=== PATIENT | female | born 1965 | race Caucasian/White ===

== ENCOUNTER 2019-07-07 14:47 | Emergency (ER) | payer BC, SELFPAY ==
[2019-07-07 15:08] VITALS: BP 160/95; PULSE 68; RESP 20; TEMP 36.7; O2SAT 100
--- NOTE | 2019-07-07 16:03 | ED.SKABFB ---
HPI - Skin/Abscess/Foreign Bdy General Chief complaint: Skin/Abscess/Foreign Body Stated complaint: rash Time Seen by Provider: 07/07/19 16:03 Source: patient Mode of arrival: ambulatory Limitations: no limitations History of Present Illness HPI narrative: A 54 y/o female, who is a nonsmoker/occasional drinker, presents to with c/o a unilateral rash on her right neck and shoulder since last night. Pt states she could feel the bumps coming up . Pt placed Hydrocortisone cream on the area. The newest area is on the shoulder. Pt decided to come in today because she was experiencing somewhat llower, mid-back pain and was on the phone with her mother who thought it could be shingles. Pt has not started any new medications recently. Pt notes that she has a PMHx of a similar episode in the past. Pt has a PSHx of a right nephrectomy and just saw her kidney specialist a couple weeks ago who told her that her creatinine was normal. She reports itchiness. It is recommended to the pt to take a photo/log of the are; discussed because of such short duration will treat broadly for both allergic and viral causes. Onset (ago): day(s) (1) Location: neck (right) and RUE (shoulder) Related Data Home Medications Medication Instructions Recorded Confirmed aspirin 81 mg tablet,delayed 81 mg PO DAILY 04/22/19 07/07/19 release cholecalciferol (vitamin D3) 25 1,000 unit PO DAILY 04/22/19 07/07/19 mcg (1,000 unit) capsule multivitamin 1 tablet PO DAILY 04/22/19 07/07/19 ramipril 5 mg capsule 5 mg PO DAILY 04/22/19 07/07/19 Allergies Allergy/AdvReac Type Severity Reaction Status Date / Time No Known Allergies Allergy Mild Verified 07/07/19 15:07 Review of Systems Review of Systems: Narrative: General/Constitutional: Denies: weight loss,fever Eyes: Denies: Redness,discharge Ears/Nose/Throat: Denies: Epistaxis,ear discharge Respiratory: Denies: Hemoptysis Gastrointestinal: Denies: Vomiting, Bleeding-rectal Skin: Reports: a rash on right neck and shoulder, itchiness Musculoskeletal: Reports: back pain Neurologic: Denies: Focal Weakness,Sz Hematologic: Denies: Petechiae/Purpura Psychiatric: Denies: Suicidal ideation All systems reviewed & are unremarkable except as noted in HPI and below PMFSH Past Medical History Medical History Class 3 severe obesity with serious comorbidity and body mass index (BMI) of 50.0 to 59.9 in adult (2006) Dependence on other enabling machines and devices (~06/07/05) Encounter for hepatitis C screening test for low risk patient Obstructive sleep apnea on CPAP (~06/07/05) Vitamin D deficiency, unspecified (~05/2018) Surgical History Surgical History H/O of hysterectomy with bilateral oophorectomy (~1999) d/t endometriosis H/O right nephrectomy (~05/12/14) Previous section (~1989) daughter: term: prolonged labor S/P aortic valve replacement (~05/12/14) S/P laparoscopic cholecystectomy (~2003) S/P robot-assisted surgical procedure (~05/12/14) Family History Family History Mother Family history of migraine headaches Cerebrovascular accident Hypothyroidism (acquired) H/O parathyroidectomy Father , 2016 Hypertension Diabetes mellitus Throat cancer Other Hypothyroidism (acquired) Social History Social History Social History: . . 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 Smoking status: Never smoker Second hand tobacco smoke exposure: No Alcohol intake: current Substance use: never Gender identity (if verbalized by the patient): Female Spiritual care concerns: No Agree to blood products: Yes Comments PCP: Dr. Dior At time of signature, agree with nursing past medical, surgical, social and family history. There is no relevant family history pertinent to
== END 2019-07-07 16:28 | disposition home or self-care (01) ==
PROVIDERS: Emergency Provider Emergency Medicine; PCP Family Medicine
DX: L30.8 Other specified dermatitis (principal)
CPT/HCPCS: 99213; G0463

== ENCOUNTER 2019-11-12 14:14 | Outpatient (CLI) | payer BC, SELFPAY ==
--- NOTE | ~2019-11-12 | MM_ITS ---
EXAMINATION: MM screening [facility] BI w darian HISTORY: Screening mammogram TECHNIQUE: Craniocaudal and mediolateral oblique 3-D tomosynthesis images were obtained and synthetic 2-D images were generated. CAD analysis was submitted and interpreted. COMPARISON: No prior mammogram is available for comparison at this institution. BREAST PARENCHYMAL COMPOSITION: The breasts are almost entirely fatty. FINDINGS: RIGHT BREAST: An asymmetry is present in the anterior third of the inner breast seen on the nipple in profile craniocaudal view. LEFT BREAST: A mass is present in the anterior third of the inner breast approximately 7 cm from the nipple.. IMPRESSION: 1. Bilateral breast findings as described above which may represent the patient's baseline however no comparison is currently available. 2. Comparison with prior mammograms is necessary. BI-RADS Category 0: Incomplete: Needs comparison with prior mammograms. Reviewed, dictated and finalized at location A. IMPRESSION: 1. Bilateral breast findings as described above which may represent the patient 's baseline however no comparison is currently available. 2. Comparison with prior mammograms is necessary. BI-RADS Category 0: Incomplete: Needs comparison with prior mammograms.
== END 2019-11-12 14:15 | disposition home or self-care (01) ==
PROVIDERS: PCP Family Medicine; Visit Provider Family Medicine
DX: Z12.31 Encounter for screening mammogram for malignant neoplasm of breast (principal); N63.20 Unspecified lump in the left breast, unspecified quadrant
CPT/HCPCS: 77063; 77067

== ENCOUNTER 2019-12-13 12:15 | Outpatient (CLI) | payer BC, SELFPAY ==
--- NOTE | ~2019-12-13 | MMUS_ITS ---
EXAMINATION: MM diagnostic mammo BI, US breast BI limited HISTORY: Right breast asymmetry and left breast mass on screening mammogram TECHNIQUE: Additional 3-D tomosynthesis images of the breasts were performed and synthetic 2-D images were generated. CAD analysis was submitted and interpreted. High resolution limited bilateral breast ultrasound was performed. COMPARISON: 11/12/2019, 08/08/2018, 08/08/2017 FINDINGS: MAMMOGRAPHIC FINDINGS: No definite persistent right breast asymmetry and no left breast mass is identified with spot dio abby views. There is no suspicious mass, calcification, or architectural distortion in either breast. Scattered benign-appearing calcifications are present. ULTRASOUND: A 4 mm cyst is noted at the 3:00 position 1 cm from the nipple in the right breast. There is no suspi cious cystic or solid mass in either breast in the region of the mammographic findings in question. IMPRESSION: 1. No mammographic or sonographic evidence of malignancy. 2. Recommend routine screening mammography in one year. BI-RADS Category 2: Benign finding(s). Reviewed, dictated and finalized at location A. IMPRESSION: 1. No mammographic or sonographic evidence of malignancy. 2. Recommend routine screening mammography in one year. BI-RADS Category 2: Benign finding(s).
== END 2019-12-13 12:16 | disposition home or self-care (01) ==
LOC: ANHIMG 12:15
PROVIDERS: PCP Family Medicine; Visit Provider Family Medicine
DX: R92.8 Other abnormal and inconclusive findings on diagnostic imaging of breast (principal)
CPT/HCPCS: 76642; 77066

== ENCOUNTER → 2020-06-02 08:00 | Outpatient (CLI) | payer BC, SELFPAY ==
--- NOTE | ~2020-06-02 | CT_ITS ---
EXAMINATION: CT abdomen pelvis wo con DATE: 06/02/2020 08:22 INDICATION: Right lower quadrant pain TECHNIQUE: Computed tomography (CT) of the abdomen and pelvis was performed without intravenous contr ast. The dose-length product was 1204.17 mGy-cm. Automated exposure control and iterative reconstruct ion technique were employed. COMPARISON: None. FINDINGS: Lung bases are unremarkable. Heart size normal. No significant pleural or pericardial effus ion. Status post cholecystectomy. The liver, spleen, pancreas, adrenal glands are unremarkable. Right kidney is not identified. Surgica l changes right upper abdomen, likely from previous nephrectomy. Small hiatal hernia. Small fat-conta ining umbilical hernia. Nonobstructive bowel gas pattern. No abnormal pelvic masses or fluid collections. There is a 3.6 cm l eft renal cyst measuring 7 Hounsfield units. No free air or free fluid. Normal appendix. No significa nt vascular abnormality. No lymphadenopathy. IMPRESSION: 1. No acute abdominal abnormality. Findings to account for patient's symptoms. Reviewed, dictated and finalized at location A. 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
== END ==
PROVIDERS: PCP Nurse Practitioner Family; Visit Provider Nurse Practitioner Family
DX: R10.31 Right lower quadrant pain (principal)
CPT/HCPCS: 74176

== ENCOUNTER 2020-12-11 15:40 | Outpatient (CLI) | payer BC, SELFPAY ==
--- NOTE | ~2020-12-11 | MM_ITS ---
EXAMINATION: MM screening [place] BI w darian HISTORY: Screening TECHNIQUE: Craniocaudal and mediolateral oblique 3-D tomosynthesis images were obtained and synthetic 2-D images were generated. CAD analysis was submitted and interpreted. COMPARISON: Comparison to multiple prior studies sequentially, with oldest reviewed study dated 08/08. BREAST PARENCHYMAL COMPOSITION: There are scattered areas of fibroglandular density. FINDINGS: There is no evidence of suspicious mass, calcification, or architectural distortion to sugg est malignancy in either breast. There has been no suspicious interval change. IMPRESSION: 1. No mammographic evidence of malignancy. 2. Recommend routine screening mammography in one year. BI-RADS Category 1: Negative Reviewed, dictated and finalized at location A.
== END 2020-12-11 15:41 | disposition home or self-care (01) ==
LOC: ANHIMG 15:43
PROVIDERS: PCP Nurse Practitioner Family; Visit Provider Family Medicine
DX: Z12.31 Encounter for screening mammogram for malignant neoplasm of breast (principal)
CPT/HCPCS: 77063; 77067

== ENCOUNTER 2022-01-28 10:02 | Outpatient (CLI) | payer BC, SELFPAY ==
--- NOTE | ~2022-01-28 | MM_ITS ---
EXAMINATION: MM screening [facility] BI w darian HISTORY: Screening mammogram TECHNIQUE: Craniocaudal and mediolateral oblique 3-D tomosynthesis images were obtained and synthetic 2-D images were generated. CAD analysis was submitted and interpreted. COMPARISON: 12/11/2020, 12/13/2019, 11/12/2019 BREAST PARENCHYMAL COMPOSITION: The breasts are almost entirely fatty. FINDINGS: Scattered benign-appearing calcifications are present. There is no suspicious mass, calcifi cation, or architectural distortion to suggest malignancy in either breast. There has been no suspici ous interval change. IMPRESSION: 1. No mammographic evidence of malignancy. 2. Recommend routine screening mammography in one year. BI-RADS Category 2: Benign finding(s). Reviewed, dictated and finalized at location A.
== END 2022-01-28 10:03 | disposition home or self-care (01) ==
LOC: ANHIMG 10:04
PROVIDERS: PCP Nurse Practitioner Family; Visit Provider Nurse Practitioner Family
DX: Z12.31 Encounter for screening mammogram for malignant neoplasm of breast (principal)
CPT/HCPCS: 77063; 77067

== ENCOUNTER 2022-04-07 15:29 | Outpatient (CLI) | payer BC, SELFPAY ==
--- NOTE | ~2022-04-07 | XR_ITS ---
XR foot LT 2V DATE: 04/07/2022 15:50 INDICATION: Left foot pain TECHNIQUE: AP and lateral views COMPARISON: 10/24/2013 left foot FINDINGS: There is prominent plantar calcaneal enthesopathy without associated erosive change or ghulam ostitis. Mild hallux valgus and bunion deformity. There is moderate osteoarthritis at the first tarsometatarsa l joint. There is moderate osteoarthritis at the first metatarsophalangeal joint. IMPRESSION: Mild hallux valgus and bunion deformity Osteoarthritis Plantar calcaneal enthesopathy Reviewed, dictated and finalized at location A. 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
== END 2022-04-07 15:30 | disposition home or self-care (01) ==
PROVIDERS: PCP Nurse Practitioner Family; Visit Provider Nurse Practitioner Family
DX: M19.072 Primary osteoarthritis, left ankle and foot (principal); M77.32 Calcaneal spur, left foot; M20.12 Hallux valgus (acquired), left foot
CPT/HCPCS: 73620

== ENCOUNTER 2023-05-25 15:19 | Outpatient (CLI) | payer BC, SELFPAY ==
--- NOTE | ~2023-05-25 | MM_ITS ---
EXAMINATION: MM screening [place] BI w darian HISTORY: Screening mammogram TECHNIQUE: Craniocaudal and mediolateral oblique 3-D tomosynthesis images were obtained and synthetic 2-D images were generated. CAD analysis was submitted and interpreted. COMPARISON: 01/28/2022, 12/11/2020 bilateral screening mammogram examinations BREAST PARENCHYMAL COMPOSITION: The breasts are almost entirely fatty. FINDINGS: There is no evidence of suspicious mass, calcification, or architectural distortion to sugg est malignancy in either breast. There has been no suspicious interval change. IMPRESSION: 1. No mammographic evidence of malignancy. 2. Recommend routine screening mammography in one year. BI-RADS Category 1: Negative Reviewed, dictated and finalized at location A. 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
== END 2023-05-25 15:20 | disposition home or self-care (01) ==
LOC: ANHIMG 15:22
PROVIDERS: PCP Family Medicine; Visit Provider Family Medicine
DX: Z12.31 Encounter for screening mammogram for malignant neoplasm of breast (principal)
CPT/HCPCS: 77063; 77067

== ENCOUNTER 2024-02-19 10:01 | Emergency (ER) | payer BC, SELFPAY ==
[2024-02-19 10:05] VITALS: BP 132/65; PULSE 68; RESP 20; TEMP 35.9; O2SAT 98
--- NOTE | 2024-02-19 10:10 | ED.SKABFB ---
HPI - Skin/Abscess/Foreign Bdy General Chief complaint: Skin/Abscess/Foreign Body Stated complaint: Rash Time Seen by Provider: 02/19/24 10:11 Source: patient, RN notes reviewed and old records reviewed Mode of arrival: ambulatory Limitations: no limitations History of Present Illness HPI narrative: Patient presents with complaints of rash to abdomen and arms. She reports the month she has had a scattered rash for a little more than 1 week, says it is worsening. She attributes this to starting prednisone about 10 days ago, says that she discontinued the prednisone because she believes that is what caused her rash. She is stating that her rash has worsened despite stopping the prednisone. She has been using topical ointments with no success. She denies any change in detergents, lotions, soaps. Has not ingested anything unusual recently with the exception of prednisone. She does report that she has an outside dog that comes in after rolling in the plants outside. She voices no other concerns or complaints Related Data Home Medications Medication Instructions Recorded Confirmed aspirin 81 mg tablet,delayed 81 mg PO DAILY 04/22/19 02/19/24 release (Martine Low Dose Aspirin) multivitamin 1 tablet PO DAILY 04/22/19 02/19/24 cholecalciferol (vitamin D3) 50 50 mcg PO DAILY 04/28/20 02/19/24 mcg (2,000 unit) capsule carvedilol 25 mg tablet (Coreg) 25 mg PO Q12H 07/17/23 02/19/24 allopurinol 300 mg tablet 300 mg PO DAILY 01/17/24 02/19/24 empagliflozin 10 mg tablet 10 mg PO DAILY 01/17/24 02/19/24 (Jardiance) furosemide 20 mg tablet 20 mg PO DAILY 01/17/24 02/19/24 sacubitril 24 mg-valsartan 26 mg 1 tablet PO BID 01/17/24 02/19/24 tablet (Entresto) Allergies Allergy/AdvReac Type Severity Reaction Status Date / Time No Known Allergies Allergy Mild Verified 02/19/24 10:12 Review of Systems Review of Systems: All systems reviewed & are unremarkable except as noted in HPI and below Constitutional: Constitutional: Reports no additional constitutional complaints ENT: Reports system reviewed and no additional complaints, except as documented Cardiovascular: Cardiovascular: Reports no additional cardiovascular complaints Respiratory: Respiratory: Reports no additional respiratory complaints Gastrointestinal: Gastrointestinal: Reports no additional gastrointestinal complaints Integumentary/Breasts: Skin/Breast: Reports system reviewed and no additional complaints, except as docu, Reports as per HPI and Reports rash PMFSH Past Medical History Medical History (Updated 02/20/24 @ 00:01 by Kaiden Valenzuela) Bilateral chronic knee pain Chronic gout, unspecified, 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) Chronic right hip pain Cyst of skin Disorder of kidney and ureter, unspecified (~04/2014) Essential (primary) hypertension (~2013) Hx of renal cell carcinoma Hyperlipidemia LDL goal <100 (~10/2018) Left foot pain Nonischemic cardiomyopathy Obstructive sleep apnea on CPAP (~06/07/05) Overactive bladder (~05/2013) Overweight (05/02/16) Postmenopausal (~05/2013) Right lower quadrant pain Type 2 diabetes mellitus without complications Surgical History Surgical History H/O of hysterectomy with bilateral oophorectomy (~1999) d/t endometriosis H/O right nephrectomy (~05/12/14) Hx of colonoscopy with polypectomy (~03/2020) S/P aortic valve replacement (~02/2014) S/P robot-assisted surgical procedure (~05/12/14) Status post transcatheter aortic valve replacement (~08/2023) Family History Family History Mother Family history of migraine headaches Cerebrovascular accident Hypothyroidism (acquired) H/O parathyroidectomy Father , 2016 Hypertension Diabetes mellitus Throat cancer Other Hypothyroidism (acquired) Social History Social History (Updated 02/01/24 @ 10:50 by LACI Butler) Social His
== END 2024-02-19 11:20 | disposition home or self-care (01) ==
PROVIDERS: Emergency Provider Nurse Practitioner Family; PCP Family Medicine
DX: L30.9 Dermatitis, unspecified (principal); I10 Essential (primary) hypertension; E78.5 Hyperlipidemia, unspecified; G47.33 Obstructive sleep apnea (adult) (pediatric); E11.9 Type 2 diabetes mellitus without complications; M10.9 Gout, unspecified; I42.8 Other cardiomyopathies; Z95.2 Presence of prosthetic heart valve; Z85.528 Personal history of other malignant neoplasm of kidney; Z90.5 Acquired absence of kidney
CPT/HCPCS: 99213; G0463

== ENCOUNTER 2024-05-27 08:56 | Outpatient (CLI) | payer BC, SELFPAY ==
--- NOTE | ~2024-05-27 | MM_ITS ---
EXAMINATION: MM screening [place] BI w darian HISTORY: Screening mammogram TECHNIQUE: Craniocaudal and mediolateral oblique 3-D tomosynthesis images were obtained and synthetic 2-D images were generated. CAD analysis was submitted and interpreted. COMPARISON: 05/25/2023, 01/28/2022, 12/11/2020 BREAST PARENCHYMAL COMPOSITION:Not Dense. The breasts are almost entirely fatty FINDINGS: No suspicious mass, calcification, or architectural distortion are identified in either neli ast to suggest malignancy. There has been no suspicious interval change. IMPRESSION: No mammographic evidence of malignancy. Recommend routine screening mammography in one year. BI-RADS Category 1: Negative Reviewed, dictated and finalized at location . 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
== END 2024-05-27 08:57 | disposition home or self-care (01) ==
LOC: ANHIMG 08:58
PROVIDERS: PCP Family Medicine; Visit Provider Family Medicine
DX: Z12.31 Encounter for screening mammogram for malignant neoplasm of breast (principal)
CPT/HCPCS: 77063; 77067

== ENCOUNTER 2024-07-24 11:42 | Outpatient (CLI) | payer BC, SELFPAY ==
--- OUTSIDE RECORDS SUMMARY | 2024-07-24 13:35 | XMS_ITS | Referral Summary ---
Author Organization [facility] Address [address] [place] [address] Care Team Providers Care Regional Hr Manager Name Role Phone Lynette Henry RN Unavailable [phone] Raul Jacobo MD Unavailable Unavailable Shadi Molina MD Primary Care Provider Cresencio Cisse MD Unavailable [phone] Source Comments [facility],non-owned Affiliates and Associated Physician Practices is amultiple site organization consisting of ambulatory clinics and hospital sitesin [place], [place], [place] and [place]. This disclosure is being madepursuant to the Care Everywhere program and may not contain all information available regarding this patient. Last updated 18.[facility] Encounters Date Type Department Care Team Description 07/12/2024 Telephone [facility] [address] [place] [address], [address] [address] Cyndee Weaver MD Med Change Request 07/12/2024 Refill [facility] [id number] [place] [address], [address] [address] Cyndee Weaver MD MEDICATION REFILL 06/25/2024 Refill [facility] [address] [place] [address], [address] [address] Cyndee Weaver MD MEDICATION REFILL 04/23/2024 Travel 04/23/2024 11:20 AM BOAT TENDER Office Visit [facility] [address], [address] [place] [address] Cyndee Weaver MD Nonischemic cardiomyopathy, EF 30% > 50% > normal (Primary Dx); Aortic insufficiency, severe, bioprosthetic AVR in 2013.Gradient 43/22 mmHg in 12/2021; S/p TAVR (transcatheter aortic valve replacement), bioprosthetic from Last 3 Months Allergies No known active allergies Medications * Be aware that medications may not be up to date on this document. Alwaysverify current medications with the patient. Medication Sig Dispensed Refills Start Date End Date Status aspirin (ASPIRIN) 81 MG chew tablet Take 1 Tab by mouth once daily. 03/11/2014 Active multivitamin daily (THERAGRAN) tablet Take 1 Tab by mouth daily with breakfast. 03/11/2014 Active allopurinol (ZYLOPRIM) 300 MG tablet 1 (one) tablet once daily 07/23/2014 Active oxybutynin CR 24hr (DITROPAN-XL) 5 MG tablet TAKE 1 TABLET DAILY 90 tablet 11 12/18/2017 Active Vitamin D, Cholecalciferol , 1000 units Take 1 (one) tablet by mouth once daily Active simvastatin (Zocor) 20 MG tablet Combined both atorvastatin and simvastatin in the toshia bottle and takes whatever comes out. 07/05/2023 Active dulaglutide (Trulicity) 0.75 MG/0.5ML injection Inject 0.75 (three-quarters) mg subcutaneously every 7 days Active empagliflozin (Jardiance) 10 MG tablet Take 1 (one) tablet by mouth once daily 100 tablet 3 10/21/2023 5 Active empagliflozin (Jardiance) 10 MG tablet Take 1 (one) tablet by mouth once daily 90 tablet 3 10/24/2023 Active carvedilol (Coreg) 25 MG tablet Take 1 (one) tablet by mouth 2 times daily with morning and evening meal 180 tablet 3 06/29/2024 6 Active furosemide (Lasix) 20 MG tablet Take 1 (one) tablet by mouth once daily 90 tablet 3 07/13/2024 6 Active losartan (Cozaar) 50 MG tablet Take 1 (one) tablet by mouth once daily 90 tablet 3 07/12/2024 Active carvedilol (Coreg) 25 MG tablet Take 1 (one) tablet by mouth 2 times daily with morning and evening meal 180 tablet 3 07/06/2023 5 Discontinue d(Reorder) furosemide (Lasix) 20 MG tablet Take 1 (one) tablet by mouth once daily 90 tablet 3 08/23/2023 5 Discontinue d(Reorder) sacubitril-vals derek (Entresto) 24-26 MG tablet Take 1 (one) tablet by mouth 2 times daily 180 tablet 3 10/20/2023 5 Discontinue d(List Clean-Up) losartan (Cozaar) 50 MG tablet Take 1 (one) tablet by mouth once daily 5 Discontinue d(Reorder) Active Problems Problem Noted Date Diagnosed Date S/p TAVR (transcatheter aort ic valve replacement), bioprosthetic 09/25/2023 Overview (09/25/2023): 09/25/23 Dr. Patterson/Dr. Foy implanted an [employer] 26 mm S3 Ultra via RCFA access. Intra-op aortic mean gradient 10 mmHg, no PVL on echocardiogram. Severe aortic stenosis 09/06/2023 Moderate bioprosthetic aortic valve stenosis. Aortic insufficiency, severe , bioprosthetic AVR in 2013.Gradient 43/22 mmHg in 12/202109/18/2015 Right nephrectomy for renal cell carcinoma 09/23 Nonischemic cardiomyopathy, EF 30% > 50% > derrick l 04/21/2014 DOREEN (obstructive sleep apnea) 04/21/2014 Benign hypertension 10/12/2013 Overview (12/30/2021): BENIGN HYPERTENSION Resolved Problems Problem Noted Date Diagnosed Date Resolved Date Renal mass 05/11/2014 09/22/2014 Aortic insufficiency, severe , s/p bioprosthetic AVR in 01/201404/21/2014 09/18/2015 Hemoptysis 02/18/2014 04/21/2014 Elevated troponin 02/18/2014 04/21/2014 Renal mass, bilateral 02/18/20142014 Social History Tobacco Use Types Packs/Day Years Used Date Smoking Tobacco: Never Smokeless Tobacco: Never Tobacco Cessation:Counseling Given: Not Answered Alcohol Use Standard Drinks/Week Comments No 0 (1 standard drink = 0.6 oz pur e alcohol) AUDIT-C Answer Date Recorded Q1: How often do you have a drink containing alc ohol? Monthly or less 09/25/2023 Q2: How many drinks containi ng alcohol do you have on a typical day when you are drinking? 1 or 2 09/25/2023 Q3: How often do you have si x or more drinks on one occasion? Never 09/25/2023 Overall Financial Resource Strain (CARDIA) Answe r Date Recorded How hard is it for you to pa y for the very basics like food, housing, medical care, and heating? Not hard at all 09/26/2023 [facility] [place] [facility] - Occupational Stress Questionnaire Answer Date Recorded Do you feel stress - tense, restless, nervous, or anxious, or unable to sleep at night because your mind is troubled all the time - these days? Not at all 09/26/2023 Hunger Vital Sign Answer Date Recorded Within the past 12 months, y ou worried that your food would run out before you got the money to buy more. Never true 09/26/19 24 Within the past 12 months, t he food you bought just didn't last and you didn't have money to get more. Never true 09/26/2023 PRAPARE - Transportation Answer Date Re corded In the past 12 months, has l ack of transportation kept you from medical appointments or from getting medications? No 08/29 In the past 12 months, has l ack of transportation kept you from meetings, work, or from getting things needed for daily living? No 09/26/2023 Housing Stability Vital Sign Answer Adam e Recorded In the last 12 months, was t here a time when you were not able to pay the mortgage or rent on time? No 09/26/2023 In the last 12 months, how many places have you lived? 1 09/26/2023 In the last 12 months, was t here a time when you did not have a steady place to sleep or slept in a intermediate (including now)? No 09/26/2023 Sex and Gender Information Value Date Recorded Sex Assigned at Not on file Gender Identity Not on file Sexual Orientation Not on file Last Filed Vital Signs Vital Sign Reading Time Taken Comments Blood Pressure 116/69 04/23/2024 11:09 AM BOAT TENDER Pulse 76 04/23/2024 11:09 AM BOAT TENDER Temperature 36.5 C (97.7 F) 09/26/2023 7:39 AM CDT Respiratory Rate 20 09/26/2023 7:39 AM CDT Oxygen Saturation 100% 09/26/2023 9:25 AM CDT Inhaled Oxygen Concentration 21% 11:35 PM CDT Weight 167.9 kg (370 lb 3.2 oz) 024 11:09 AM BOAT TENDER Height 175.3 cm (5' 9.02 ) 04/23/2024 1 1:09 AM BOAT TENDER Body Mass Index 54.64 04/23/2024 11:09 AM BOAT TENDER Functional Status Functional Status Response Date of Assess ment Is person deaf or have serious hearing difficult y? No 09/26/2023 Is person blind or have serious difficulty seein g? No 09/26/2023 Does person have serious dif ficulty walking/climbing stairs? No 09/26/2023 Does person have difficulty dressing/bathing? No 09/26/2023 Does person have difficulty doing errands alone? No 09/26/2023 Cognitive Status Response Date of Assessm ent Does person have difficulty concentrating/remembering/making decisions? No 09/26/2023 Plan of Treatment Upcoming Encounters Date Type Department Care Team (Late st Contact Info) Description 10/23/2024 11:10 AM CDT Office Visit [facility] [address] [place] [address], [address] [address] Cyndee Weaver MD [address] [place] [phone] Medical Devices Implanted Type Area American History Teacher Device Identifier Shelf Expiration Date Model / Serial / Lot Vascular Graft Implanted:Qty: 1 on 03/07/2014 by Hammad Reno MD at [facility] Graft Aorta Maquet 07/29/2017 [id number] / / Vlv Magna Ease All Sz - [id number] Implanted:Qty: 1 on 03/07/2014 by Hammad Reno MD at [facility] N/A: Heart [employer] 10/05/2017 [id number] / [id number] / Cath Pace Eltrd Biplr Dist Tip Balln Flw - [id number] Implanted:Qty: 1 on 09/25/2023 by Toshia Patterson MD at [facility] [employer] [id number] 02/25/2025 [id number] / [id number] / [id number] Valve Aor Evolut Fx 29mm - [id number] Implanted:Qty: 1 on 09/25/2023 by Toshia Patterson MD at [facility] [employer] [id number] 05/31/2025 [id number] X- 29 / [id number] / [id number] Vlv Aor 26mm Amparo 3 Cmndr Edwrd - [id number] Implanted:Qty: 1 on 09/25/2023 by Toshia Patterson MD at [facility] [employer] [id number] 06/25/2026 [id number] / [id number] / [id number] Procedures Procedure Name Priority Date/Time Associated Diagnosis Comments RENAL FUNCTION PANEL AM Draw 09/26/2023 6:11 AM CDT from Last 3 Months or Most Recently Relevant to Health Maintenance Results * (ABNORMAL) RENAL FUNCTION PANEL (09/26/2023 6:11 AM CDT) BUN 13 7 - 26 mg/dL 09/26/2023 6:58 AM [facility] Creatinine 0.89 0.56 - 0.96 mg/dL 09/26/2023 6:58 AM [facility] Sodium 140 136 - 145 mmol/L 09/26/2023 6:58 AM [facility] Potassium 3.9 3.5 - 4.5 mmol/L 09/26/2023 6:58 AM [facility] Chloride 110(H) 98 - 107 mmol/L 09/26/2023 6:58 AM [facility] CO2 23 22 - 29 mmol/L 09/26/2023 6:58 AM [facility] Glucose 94 70 - 115 mg/dL 09/26/2023 6:58 AM [facility] Albumin 3.3(L) 3.4 - 5.0 g/dL 09/26/2023 6:58 AM [facility] Calcium 9.7 8.4 - 10.2 mg/dL 09/26/2023 6:58 AM [facility] Phosphorus 2.9 2.9 - 5.1 mg/dL 09/26/2023 6:58 AM [facility] Anion Gap 7 6 - 16 09/26/2023 6:58 AM [facility] BUN/Creatinine Ratio 15 7 - 23 09/26/2023 6:58 AM [facility] Osmolality Calculated 290 275 - 295 mOsm/kg 09/26/2023 6:58 AM [facility] eGFR by CKD-EPI 75(L) >=90 mL/min/1.7 3 m2 09/26/2023 6:58 AM [facility] Blood BLOOD SPECIMEN / Unknown Lab Venipuncture / Unknown 09/26/2023 6:11 AM CDT 09/26/2023 6:25 AM T Toshia Patterson MD LAB - CHEMISTRY FAHAD FUENTES [facility] Organization Address [facility]/State/ZIP Co de Phone Number [facility] [address] [place] [address], [facility] [phone] from Last 3 Months or Most Recently Relevant to Health Maintenance Advance Directives * Full Code (Latest Code Status on File) Date Activated Date Inactivated Comments 09/26/2023 7:55 AM 09/26/2023 1:24 PM * Full Code Date Activated Date Inactivated Comments 09/25/2023 1:55 PM 09/26/2023 7:55 AM * Full Code Date Activated Date Inactivated Comments 06/26/2023 11:06 AM 06/26/2023 2:52 PM * Full Code Date Activated Date Inactivated Comments 05/12/2014 1:03 PM 05/14/2014 10:44 AM * Full Code Date Activated Date Inactivated Comments 03/07/2014 1:05 PM 03/12/2014 2:13 PM Care Teams Regional Hr Manager Relationship Specialty Start Date End Date Shadi Molina MD [address] [place] [address] PCP - General Family Medicine 12/30/21 Lynette Henry, RN Clinical Psychiatrist 02/18/14 Raul Jacobo MD Cardiovascular Disease 12/10/19 [place] [address] [facility] [address] [place] [address] Cardiovascular Disease 10/05/23
--- OUTSIDE RECORDS SUMMARY | 2024-07-24 13:36 | XMS_ITS ---
Author Organization [facility] Address [address] [place] [address] Care Team Providers Care Crane Service Technician Name Role Phone Lynette Henry RN Unavailable [phone] Raul Jacobo MD Unavailable Unavailable Shadi Molina MD Primary Care Provider Cresencio Cisse MD Unavailable [phone] Active Problems Problem Noted Date Diagnosed Date S/p TAVR (transcatheter aort ic valve replacement), bioprosthetic 09/25/2023 Overview (09/25/2023): 09/25/23 Dr. Patterson/Dr. Foy implanted an [employer] 26 mm S3 Ultra via RCFA access. [...] Benign hypertension 10/12/2013 Overview (12/30/2021): BENIGN HYPERTENSION Current Oncology Plans No current plan information found. Past Plans No past plan information found. Radiation Treatments * No radiation treatments are documented for this patient in Epic. Treatments may have been administered in another system. Lifetime Dose Tracking * Chemical Lifetime Dose Automatic Entry Manual Entr y Air Kerma 4,436.45 mGy 0 mGy 4,436.45 mGy Resolved Problems Problem Noted Date Diagnosed Date Resolved Date Renal mass 05/11/2014 09/22/2014 Aortic insufficiency, severe , s/p bioprosthetic AVR in 01/201404/21/2014 09/18/2015 Hemoptysis 02/18/2014 04/21/2014 Elevated troponin 02/18/2014 04/21/2014 Renal mass, bilateral 02/18/20142014
--- OUTSIDE RECORDS SUMMARY | 2024-07-24 13:36 | XMS_ITS | Clinical Summary ---
Author Organization [facility] Address [address] [place] [address] Phone Care Team Providers Care Art Model Name Role Phone Shadi Molina MD Primary Care Provider Allergies No known active allergies Medications Medication Sig Dispensed Refills Start Date End Date Status aspirin (ASPIR) 81 MG EC tablet 1 daily 0 06/01/2018 Active Multiple Vitamins-Minerals (MULTIVITAMIN ADULT) tablet 1 alex;u 0 06/01/2018 Active allopurinol (ZYLOPRIM) 300 MG tablet 1 bid 0 06/01/2018 Active Cholecalciferol (VITAMIN D3) 1000 units capsule 1 daily 0 06/04/2018 Active oxybutynin XL (DITROPAN-XL) 10 MG 24 hr tablet 04/22/2019 Active atorvastatin (LIPITOR) 20 MG tablet 04/09/2019 Active metFORMIN (GLUCOPHAGE) 1000 MG tablet TK 1 T PO D 10/22/2019 Active ramipril (ALTACE) 10 MG capsule 05/17/2021 Active carvedilol (COREG) 12.5 MG tablet Take 1 tablet (12.5 mg total) by mouth 2 (two) times a day 180 tablet 3 05/20/2021 Active Active Problems Problem Noted Date Diagnosed Date Aortic valve disorder 05/31/2019 Diabetes mellitus without complication 0 Essential (primary) hypertension 06/04/2018 Obstructive sleep apnea 06/04/2018 Nonrheumatic aortic valve stenosis 06/04/2018 Vitamin D deficiency 06/04/2018 Malignant neoplasm of right kidney, except renal pelvis 06/04/2018 Cardiomyopathy 04/21/2014 Aortic valve regurgitation 10/12/2013 Overview (06/05/2019): aortic insufficiency Gout 10/12/2013 Overview (06/05/2019): GOUT NOS Pure hypercholesterolemia 10/12/2013 Overview (06/05/2019): PURE HYPERCHOLESTEROLEM Resolved Problems Problem Noted Date Diagnosed Date Resolved Date Chronic kidney disease, stage 3 (moderate) 06/04/2018 05/14/2021 Immunizations Name Administration Dates Next Due Influenza TIV (IM) 02/26/2022,,06/05/2019(Deferred: Patient Refused) Tdap 04/01/2009 Family History Medical History Relation Comments Kidney disease Neg Hx Social History Tobacco Use Types Packs/Day Years Used Date Smoking Tobacco: Never Smokeless Tobacco: Never Alcohol Use Standard Drinks/Week Comments Yes 0 (1 standard drink = 0.6 oz pur e alcohol) Alcoholic Drinks/day: rare Sex and Gender Information Value Date Recorded Sex Assigned at Not on file Gender Identity Not on file Sexual Orientation Not on file Last Filed Vital Signs Vital Sign Reading Time Taken Comments Blood Pressure 118/80 05/18/2022 1:11 PM SALES SPECIAL AGENT Pulse 72 05/18/2022 1:11 PM SALES SPECIAL AGENT Temperature 35.4 C (95.7 F) 05/18/2022 1:11 PM SALES SPECIAL AGENT Respiratory Rate - - Oxygen Saturation - - Inhaled Oxygen Concentration - - Weight 180 kg (397 lb) 05/18/2022 1:11 PM SALES SPECIAL AGENT Height 172.7 cm (5' 8 ) 05/18/2022 1:11 PM SALES SPECIAL AGENT Body Mass Index 60.36 05/18/2022 1:11 PM SALES SPECIAL AGENT Plan of Treatment Health Maintenance Due Date Last Done Comments Influenza Vaccine (#1) 2024 02/26/2022, 2020 Care Teams Art Model Relationship Specialty Start Date End Date Shadi Molina MD [address] [place] [address] PCP - General Internal Medicine 04/26/21
--- OUTSIDE RECORDS SUMMARY | 2024-07-24 13:36 | XMS_ITS | Clinical Summary ---
Author Organization [facility] Address [address] [facility] [place] [address] Care Team Providers Care Bronc Buster Name Role Phone Lynette Henry RN Unavailable [phone] Raul Jacobo MD Unavailable Unavailable Shadi Molina MD Primary Care Provider Cresencio Cisse MD Unavailable [phone] Source Comments [facility],non-owned Affiliates and Associated Physician Practices is amultiple site organization consisting of ambulatory clinics and hospital sitesin [place], [place], [place] and [place]. This disclosure is being madepursuant to the Care Everywhere program and may not contain all information available regarding this patient. Last updated 18.[facility]beat Allergies No known active allergies Medications * [...] Combined both atorvastatin and simvastatin in the [facility] bottle and takes whatever comes out. 07/05/2023 [...] (09/25/2023): 09/25/23 Dr. Patterson/Dr. Foy implanted an 3LM 26 mm S3 Ultra via RCFA access. Intra-op aortic mean gradient 10 mmHg, no PVL on echocardiogram. Severe aortic stenosis 09/06/2023 Moderate bioprosthetic aortic valve stenosis. 08 /09/2020 Aortic insufficiency, severe , bioprosthetic AVR in [...] troponin 02/18/2014 04/21/2014 Renal mass, bilateral 02/18/20142014 Encounters Date Type Department Care Team Description 07/12/2024 Telephone [facility] Heart & Vascular [address], [address] [address] Cyndee Weaver MD Med Change Request 07/12/2024 Refill [facility] Heart Vascular [address], [address] [address] Cyndee Weaver MD MEDICATION REFILL 06/25/2024 Refill [facility] Vascular [address], [address] [address] Cyndee Weaver MD MEDICATION REFILL 04/23/2024 11:20 AM GRINDER OPERATOR AUTOMATIC Office Visit [facility] Care [address] [place] [address], [address] [place] [address] Cnydee Weaver MD Nonischemic cardiomyopathy, EF 30% > 50% > normal (Primary Dx); Aortic insufficiency, severe, bioprosthetic AVR in 2013.Gradient 43/22 mmHg in 12/2021; S/p TAVR (transcatheter aortic valve replacement), bioprosthetic 04/23/2024 Travel from Last 3 Months Social History Tobacco Use Types Packs/Day Years [...] and heating? Not hard at all 09/26/2023 [facility] - Occupational Stress [...] place to sleep or slept in a nursing home (including now)? No 09/26/2023 Sex and Gender Information Value Date Recorded Sex Assigned at Not on file Gender Identity Not on file Sexual Orientation Not on file Last Filed Vital Signs Vital Sign Reading Time Taken Comments Blood Pressure 116/69 04/23/2024 11:09 AM GRINDER OPERATOR AUTOMATIC Pulse 76 04/23/2024 11:09 AM GRINDER OPERATOR AUTOMATIC Temperature 36.5 C (97.7 F) 09/26/2023 7:39 AM CDT Respiratory Rate 20 09/26/2023 7:39 AM CDT Oxygen Saturation 100% 09/26/2023 9:25 AM CDT Inhaled Oxygen Concentration 21% 11:35 PM CDT Weight 167.9 kg (370 lb 3.2 oz) 024 11:09 AM GRINDER OPERATOR AUTOMATIC Height 175.3 cm (5' 9.02 ) 04/23/2024 1 1:09 AM GRINDER OPERATOR AUTOMATIC Body Mass Index 54.64 04/23/2024 11:09 AM GRINDER OPERATOR AUTOMATIC Plan of Treatment Upcoming Encounters Date Type Department Care Team (Late st Contact Info) Description 10/23/2024 11:10 AM CDT Office Visit [facility] Heart [facility] Vascular Care [address] [facility], [address] [place] [address] [place] [address] [facility] [address] [place] [phone] Health Maintenance Due Date Last Done Comments COLOGUARD (AGES 45-75) - COLON CA SCREENING 1964 COLON MONITORING 1964 COLONOSCOPY - COLON CA SCREENING 1964 CT COLONOGRAPHY - COLON CA SCREENING 1964 Colorectal Cancer Screening 1964 FIT - COLON CA SCREENING 1964 FLEX SIG - COLON CA SCREENING 1964 MAMMOGRAM 1964 PAP SMEAR 1964 HIV SCREENING 1979 HEPATITIS C SCREENING 03/19/1982 DTAP/TDAP/TD VACCINES (1 - Tdap) 1983 PNEUMOCOCCAL VACCINE 50+ (1 of 2 - PCV) 1983 ZOSTER VACCINE (1 of 2) 2014 COVID-19 VACCINE (1 - season) 2024 INFLUENZA VACCINE (#1) 2024 02/26/2022, 2020 Respiratory Syncytial Virus (RSV) Vaccine Pt: or over 60 yrs (1 - Risk 60-74 years 1-dose series) 2024 DEPRESSION SCREENING 05/29/2024 SCREENING FOR DIABETES 09/25/2026 , 09/25/2023, 09/25/2023, Additional history exists HEPATITIS B VACCINE Aged Out No longe r eligible based on patient's age to complete this topic HIB VACCINE Aged Out No longer eligi ble based on patient's age to complete this topic HPV VACCINE Aged Out No longer eligi ble based on patient's age to complete this topic MENINGOCOCCAL (Group B) VACCINE Aged Out No longer eligible based on patient's age to complete this topic MENINGOCOCCAL VACCINE Aged Out No colton tyrone eligible based on patient's age to complete this topic Medical Devices Implanted Type Area Media Librarian Device Identifier Shelf Expiration Date Model / Serial / Lot Vascular Graft Implanted:Qty: 1 on 03/07/2014 by Hammad Reno MD at [facility] Graft Aorta Maquet 07/29/2017 [id number] / / Vlv Magna Ease All Sz - [id number] Implanted:Qty: 1 on 03/07/2014 by Hammad Reno MD at [facility] N/A: Heart [employer] 10/05/2017 [id number] / [id number] / Cath Pace Eltrd Biplr Dist Tip Balln Flw - [id number] Implanted:Qty: 1 on 09/25/2023 by Imer Patterson MD at [facility] [employer] [id number] 02/25/2025 [id number] / [id number] / [id number] Valve Aor Evolut Fx 29mm - [id number] Implanted:Qty: 1 on 09/25/2023 by Imer Patterson MD at [facility] [employer] [id number] 05/31/2025 [id number] X- 29 / [id number] / [id number] Vlv Aor 26mm Amparo 3 Cmndr Edwrd - [id number] Implanted:Qty: 1 on 09/25/2023 by Imer Patterson MD at [facility] [employer] [id number] 06/25/2026 [id number] / [id number] / [id number] Procedures Procedure Name Priority Date/Time Associated Diagnosis Comments RENAL FUNCTION PANEL AM Draw 09/26/2023 6:11 AM CDT from Last 3 Months or Most Recently Relevant to Health Maintenance Results * (ABNORMAL) RENAL FUNCTION PANEL (09/26/2023 6:11 AM CDT) BUN 13 7 - 26 mg/dL 09/26/2023 6:58 AM [facility] Creatinine 0.89 0.56 - 0.96 mg/dL 09/26/2023 6:58 AM [facility] Sodium 140 136 - 145 mmol/L 09/26/2023 6:58 AM [facility] Potassium 3.9 3.5 - 4.5 mmol/L 09/26/2023 6:58 AM [facility] Chloride 110(H) 98 - 107 mmol/L 09/26/2023 6:58 AM [facility] CO2 23 22 - 29 mmol/L 09/26/2023 6:58 AM [facility] Glucose 94 70 - 115 mg/dL 09/26/2023 6:58 AM [facility] Albumin 3.3(L) 3.4 - 5.0 g/dL 09/26/2023 6:58 AM [facility] Calcium 9.7 8.4 - 10.2 mg/dL 09/26/2023 6:58 AM [facility] Phosphorus 2.9 2.9 - 5.1 mg/dL 09/26/2023 6:58 AM [facility] Anion Gap 7 6 - 16 09/26/2023 6:58 AM [facility] BUN/Creatinine Ratio 15 7 - 23 09/26/2023 6:58 AM [facility] Osmolality Calculated 290 275 - 295 mOsm/kg 09/26/2023 6:58 AM [facility] eGFR by CKD-EPI 75(L) >=90 mL/min/1.7 3 m2 09/26/2023 6:58 AM [facility] Blood BLOOD SPECIMEN / Unknown Lab Venipuncture / Unknown 09/26/2023 6:11 AM CDT 09/26/2023 6:25 AM CDT Imer Patterson MD LAB - CHEMISTRY [facility] [address] [place] [address], [facility] [phone] from Last 3 Months or Most Recently [...] 1:05 PM 03/12/2014 2:13 PM Care Teams Bronc Buster Relationship Specialty Start Date End Date Shadi Molina MD [address] [place] [address] PCP - General Family Medicine 12/30/21 Lynette Henry, RN Sterilizer Machine Operator 02/18/14 Raul Jacobo MD Cardiovascular Disease 12/10/19 [place] [address] [place] [address] Cardiovascular Disease 10/05/23
--- OUTSIDE RECORDS SUMMARY | 2024-07-24 13:36 | XMS_ITS | Encounter Summary ---
Author Organization [facility] Address [address] [facility] [place] [address] Care Team Providers Care [employer] Name Role Phone Joanne Louis MD Primary Care Provider [phone] Lynette Henry RN Unavailable [phone] David Dior MD Primary Care Provider [phone] Raul Jacobo MD Unavailable Unavailable Shadi Molina MD Primary Care Provider Cresencio Cisse MD Unavailable [phone] Encounter Details Date Type Department Care Team (Late st Contact Info) Description 06/20/[address] [facility] Medical [address], [address] [place], [place] [id number] Raul Jacobo MD Social History Tobacco Use Types Packs/Day Years Used Date Smoking Tobacco: Never Smokeless Tobacco: Never Alcohol Use Standard Drinks/Week Comments No 0 (1 standard drink = 0.6 oz pur e alcohol) Sex and Gender Information Value Date Recorded Sex Assigned at Not on file Gender Identity Not on file Sexual Orientation Not on file documented as of this encounter Functional Status Functional Status Response Date of Assess ment Is person deaf or have serious hearing difficult y? No 05/12/2014 Is person blind or have serious difficulty seein g? No 05/12/2014 Does person have serious dif ficulty walking/climbing stairs? No 05/12/2014 Does person have difficulty dressing/bathing? No 05/12/2014 Does person have difficulty doing errands alone? No 05/12/2014 Cognitive Status Response Date of Assessm ent Does person have difficulty concentrating/remembering/making decisions? No 05/12/2014 documented as of this encounter Plan of Treatment Upcoming Encounters Date Type Department Care Team (Late st Contact Info) Description 10/23/2024 11:10 AM CDT Office Visit [facility] Health Heart & Vascular Care [address] [facility] [address] [place], [place] [id number] [place] [address] [phone] documented as of this encounter Visit Diagnoses Not on filedocumented in this encounter Care Teams [employer] Relationship Specialty Start Date End Date Joanne Louis MD [address] [place] [phone] PCP - General Family Medicine 02/18/14 10/01/18 David Dior MD [address] [place] [address] PCP - General Family Medicine 10/02/18 12/29/21 Shadi Molina MD [address] [place] [phone] PCP - General Family Medicine 12/30/21 Lynette Henry, RN Wind Development Director 02/18/14 Raul Jacobo MD [address] [place] [address] Cardiovascular Disease 12/10/19 [place] [address] [id number] Cardiovascular Disease 10/05/23 documented as of this encounter
--- OUTSIDE RECORDS SUMMARY | 2024-07-24 13:36 | XMS_ITS | Patient Health Summary ---
Author Organization [facility] Address [address] [place] [address] Care Team Providers Care Tube Builder Name Role Phone Lynette Henry RN Unavailable Phani Townsend MD Unavailable Unavailable Shadi Molina MD Primary Care Provider Cresencio Cisse MD Unavailable [phone] Note from [facility],non-owned Affiliates and Associated Physician Practices is amultiple site organization consisting of ambulatory clinics and hospital sitesin [place], [place], [place] and [place]. This disclosure is being madepursuant to the Care Everywhere program and may not contain all information available regarding this patient. Last updated 18.[facility] Allergies No known active allergies Medications * Be aware that medications may not be up to date on this document. Alwaysverify current medications with the patient. * aspirin (ASPIRIN) 81 MG chew tablet(Started 03/11/2014) Take 1 Tab by mouth once daily. * multivitamin daily (THERAGRAN) tablet(Started 03/11/2014) Take 1 Tab by mouth daily with breakfast. * allopurinol (ZYLOPRIM) 300 MG tablet(Started 07/23/2014) 1 (one) tablet once daily * oxybutynin CR 24hr (DITROPAN-XL) 5 MG tablet(Started 12/18/2017) TAKE 1 TABLET DAILY 11 refills remaining * Vitamin D, Cholecalciferol, 1000 units Take 1 (one) tablet by mouth once daily * simvastatin (Zocor) 20 MG tablet(Started 07/05/2023) Combined both atorvastatin and simvastatin in the toshia bottle and takes whatever comes out. * dulaglutide (Trulicity) 0.75 MG/0.5ML injection Inject 0.75 (three-quarters) mg subcutaneously every 7 days * empagliflozin (Jardiance) 10 MG tablet(Started 10/21/2023) Take 1 (one) tablet by mouth once daily 3 refills by 10/20/2024 * empagliflozin (Jardiance) 10 MG tablet(Started 10/24/2023) Take 1 (one) tablet by mouth once daily 3 refills by 10/23/2024 * carvedilol (Coreg) 25 MG tablet(Started 06/29/2024) Take 1 (one) tablet by mouth 2 times daily with morning and evening meal 3 refills by 06/29/2025 * furosemide (Lasix) 20 MG tablet(Started 07/13/2024) Take 1 (one) tablet by mouth once daily 3 refills by 07/13/2025 * losartan (Cozaar) 50 MG tablet(Started 07/12/2024) Take 1 (one) tablet by mouth once daily 3 refills by 07/12/2025 Ended Medications* carvedilol (Coreg) 25 MG tablet(Started 07/06/2023) (Discontinued) Take 1 (one) tablet by mouth 2 times daily with morning and evening meal 3 refills by 07/05/2024 * furosemide (Lasix) 20 MG tablet(Started 08/23/2023)(Discontinued) Take 1 (one) tablet by mouth once daily 3 refills by 08/22/2024 * sacubitril-valsartan (Entresto) 24-26 MG tablet(Started 10/20/2023) (Discontinued) Take 1 (one) tablet by mouth 2 times daily 3 refills by 10/19/2024 * losartan (Cozaar) 50 MG tablet(Discontinued) Take 1 (one) tablet by mouth once daily Active Problems Problem Noted Date Diagnosed Date S/p TAVR (transcatheter aort ic valve replacement), bioprosthetic 09/25/2023 Severe aortic stenosis 09/06/2023 Moderate bioprosthetic aortic valve stenosis. Aortic insufficiency, severe , bioprosthetic AVR in 2013.Gradient 43/22 mmHg in 12/202109/18/2015 Right nephrectomy for renal cell carcinoma 09/23 Nonischemic cardiomyopathy, EF 30% > 50% > derrick l 04/21/2014 DOREEN (obstructive sleep apnea) 04/21/2014 Benign hypertension 10/12/2013 Resolved Problems Problem Noted Date Diagnosed Date [...] and heating? Not hard at all 09/26/2023 [facility] - Occupational Stress [...] place to sleep or slept in a prison (including now)? No 09/26/2023 Sex and Gender Information Value Date Recorded Sex Assigned at Not on file Gender Identity Not on file Sexual Orientation Not on file Last Filed Vital Signs Vital Sign Reading Time Taken Comments Blood Pressure 116/69 04/23/2024 11:09 AM [employer] Pulse 76 04/23/2024 11:09 AM [employer] Temperature 36.5 C (97.7 F) 09/26/2023 7:39 AM CDT Respiratory Rate 20 09/26/2023 7:39 AM CDT Oxygen Saturation 100% 09/26/2023 9:25 AM CDT Inhaled Oxygen Concentration 21% 11:35 PM CDT Weight 167.9 kg (370 lb 3.2 oz) 024 11:09 AM [employer] Height 175.3 cm (5' 9.02 ) 04/23/2024 1 1:09 AM [employer] Body Mass Index 54.64 04/23/2024 11:09 AM [employer] Medical Devices Implanted Type Area Sales Correspondent Device Identifier Shelf Expiration Date Model / Serial / Lot Vascular Graft Implanted:Qty: 1 on 03/07/2014 by Hammad Reno MD at [facility] Graft Aorta Maquet 07/29/2017 [id number] / / Vlv Magna Ease All - [id number] Implanted:Qty: 1 on 03/07/2014 by Hammad Reno MD at [facility] N/A: Heart [employer] 10/05/2017 [id number] / [id number] / Cath Pace Eltrd Biplr Dist Tip Balln [facility] - [id number] Implanted:Qty: 1 on 09/25/2023 by Toshia Patterson MD at [facility] [employer] [id number] 02/25/2025 [id number] / [id number] / [id number] Valve Aor Evolut Fx 29mm - [id number] Implanted:Qty: 1 on 09/25/2023 by Toshia Patterson MD at [facility] [employer] [id number] 05/31/2025 [id number] X- 29 / [id number] / [id number] Vlv Aor 26mm Peter 3 Cmndr Edwrd - [id number] Implanted:Qty: 1 on 09/25/2023 by Toshia Patterson MD at [facility] [employer] [id number] 06/25/2026 [id number] / [id number] / [id number] Procedures * CARDIAC EKG ORDER(Performed 09/27/2023) * PREPARE RBC LEUKOREDUCED UNIT(Performed 09/27/2023) Performed for Severe aortic stenosis * ECHO COMPLETE W CONTRAST(Performed 09/26/2023) Performed for S/p TAVR (transcatheter aortic valve replacement), bioprosthetic * CBC W AUTO DIFFERENTIAL(Performed 09/26/2023) * RENAL FUNCTION PANEL(Performed 09/26/2023) * MAGNESIUM BLOOD(Performed 09/26/2023) * EKG 12-LEAD(Performed 09/26/2023) Performed for S/p TAVR (transcatheter aortic valve replacement), bioprosthetic * EKG 12-LEAD(Performed 09/26/2023) Performed for S/p TAVR (transcatheter aortic valve replacement), bioprosthetic * GLUCOSE - POINT OF CARE(Performed 09/25/2023) * EKG 12-LEAD(Performed 09/25/2023) Performed for S/p TAVR (transcatheter aortic valve replacement), bioprosthetic * CCL TRANSCATH AORTIC VALVE REPLACEMENT(Performed 09/25/2023) Performed for Severe aortic stenosis * ECHO LIMITED TAVR(Performed 09/25/2023) Performed for Severe aortic stenosis * BLOOD TYPE VERIFICATION(Performed 09/25/2023) * TYPE + SCREEN PANEL(Performed 09/25/2023) Performed for Pre-op evaluation * GLUCOSE - POINT OF CARE(Performed 09/25/2023) * APHERESIS/TRANSFUSION ORDER(Performed 09/19/2023) * XR CHEST 2VW(Performed 09/15/2023) Performed for Pre-op evaluation, Severe aortic stenosis, Shortness of breath * TYPE + SCREEN PANEL(Performed 09/15/2023) Performed for Pre-op evaluation, Severe aortic stenosis, Shortness of breath * CBC W AUTO DIFFERENTIAL(Performed 09/15/2023) Performed for Pre-op evaluation, Severe aortic stenosis, Shortness of breath * PT PTT PANEL(Performed 09/15/2023) Performed for Pre-op evaluation, Severe aortic stenosis, Shortness of breath * COMPREHENSIVE METABOLIC PANEL(Performed 09/15/2023) Performed for Pre-op evaluation, Severe aortic stenosis, Shortness of breath * MRI ABDOMEN WWO CONTRAST(Performed 08/02/2023) Performed for Other specified disorders of kidney and ureter * EKG 12-LEAD(Performed 07/19/2023) Performed for Pre-op evaluation, Aortic valve stenosis, etiology of cardiac valve disease unspecified * CARDIAC PROCEDURE ORDER(Performed 07/17/2023) * CARDIAC PROCEDURE ORDER(Performed 07/12/2023) * CT ANGIO TAVR NECK CHEST ABD PEL(Performed 07/11/2023) Performed for Severe aortic stenosis, Pre-op evaluation, Mitral valve insufficiency, unspecified etiology * CARDIAC PROCEDURE ORDER(Performed 06/27/2023) * CCL INTRA PROCEDURE DARÍO(Performed 06/26/2023) * CCL LEFT AND RIGHT HEART CATH(Performed 06/26/2023) * ECHO DARÍO COMPLETE(Performed 06/26/2023) Performed for Nonischemic cardiomyopathy, EF 30% > 50% > normal * GLUCOSE - POINT OF CARE(Performed 06/26/2023) * CBC W AUTO DIFFERENTIAL(Performed 06/14/2023) Performed for Pre-op testing * BASIC METABOLIC PANEL (CALCIUM TOTAL)(Performed 06/14/2023) Performed for Pre-op testing * ECHO COMPLETE(Performed 06/09/2023) Performed for Nonrheumatic aortic (valve) insufficiency, Nonischemic cardiomyopathy (HCC), DOREEN (obstructive sleep apnea), Renal cell carcinoma of right kidney (HCC), Nonrheumatic aortic (valve) stenosis, Renal cell carcinoma, unspecified laterality (HCC) * ECHO COMPLETE(Performed 02/10/2023) Performed for Aortic insufficiency, severe, bioprosthetic AVR in 2013.Gradient 43/22 mmHg in 12/2021 * ECHOCARDIOGRAM 2D WITH DOPPLER(Performed 01/21/2022) Performed for Moderate bioprosthetic aortic valve stenosis. * ECHOCARDIOGRAM 2D WITH DOPPLER(Performed 12/29/2020) Performed for Nonischemic cardiomyopathy, EF 30% > 50%, Aortic insufficiency, severe, bioprosthetic AVR in 2013 * ECHOCARDIOGRAM 2D WITH DOPPLER(Performed 08/12/2015) Performed for Nonischemic cardiomyopathy, EF 30% > 45% * ECHOCARDIOGRAM 2D WITH DOPPLER(Performed 09/10/2014) Performed for Nonischemic cardiomyopathy, EF 30% * APHERESIS/TRANSFUSION ORDER(Performed 05/18/2014) * GLUCOSE - POINT OF CARE(Performed 05/14/2014) * GLUCOSE - POINT OF CARE(Performed 05/13/2014) * BASIC METABOLIC PANEL (CALCIUM TOTAL)(Performed 05/13/2014) * CBC W AUTO DIFFERENTIAL(Performed 05/13/2014) * ROBOTIC ASSISTED NEPHRECTOMY(Performed 05/12/2014) Performed for Renal mass * GLUCOSE - POINT OF CARE(Performed 05/12/2014) * PATHOLOGY TISSUE EXAM (STL)(Performed 05/12/2014) * GLUCOSE - POINT OF CARE(Performed 05/12/2014) * CROSSMATCH RBC LEUKOREDUCED(Performed 05/12/2014) * CROSSMATCH RBC LEUKOREDUCED(Performed 05/12/2014) * TYPE + SCREEN PANEL(Performed 05/12/2014) * XR CHEST 2VW(Performed 04/28/2014) Performed for Preoperative examination * PT PTT PANEL(Performed 04/28/2014) Performed for Preoperative examination * URINALYSIS REFLEX TO MICROSCOPIC NO CULTURE(Performed 04/28/2014) Performed for Preoperative examination * COMPREHENSIVE METABOLIC PANEL(Performed 04/28/2014) Performed for Preoperative examination * CBC W AUTO DIFFERENTIAL(Performed 04/28/2014) Performed for Preoperative examination * CULTURE URINE(Performed 04/28/2014) Performed for Preoperative examination * APHERESIS/TRANSFUSION ORDER(Performed 03/14/2014) * CARDIAC RHYTHM STRIP ORDER(Performed 03/14/2014) * GLUCOSE - POINT OF CARE(Performed 03/11/2014) * GLUCOSE - POINT OF CARE(Performed 03/11/2014) * GLUCOSE - POINT OF CARE(Performed 03/11/2014) * BASIC METABOLIC PANEL (CALCIUM TOTAL)(Performed 03/11/2014) * CBC W AUTO DIFFERENTIAL(Performed 03/11/2014) * GLUCOSE - POINT OF CARE(Performed 03/10/2014) * GLUCOSE - POINT OF CARE(Performed 03/10/2014) * XR CHEST 1VW(Performed 03/10/2014) Performed for S/P AVR (aortic valve replacement) and aortoplasty * GLUCOSE - POINT OF CARE(Performed 03/10/2014) * XR CHEST 1VW PORTABLE(Performed 03/10/2014) Performed for S/P AVR (aortic valve replacement) and aortoplasty * MAGNESIUM BLOOD(Performed 03/10/2014) * HEPATIC FUNCTION PANEL(Performed 03/10/2014) * BASIC METABOLIC PANEL (CALCIUM TOTAL)(Performed 03/10/2014) * CBC W AUTO DIFFERENTIAL(Performed 03/10/2014) * GLUCOSE - POINT OF CARE(Performed 03/09/2014) * GLUCOSE - POINT OF CARE(Performed 03/09/2014) * GLUCOSE - POINT OF CARE(Performed 03/09/2014) * GLUCOSE - POINT OF CARE(Performed 03/09/2014) * GLUCOSE - POINT OF CARE(Performed 03/09/2014) * COOXIMETRY MIXED VENOUS(Performed 03/09/2014) * GLUCOSE - POINT OF CARE(Performed 03/09/2014) * PT-INR(Performed 03/09/2014) * COMPREHENSIVE METABOLIC PANEL(Performed 03/09/2014) * CBC W AUTO DIFFERENTIAL(Performed 03/09/2014) * GLUCOSE - POINT OF CARE(Performed 03/09/2014) * GLUCOSE - POINT OF CARE(Performed 03/08/2014) * GLUCOSE - POINT OF CARE(Performed 03/08/2014) * GLUCOSE - POINT OF CARE(Performed 03/08/2014) * GLUCOSE - POINT OF CARE(Performed 03/08/2014) * GLUCOSE - POINT OF CARE(Performed 03/08/2014) * GLUCOSE - POINT OF CARE(Performed 03/08/2014) * GLUCOSE - POINT OF CARE(Performed 03/08/2014) * GLUCOSE - POINT OF CARE(Performed 03/08/2014) * GLUCOSE - POINT OF CARE(Performed 03/08/2014) * COOXIMETRY MIXED VENOUS(Performed 03/08/2014) * GLUCOSE - POINT OF CARE(Performed 03/08/2014) * XR CHEST 1VW PORTABLE(Performed 03/08/2014) Performed for S/P AVR (aortic valve replacement) and aortoplasty * GLUCOSE - POINT OF CARE(Performed 03/08/2014) * GLUCOSE - POINT OF CARE(Performed 03/08/2014) * GLUCOSE - POINT OF CARE(Performed 03/08/2014) * PT-INR(Performed 03/08/2014) * CBC W/O DIFFERENTIAL(Performed 03/08/2014) * BASIC METABOLIC PANEL (CALCIUM TOTAL)(Performed 03/08/2014) * MAGNESIUM BLOOD(Performed 03/08/2014) * GLUCOSE - POINT OF CARE(Performed 03/08/2014) * GLUCOSE - POINT OF CARE(Performed 03/08/2014) * GLUCOSE - POINT OF CARE(Performed 03/07/2014) * GLUCOSE - POINT OF CARE(Performed 03/07/2014) * GLUCOSE - POINT OF CARE(Performed 03/07/2014) * GLUCOSE - POINT OF CARE(Performed 03/07/2014) * BLOOD GASES ART (ISTAT)(Performed 03/07/2014) * GLUCOSE - POINT OF CARE(Performed 03/07/2014) * CULTURE VRE(Performed 03/07/2014) * GLUCOSE - POINT OF CARE(Performed 03/07/2014) * CULTURE MRSA(Performed 03/07/2014) * GLUCOSE - POINT OF CARE(Performed 03/07/2014) * COOXIMETRY MIXED VENOUS(Performed 03/07/2014) * XR CHEST 1VW PORTABLE(Performed 03/07/2014) Performed for S/P AVR (aortic valve replacement) and aortoplasty * BASIC METABOLIC PANEL (CALCIUM TOTAL)(Performed 03/07/2014) * PLATELET COUNT AUTO(Performed 03/07/2014) * HGB HCT PANEL(Performed 03/07/2014) * PT-INR(Performed 03/07/2014) * BLOOD GASES ART + LYTES GLU CA+ HH (ISTAT)(Performed 03/07/2014) * COAGULATION PANEL W D-DIMER(Performed 03/07/2014) * BLOOD GASES ART + LYTES GLU CA+ HH (ISTAT)(Performed 03/07/2014) * ACT - POINT OF CARE(Performed 03/07/2014) * BLOOD GASES ART + LYTES GLU CA+ HH (ISTAT)(Performed 03/07/2014) * ACT - POINT OF CARE(Performed 03/07/2014) * BLOOD GASES ART + LYTES GLU CA+ HH (ISTAT)(Performed 03/07/2014) * COOXIMETRY ARTERIAL - POCT (IP)(Performed 03/07/2014) * ACT - POINT OF CARE(Performed 03/07/2014) * PATHOLOGY TISSUE EXAM (STL)(Performed 03/07/2014) Performed for S/P AVR (aortic valve replacement) and aortoplasty * ACT - POINT OF CARE(Performed 03/07/2014) * BLOOD GASES ART + LYTES GLU CA+ HH (ISTAT)(Performed 03/07/2014) * COOXIMETRY ARTERIAL - POCT (IP)(Performed 03/07/2014) * ACT - POINT OF CARE(Performed 03/07/2014) * TRANSESOPHAGEAL ECHOCARDIOGRAM (DARÍO)(Performed 03/07/2014) Performed for AI (aortic insufficiency) * REPLACEMENT AORTIC VALVE(Performed 03/07/2014) Performed for AI (aortic insufficiency) * GLUCOSE - POINT OF CARE(Performed 03/07/2014) * CULTURE MRSA(Performed 03/07/2014) * CROSSMATCH RBC LEUKOREDUCED(Performed 03/07/2014) Performed for Pre-op examination * CROSSMATCH RBC LEUKOREDUCED(Performed 03/07/2014) Performed for Pre-op examination * PREPARE PLATELET PHERESIS UNIT(S)(Performed 03/07/2014) Performed for Pre-op examination * TYPE + SCREEN PANEL(Performed 03/07/2014) Performed for Pre-op examination * URINE MICROSCOPIC ONLY(Performed 03/07/2014) Performed for Pre-op examination * PT PTT PANEL(Performed 03/07/2014) * URINALYSIS REFLEX TO MICROSCOPIC NO CULTURE(Performed 03/07/2014) Performed for Pre-op examination * OBTAIN CONSENT FOR TRANSFUSION(Performed 03/07/2014) Performed for Pre-op examination * BASIC METABOLIC PANEL (CALCIUM TOTAL)(Performed 03/03/2014) Performed for Other abnormal blood chemistry * BASIC METABOLIC PANEL (CALCIUM TOTAL)(Performed 02/26/2014) Performed for Other abnormal blood chemistry * CBC W AUTO DIFFERENTIAL(Performed 02/26/2014) Performed for Other abnormal blood chemistry * CARDIAC RHYTHM STRIP ORDER(Performed 02/25/2014) * CARDIAC PROCEDURE ORDER(Performed 02/25/2014) * APHERESIS/TRANSFUSION ORDER(Performed 02/25/2014) * BASIC METABOLIC PANEL (CALCIUM TOTAL)(Performed 02/22/2014) * CBC W AUTO DIFFERENTIAL(Performed 02/22/2014) * GLUCOSE - POINT OF CARE(Performed 02/21/2014) * TYPE + SCREEN PANEL(Performed 02/21/2014) * GLUCOSE - POINT OF CARE(Performed 02/21/2014) * GLUCOSE - POINT OF CARE(Performed 02/21/2014) * GLUCOSE - POINT OF CARE(Performed 02/20/2014) * GLUCOSE - POINT OF CARE(Performed 02/20/2014) * MRI ABDOMEN WWO CONTRAST(Performed 02/20/2014) Performed for Hemoptysis, Renal mass, right * GLUCOSE - POINT OF CARE(Performed 02/20/2014) * GLUCOSE - POINT OF CARE(Performed 02/20/2014) * CBC W AUTO DIFFERENTIAL(Performed 02/20/2014) * DNA ANTIBODY DOUBLE STRANDED(Performed 02/20/2014) * RHEUMATOID FACTOR BLOOD QUANTITATIVE(Performed 02/20/2014) * STANTON BLOOD SCREEN W/REFLEX TITER(Performed 02/20/2014) * BASIC METABOLIC PANEL (CALCIUM TOTAL)(Performed 02/20/2014) * BLOOD TYPE VERIFICATION(Performed 02/20/2014) * GLUCOSE - POINT OF CARE(Performed 02/19/2014) * ECHOCARDIOGRAM TRANSESOPHAGEAL(Performed 02/19/2014) Performed for Shortness of breath * GLUCOSE - POINT OF CARE(Performed 02/19/2014) * XR CHEST 1VW PORTABLE(Performed 02/19/2014) Performed for Shortness of breath, Diffuse pulmonary alveolar hemorrhage, Elevated troponin * GLUCOSE - POINT OF CARE(Performed 02/19/2014) * HEMOGLOBIN A1C(Performed 02/19/2014) * CBC W AUTO DIFFERENTIAL(Performed 02/19/2014) * BASIC METABOLIC PANEL (CALCIUM TOTAL)(Performed 02/19/2014) * ECHOCARDIOGRAM 2D WITH DOPPLER(Performed 02/18/2014) Performed for Shortness of breath, Diffuse pulmonary alveolar hemorrhage, Elevated troponin * ED CRITICAL CARE(Performed 02/18/2014) Performed for Diffuse pulmonary alveolar hemorrhage * TROPONIN I(Performed 02/18/2014) * CARDIAC CATH CONSULT(Performed 02/18/2014) * TROPONIN I(Performed 02/18/2014) * CT ANGIO CHEST PULM EMBOLISM(Performed 02/18/2014) Performed for Shortness of breath * XR CHEST 1VW PORTABLE(Performed 02/18/2014) Performed for Shortness of breath * B-TYPE NATRIURETIC PEPTIDE(Performed 02/18/2014) * COMPREHENSIVE METABOLIC PANEL(Performed 02/18/2014) * CBC W AUTO DIFFERENTIAL(Performed 02/18/2014) * TROPONIN I(Performed 02/18/2014) * ISTAT CG4+ ART(Performed 02/18/2014) * EKG 12-LEAD(Performed 02/18/2014) Performed for Shortness of breath * CULTURE URINE(Performed 12/03/2013) * CULTURE URINE(Performed 11/30/2013) * TRANSFUSE RED BLOOD CELL LEUKOREDUCED UNIT(S) Performed for Severe aortic stenosis * TRANSFUSE RED BLOOD CELL LEUKOREDUCED UNIT(S) Performed for Severe aortic stenosis * TRANSFUSE RED BLOOD CELL LEUKOREDUCED UNIT(S) Performed for Severe aortic stenosis * TRANSFUSE RED BLOOD CELL LEUKOREDUCED UNIT(S) Performed for Severe aortic stenosis Results * CARDIAC EKG ORDER (09/27/2023 12:22 PM CDT) Narrative 09/27/2023 12:22 PM CDT Ordered by an unspecified provider. Scanned Document CARDIAC SERVICES ORD ERABLES * PREPARE (CROSSMATCH) RBC UNIT(S), 4 Units (09/27/2023 1:17 AM CDT) Unit Description AS1 LR PRBC [facility] Unit ABO A [facility] Unit POS [facility] Product Number [id number] [facility] Unit Donor # [id number] [facility] Unit Status released [facility] Product Code [id number] [facility] Blood Type Barcode 6200 [facility] Expiration Date [id number] S BLOOD [facility]ANK [facility] Unit Description AS1 LR PR[address] [facility] Unit ABO A [facility] Unit POS [facility] Product Number [id number] [facility] Unit Donor # [id number] [facility] Unit Status released [facility] Product Code [id number] [facility] Blood Type Barcode 6200 [facility] Expiration Date S BLOOD BANK LAB Unit Description AS1 LR PRBC [facility] Unit ABO A [facility] Unit POS [facility] Product Number R02 [facility] Unit Donor # [id number] [facility] Unit Status released [facility] Product Code [id number] [facility] Blood Type Barcode 6200 [facility] Expiration Date S BLOOD BANK LAB Unit Description AS1 LR PRBC [facility] Unit ABO A [facility] Unit Rh POS [facility] Product Number R02 [facility] Unit Donor # [id number] [facility] Unit Status released [facility] Product Code [id number] [facility] Blood Type Barcode 6200 [facility] Expiration Date S BLOOD BANK LAB Blood Bank BLOOD SPECIMEN / Unknown 09/25/2023 8:52 AM CDT Jasmine Winslow [employer] [facility] - BLOOD B ANK ORDERABLES [facility] [address] [place] [address], [facility] [phone] * ECHO COMPLETE W CONTRAST (09/26/2023 10:19 AM CDT) Only the most recent of4 resultswithin the time period is included. BSA 2.1666572 m2 [facility] CV FUJ I PACS LV biplane EF 61 54 - 74 % [facility] CV FUJI PACS LV A2C EF 59 52 - 76 % SSM CV FUJ I PACS LV A4C EF 62 46 - 78 % SSM CV FUJ I PACS LV stroke vol BP 101.9 mL SSM CV FUJI PACS LV stroke vol BP index 34.1 mL/m2 SSM CV FUJI PACS LVOT stroke vol 123.47 mL SSM CV FUJI PACS LVOT stroke vol index 41.27 mL/m2 SSM CV FUJI PACS LV stroke vol 2D teich 85.087 ml SSM CV FUJI PACS LV Stroke Index 2D Teich 28.44 mL/m2 SSM CV FUJI PACS LV stroke vol index A4C MOD 114.056 ml/m2 SSM CV FUJI PACS LVIDd 5.40 3.8 - 5.2 cm SSM CV FUJI PACS LVIDs 3.64 2.2 - 3.5 cm SSM CV FUJI PACS IVSd 2D 1.326 0.6 - 0.9 cm SSM CV FUJI PACS LVPWd 1.33 0.6 - 0.9 cm SSM CV FUJI PACS Fractional Shortening 2D 32 28 - 44 % SSM CV FUJI PACS LV ESV BP 65.289 14 - 42 mL SSM CV FUJI PACS LV ESV index BP 21.8 8 - 24 mL/m2 SSM CV FUJI PACS LV ESV A2C 69.91 10 - 54 mL SSM CV FUJI PACS LV ESV index A2C 23.37 6 - 30 mL/m2 SSM CV FUJI PACS LV EDV BP 167.178 46 - 106 mL SSM CV FUJI PACS LV ESV A4C 57.153 12 - 60 mL SSM CV FUJI PACS LV ESV index A4C 19.10 7 - 35 mL/m2 SSM CV FUJI PACS LV EDV index BP 55.9 29 - 61 mL/m2 SSM CV FUJI PACS LV EDV A2C 140.138 41 - 133 mL SSM CV FUJI PACS LV EDV index A2C 46.84 26 - 74 mL/m2 SSM CV FUJI PACS LV EDV A4C 183.965 mL SSM CV FU JI PACS LV ESV 2D 55.98 14 - 42 mL SSM CV FUJI PACS LV EDV index A4C 61.49 30 - 82 mL/m2 SSM CV FUJI PACS LV ESV index 2D 18.71 8 - 24 mL/m2 SSM CV FUJI PACS LV EDV 2D 141.066 46 - 106 mL SSM CV FUJI PACS LV EDV index 2D 47.15 29 - 61 mL/m2 SSM CV FUJI PACS LVOT diam 2.2 cm SSM CV FUJ I PACS LVOT area 3.85 cm2 SSM CV FUJ I PACS LV RWT 0.492 SSM CV FUJ I PACS LV Goodman A2C 7.886 cm SSM CV F UJI PACS LV Goodman A4C 8.572 cm SSM CV F UJI PACS IVS/LVPW 1 SSM CV FUJ I PACS LV mass 2D 303.706 66 - 150 g SSM CV FUJI PACS LV mass index 2D 101.52 44 - 88 g/m2 SSM CV FUJI PACS MV E pk kira 82.827 cm/s SSM CV F UJI PACS MV avg E/e' ratio 13.78 SS M CV FUJI PACS MV A pk kira 73.635 cm/s SSM CV F UJI PACS MV E A ratio 1.13 SSM CV FUJI PACS MV E' lateral kira 7.712 cm/s SS M CV FUJI PACS MV DT 266 ms SSM CV FUJ I PACS MV E' septal kira 4.926 cm/s SSM CV FUJI PACS MV E/e' septal 16.816 SSM C V FUJI PACS MV E/e' lateral 10.74 SSM CV FUJI PACS TR pk kira 254.1 cm/s SSM CV FUJ I PACS LVOT pk kira 1.51 m/s SSM CV F UJI PACS LVOT mn kira 1.13 m/s SSM CV F UJI PACS LVOT mn grad 5.7 mmHg SSM CV FUJI PACS LVOT Cardiac Output 26.214 l/min SSM CV FUJI PACS LVOT Cardiac Index 8.76 l/min/m2 SSM CV FUJI PACS LA size 5.033 2.7 - 3.8 cm SSM CV FUJI PACS RVIDd 3.8 cm SSM CV [facility] I PACS RVOT VTI 17.799 cm SSM CV [facility] I PACS TV S' kira 8.364 cm/s SSM CV [facility] I PACS RVOT pk kira 0.78 m/s SSM CV F UJI PACS AV mn grad 19 mmHg SSM CV FU JI PACS AV pk grad 31 mmHg SSM CV FU JI PACS AV mn kira 2.06 m/s SSM CV [facility] I PACS AV pk kira 2.80 m/s SSM CV [facility] I PACS AV VTI 55.325 cm SSM CV [facility] I PACS LVOT pk grad 9.173 mmHg SSM CV FUJI PACS LVOT VTI 32.045 cm SSM CV [facility] [facility] PACS AV area cont VTI 2.2 cm2 SSM CV FUJI PACS AV area pk kira 2.1 cm2 SSM C V FUJI PACS AV Doppler kira index pk kira 0.541 SSM CV FUJI PACS Dimensionless Index 0.579 SSM CV FUJI PACS MV mn grad 1 mmHg SSM CV FU JI PACS MV pk grad 3 mmHg SSM CV FU JI PACS MV mn kira 0.51 m/s SSM CV FUJ I PACS MV pk kira 84.069 cm/s SSM CV FUJ I PACS MV area cont eq 5.11 cm2 SSM CV FUJI PACS MV VTI 24.177 cm SSM CV FUJ I PACS MV decel slope 311.669 cm/s2 SSM C V FUJI PACS TR VTI 73.8 cm SSM CV FUJ I PACS TR pk grad 26 mmHg SSM CV FU JI PACS RVOT mn grad 1 mmHg SSM CV FUJI PACS RVOT pk grad 2 mmHg SSM CV FUJI PACS PV mn grad 2 mmHg SSM CV FU JI PACS PV pk kira 103.289 cm/s SSM CV FUJ I PACS PV pk grad 4 mmHg SSM CV FU JI PACS PV VTI 21.804 cm SSM CV FUJ I PACS PV mn kira 68.818 cm/s SSM CV FUJ I PACS Ascending aorta 3.63 cm SSM CV FUJI PACS [id number] 6.723 cm SSM CV FUJ I PACS [id number] 6.268 cm SSM CV FUJ I PACS Prox Asc Ao Diameter Index 1.214 cm SSM CV FUJI PACS LVIDs index 1.22 1.3 - 2.1 cm/m2 SSM CV FUJI PACS LV LVIDd index 1.80 2.3 - 3.1 cm/m2 SSM CV FUJI PACS Sinus of Valsalva 3.60 cm SS M CV FUJI PACS Sinus of valsalva index 1.20 cm/m2 SSM CV FUJI PACS Anatomical Region Laterality Modality Ultrasound Narrative 09/26/2023 3:28 PM CDT Left Ventricle: Left ventricle size is upper limits of normal. Mildly increased wall thickness. Normal systolic function with a visually estimated EF of 60 - 65%. Normal wall motion. Grade II diastolic dysfunction with elevated left atrial pressure. Aortic Valve: Not well visualized. 26 mm S3 appropriately positioned transcatheter bioprosthetic valve that is well-seated. No regurgitation. No paravalvular regurgitation. AV mean gradient is 19 mmHg. AV peak velocity is 2.80 m/s. AV area by continuity VTI is 2.2 cm2. Tricuspid Valve: Mild regurgitation. Unable to estimate the pulmonary artery systolic pressure due to incomplete tricuspid regurgitation envelope. Pericardium: No pericardial effusion. Consider DARÍO to better image the aortic valve. Left Ventricle Left ventricle size is upper limits of normal. Mildly increased wall thickness. Normal systolic function with a visually estimated EF of 60 - 65%. Normal wall motion. Grade II diastolic dysfunction with elevated left atrial pressure. Right Ventricle Right ventricle size is normal. Normal systolic function. Left Atrium Left atrium is moderately dilated. Right Atrium Right atrium is moderately dilated. IVC/SVC IVC was not assessed due to poor image quality. Mitral Valve Valve structure is normal. No restricted motion. Mild regurgitation with a centrally directed jet. No stenosis. Tricuspid Valve Valve structure is normal. No restricted motion. Mild regurgitation. Unable to estimate the pulmonary artery systolic pressure due to incomplete tricuspid regurgitation envelope. No stenosis. Aortic Valve Not well visualized. 26 mm S3 appropriately positioned transcatheter bioprosthetic valve that is well-seated. No regurgitation. No paravalvular regurgitation. AV mean gradient is 19 mmHg. AV peak velocity is 2.80 m/s. AV area by continuity VTI is 2.2 cm2. Pulmonic Valve Valve structure is normal. No restricted motion. No regurgitation. No stenosis. Ascending Aorta Normal sized sinus of Valsalva (aortic root) and ascending aorta. Pericardium No pericardial effusion. Study Details Study quality was adequate. A complete color Doppler and spectral Doppler echocardiogram was performed. The apical, parasternal, subcostal and suprasternal views were obtained. Definity ultrasound enhancing agent used. Patient exhibited sinus rhythm. Technical difficulties due to patient's body habitus and patient positioning. Procedure Note Willie Freeman MD - 09/26/2023 Left Ventricle: Left ventricle size is upper limits of normal. Mildlyincreased wall thickness. Normal systolic function with a visuallyestimated EF of 60 - 65%. Normal wall motion. Grade II diastolicdysfunction with elevated left atrial pressure. Aortic Valve: Not well visualized. 26 mm S3 appropriately positionedtranscatheter bioprosthetic valve that is well-seated. No regurgitation.No paravalvular regurgitation. AV mean gradient is 19 mmHg. AV peakvelocity is 2.80 m/s. AV area by continuity VTI is 2.2 cm2. Tricuspid Valve: Mild regurgitation. Unable to estimate the pulmonaryartery systolic pressure due to incomplete tricuspid regurgitationenvelope. Pericardium: No pericardial effusion. Consider DARÍO to better image the aortic valve. Annie Fritz MD ECHO CUPID * (ABNORMAL) CBC W AUTO DIFFERENTIAL (09/26/2023 6:11 AM [facility]) Only the most recent of13 resultswithin the time period is included. [facility] WBC 7.6 4.0 - 10.7 x10E9/L 09/26/2023 6:41 AM [facility] RBC Count 3.88(L) 3.90 - 5.20 x10E12/L 09/26/2023 6:41 AM [facility] Hemoglobin 10.7(L) 11.9 - 15.8 g/dL 09/26/2023 6:41 AM [facility] Hematocrit 33.6(L) 34.8 - 46.1 % 09/26/2023 6:41 AM [facility] MCV 86.6 80.0 - 98.0 fL 09/26/2023 6:41 AM [facility] MCH 27.6 26.7 - 33.6 pg 09/26/2023 6:41 AM [facility] MCHC 31.8 31.7 - 36.3 g/dL 09/26/2023 6:41 AM [facility] RDW-CV 15.5(H) 11.3 - 14.8 % 09/26/2023 6:41 AM [facility] Platelet Count 158 150 - 420 x10E9/L 09/26/2023 6:41 AM [facility] MPV 10.4 7.8 - 11.4 fL 09/26/2023 6:41 AM [facility] Neutrophil % 70.1 41.0 - 74.0 % 09/26/2023 6:41 AM [facility] Lymphocyte % 21.7 17.0 - 47.0 % 09/26/2023 6:41 AM [facility] Monocyte % 6.3 3.0 - 11.0 % 09/26/2023 6:41 AM [facility] Eosinophil % 1.1 0.0 - 7.0 % 09/26/2023 6:41 AM [facility] Basophil % 0.5 0.0 - 1.6 % 09/26/2023 6:41 AM [facility] Immature Granulocytes % 0.3 0.0 - 1.0 % 09/26/2023 6:41 AM [facility] Neutrophil Absolute 5.30 1.60 - 7.50 x10E9/L 09/26/2023 6:41 AM [facility] Lymphocyte Absolute 1.64 1.00 - 4.40 x10E9/L 09/26/2023 6:41 AM [facility] Monocyte Absolute 0.48 0.15 - 1.00 x10E9/L 09/26/2023 6:41 AM [facility] Eosinophil Absolute 0.08 0.00 - 0.60 x10E9/L 09/26/2023 6:41 AM [facility] Basophil Absolute 0.04 0.00 - 0.13 x10E9/L 09/26/2023 6:41 AM [facility] Blood BLOOD SPECIMEN / Unknown Lab Venipuncture / Unknown 09/26/2023 6:11 AM CDT 09/26/2023 6:24 AM T Toshia Patterson MD LAB - HEMATOLOGY ORD ERABLES Performing Organization Address City/State/[facility] Co de Phone Number [facility] [address] [place] [address], [facility] [phone] * (ABNORMAL) RENAL FUNCTION PANEL (09/26/2023 6:11 AM CDT) BUN 13 7 - 26 mg/dL 09/26/2023 6:58 AM [facility] Creatinine 0.89 0.56 - 0.96 mg/dL 09/26/2023 6:58 AM [facility] Sodium 140 136 - 145 mmol/L 09/26/2023 6:58 AM [facility] Potassium 3.9 3.5 - 4.5 mmol/L 09/26/2023 6:58 AM [facility] Chloride 110(H) 98 - 107 mmol/L 09/26/2023 6:58 AM [facility] CO2 23 22 - 29 mmol/L 09/26/2023 6:58 AM [facility] Glucose 94 70 - 115 mg/dL 09/26/2023 6:58 AM [facility] Albumin 3.3(L) 3.4 - 5.0 g/dL 09/26/2023 6:58 AM [facility] Calcium 9.7 8.4 - 10.2 mg/dL 09/26/2023 6:58 AM [facility] Phosphorus 2.9 2.9 - 5.1 mg/dL 09/26/2023 6:58 AM [facility] Anion Gap 7 6 - 16 09/26/2023 6:58 AM [facility] BUN/Creatinine Ratio 15 7 - 23 09/26/2023 6:58 AM [facility] Osmolality Calculated 290 275 - 295 mOsm/kg 09/26/2023 6:58 AM [facility] eGFR by CKD-EPI 75(L) >=90 mL/min/1.7 3 m2 09/26/2023 6:58 AM [facility] Blood BLOOD SPECIMEN / Unknown Lab Venipuncture / Unknown 09/26/2023 6:11 AM CDT 09/26/2023 6:25 AM T Toshia Patterson MD LAB - CHEMISTRY ORDE ALFR[facility]O [facility] Organization Address City/State/ZIP Co de Phone Number [facility] [address] [place] [address], [facility] [phone] * MAGNESIUM BLOOD (09/26/2023 6:11 AM [facility]) Only the most recent of3 resultswithin the time period is included. Magnesium 2.1 1.6 - 2.6 mg/dL 09/26/2023 6:58 AM [facility] Blood BLOOD SPECIMEN / Unknown Lab Venipuncture / Unknown 09/26/2023 6:11 AM CDT 09/26/2023 6:25 AM CDT Toshia Patterson MD LAB - CHEMISTRY ORDE ALFREDO [facility] [address] [place] [address], [facility] [phone] * EKG 12-LEAD (09/26/2023 5:14 AM CDT) Only the most recent of5 resultswithin the time period is included. Ventricular Rate 61 BPM [facility] M[facility] Atrial Rate [address] [facility] M[facility] P-R Interval [address] [facility] QRS Duration ms [address] [facility] M[facility] Q-T Interval ms [address] [facility] QTC Calculation (Bezet) 463 ms SL MUSE Calculated P [place] 45 degrees SL MUSE Calculated R [place] 25 degrees SL MUSE Calculated T [place] [address] [facility] M[facility] Interpretation EKG NORMAL SINUS RHYTHM MINIMAL VOLTAGE CRITERIA FOR LVH, MAY BE NORMAL VARIANT NON-SPECIFIC INTRA-VENTRICU LAR CONDUCTION DELAY POSSIBLE ANTERIOR INFARCT ABNORMAL ECG WHEN COMPARED WITH ECG OF 26-SEP-2023 05:13, NO SIGNIFICANT CHANGE WAS FOUND Confirmed by STACEY MORRISON, LAZAROJUANA ([id number]) on 09/27/2023 10:49:[address] [facility] M[facility] 09/26/2023 5:14 AM CDT 09/27/2023 10:49 PM CDT Toshia Patterson MD ECG ORDERABLES [facility] * GLUCOSE - POINT OF CARE (09/25/2023 2:05 PM CDT) Only the most recent of68 resultswithin the time period is included. Pathologist [facility] Glucose WB/POC 106 70 - 115 mg/dL 09/26/2023 12:[address] [facility] Specimen Type Cap Fingerstick 2023 12:32 AM CDT [facility] Blood BLOOD SPECIMEN / Unknown 09/25/2023 2:05 PM CDT 09/26/2023 12:32 AM CDT Toshia Patterson MD LAB - POINT OF CARE ORDERABLES [place] [id number] [place] [address], [facility] [phone] * CCL TRANSCATH AORTIC VALVE REPLACEMENT (09/25/2023 12:17 PM CDT) Only the most recent of2 resultswithin the time period is included. Anatomical Region Laterality Modality X-Ray Angiograph y Narrative 09/25/2023 12:39 PM CDT Successful TAVR 26 mm S3 bioprosthetic valve. Successful fracturing of the old valve ring with 26 mm true balloon . Procedure Details Estimated Blood Loss: 25 mL Procedure Indications Primary procedure indication: severe symptomatic aortic stenosis. NYHA class III (symptoms of heart failure with minimal exertion). STS risk assessment: intermediate risk (4-8% risk of 30-day mortality). Patient Prep Informed consent was obtained after a detailed discussion with the patient about the procedure's risks, benefits, and alternatives. The patient consented to open heart surgery should the device placement fail. The patient was brought to the experimental machining lab manager in a fasting state. A timeout was performed. The patient was prepped and draped in the usual sterile fashion. MAC was administered by the anesthesia department. Access 1 Access was obtained via the right femoral artery with a micropuncture kit. A 6 Fr sheath sheath was inserted. Fluoroscopic guidance was used for access. Access 2 Access was obtained via the left femoral artery with a micropuncture kit. A 6 Fr sheath sheath was inserted. Fluoroscopic guidance and US guidance was used for access. Access 3 Access was obtained via the left femoral vein with a micropuncture kit. A 7 Fr sheath sheath was inserted. Fluoroscopic guidance was used for access. Delivery Sheath The right femoral arteryA delivery sheath Set Intro Esheath + 14-F (14-Fr) was inserted into the right femoral artery. Delivery Device A 26 mm PETER III valve was carefully prepped and inspected by the OR staff. Predilatation was performed under rapid ventricular pacing. The device was introduced into the delivery sheath and inserted into the right common femoral artery. An implant time out was called. The device was advanced across the aortic arch under fluoroscopic guidance and positioned across the aortic annulus. The valve Vlv Aor 26mm Peter 3 Cmndr Edwrd was deployed slowly at a pacing rate of 180 bpm and valve positioning was adjusted as needed under the guidance of fluoroscopy and aortography. Postdilatation was performed under rapid ventricular pacing using a Cath Balln Dil True 26Mm 110Cm 4.5Cm. The delivery system was then walked back into the descending thoracic aorta. Diagnostic imaging was performed using transthoracic echocardiography and supravalvular aortography to evaluate aortic regurgitation and paravalvular regurgitation (see echo report for details). Echo findings: no aortic regurgitation and no paravalvular regurgitation. The 26 mm True balloon was used to crack the old valve cage The delivery device was removed and valve deployment was successful. The balloon volume was nominal. Wire/Catheter A pigtail catheter was advanced over a J-wire to the non-coronary cusp. Aortic root aortography was obtained to confirm the pigtail placement. A 5-Fr catheter was advanced into the aortic root. The aortic valve was crossed . The catheter was advanced into the left ventricular chamber. An exchange length J- wire was placed through the catheter at the left ventricular apex, and the catheter was exchanged for a Gw Vasc Lndrqs .035In 260Cm 11Cm Str Tpr pigtail catheter. Simultaneous LV and aortic pressures were measured. A wire was placed in the LV apex. Transvenuos Pacemaker A temporary pacemaker was placed. Placement was necessary because of a valve replacement. Left femoral vein access was obtained using a 7-Fr introducer sheath. A 7-Fr balloon tip transvenous pacemaker was placed at the right ventricular apex under fluoroscopic guidance. Recommendations - Resume previous medications. Toshia Patterson MD CV CARDIAC CATH CUPI D PROCS * BLOOD TYPE VERIFICATION (09/25/2023 9:09 AM CDT) Only the most recent of2 resultswithin the time period is included. ABO Rh A POS 09/25/2023 9:[address] [facility] Blood Bank BLOOD SPECIMEN / Unknown 09/25/2023 9:09 AM CDT 09/25/2023 9:14 AM CDT Jasmine Winslow FIRE CONTROLMAN-FILENET DEVELOPER LAB - BLOOD B ANK ORDERABLES Performing Organization Address City/[facility]/ZIP Co de Phone Number [facility] [address] [place] [address], [facility] [phone] * TYPE + SCREEN PANEL (09/25/2023 8:49 AM CDT) Only the most recent of5 resultswithin the time period is included. Antibody Screen NEG 9:[address] [facility] ABO Rh A POS 09/25/2023 9:[address] [facility] Blood Bank BLOOD SPECIMEN / Unknown Venipuncture / Unknown 09/25/2023 8:49 AM CDT 09/25/2023 8:52 AM CDT Liz Powellvincentclaudia FIRE CONTROLMAN-PLAYER DEVELOPMENT MANAGER LAB - BLO OD BANK ORDERABLES Performing Organization Address City/[facility]/ZIP Co de Phone Number [facility] [address] [place] [address], [facility] [phone] * APHERESIS/TRANSFUSION ORDER (09/19/2023 8:22 PM CDT) Only the most recent of4 resultswithin the time period is included. Narrative 09/19/2023 8:22 PM CDT Ordered by an unspecified provider. Scanned Document NURSING - VITAL SIGN S AND ASSESSMENT * XR CHEST 2VW (09/15/2023 12:41 PM CDT) Only the most recent of2 resultswithin the time period is included. Anatomical Region Laterality Modality Chest Radiographic Sofia ging 09/15/2023 12:4 4 PM CDT Impressions 09/15/2023 12:44 PM CDT IMPRESSION: No acute disease. > Interpreting Provider: Edgardo Linn MD on 09/15/2023 12:44 PM Narrative 09/15/2023 12:44 PM CDT Chest Two Views History: Aortic valve stenosis. Shortness of breath.. FINDINGS: The lungs are clear. No pleural effusion or pneumothorax seen. Cardiac silhouette within normal limits. Median sternotomy noted. Prior aortic valve replacement Procedure Note Edgardo Linn MD - 09/15/2023 Chest Two Views History: Aortic valve stenosis. Shortness of breath.. FINDINGS: The lungs are clear. No pleural effusion or pneumothorax seen. Cardiac silhouette within normal limits. Median sternotomy noted. Prior aortic valve replacement IMPRESSION: No acute disease. > Interpreting Provider: Edgardo Linn MD on 09/15/2023 12:44 PM Jasmine Winslow [facility] ORDERABLES * PT PTT PANEL (09/15/2023 11:56 AM CDT) Only the most recent of3 resultswithin the time period is included. PT 12.4 12.1 - 14.8 sec 09/15/2023 12:18 PM CDT [facility] INR 0.9 0.9 - 1.1 09/15/2023 12:18 PM CDT [facility] PTT 31.5 23.0 - 38.4 sec 09/15/2023 12:18 PM CDT [facility] Blood BLOOD SPECIMEN / Unknown Venipuncture / Unknown 09/15/2023 11:56 AM CDT 09/15/2023 12:05 PM CDT Narrative [facility] - 09/15/2023 12:18 PM CDT Conventional Warfarin Anticoagulant Therapy: INR Reference Range: 2.0-3.0 Intensive Warfarin Anticoagulant Therapy: INR Reference Range: 2.5-3.5 Heparin Therapeutic Range for PTT: 69.0 - 110.0 seconds. Jasmine Winslow [facility] - COAGULA TION ORDERABLES [facility] [address] [place] [address] * (ABNORMAL) COMPREHENSIVE METABOLIC PANEL (09/15/2023 11:56 AM CDT) Only the most recent of4 resultswithin the time period is included. Glucose 91 70 - 105 mg/dL 09/15/2023 12:28 PM CDT [facility] Sodium 140 136 - 145 mmol/L 09/15/2023 12:28 PM CDT [facility] Potassium 5.0 3.5 - 5.1 mmol/L 09/15/2023 12:28 PM CDT [facility] Chloride 107 98 - 107 mmol/L 09/15/2023 12:28 PM CDT [facility] CO2 23 22 - 29 mmol/L 09/15/2023 12:28 PM CDT [facility] Calcium 10.0 8.4 - 10.4 mg/dL 09/15/2023 12:28 PM CDT [facility] Anion Gap 10 6 - 16 mmol/L 09/15/2023 12:28 PM CDT [facility] BUN 26 7 - 26 mg/dL 09/15/2023 12:28 PM CDT [facility] Creatinine 1.19(H) 0.57 - 1.11 mg/dL 09/15/2023 12:28 PM CDT [facility] Alkaline Phosphatase 109 40 - 150 U/L 09/15/2023 12:28 PM CDT [facility] ALT 21 0 - 55 U/L 09/15/2023 12:28 PM CDT [facility] AST 26 5 - 34 U/L 09/15/2023 12:28 PM CDT [facility] Protein Total 7.7 6.4 - 8.3 gm/dL 09/15/2023 12:28 PM CDT [facility] Albumin 3.9 3.4 - 5.0 gm/dL 09/15/2023 12:28 PM CDT [facility] Bilirubin Total 0.8 0.2 - 1.2 mg/dL 09/15/2023 12:28 PM T [facility] eGFR by CKD-EPI 53(L) >=90 mL/min/1.7 3 m2 09/15/2023 12:28 PM T [facility] Blood BLOOD SPECIMEN / Unknown Venipuncture / Unknown 09/15/2023 11:56 AM CDT 09/15/2023 12:05 PM CDT Jasmine Winslow FIRE CONTROLMAN-FILENET DEVELOPER LAB - EXECUTIVE VICE PRESIDENT AND CHIEF FINANCIAL OFFICER RY ORDERABLES [facility] [address] [place] [address] * MRI ABDOMEN WWO CONTRAST (08/02/2023 5:42 PM [employer] [facility]) Only the most recent of2 resultswithin the time period is included. Anatomical Region Laterality Modality Abdomen Magnetic Resonan ce 08/02/2023 8:00 PM [facility] Impressions 08/03/2023 10:16 AM [facility] IMPRESSION: INTERVAL RIGHT NEPHRECTOMY. PROTEINACEOUS AND SIMPLE CYSTS WITHIN THE LEFT KIDNEY. NO FURTHER FOLLOW-UP RECOMMENDED. NO ACUTE FINDINGS. Edited by Phoebe Morin on 08/03/2023 8:22 AM > Interpreting Provider: Manas Arteaga MD on 08/03/2023 10:16 AM Narrative 08/03/2023 10:16 AM [facility] PROCEDURE: MRI ABDOMEN WWO CONTRAST DATE/TIME OF EXAM: 08/02/2023 5:59 PM CLINICAL INFORMATION: None relevant/not provided if blank. Indication: N28.89: Other specified disorders of kidney and ureter Restaging right renal cell carcinoma. COMPARISON: MRI abdomen 02/20/2014 TECHNIQUE: Multiplanar, multisequence MR imaging of the abdomen before and following uneventful administration of intravenous contrast according to standard contrast-enhanced protocol. CONTRAST: GADOTERATE MEGLUMINE 0.5 MMOL/ML IV SSM SO:20 mL FINDINGS: Interval right nephrectomy. No abnormal soft tissue within the right renal fossa. 2.6 x 2.1 cm exophytic round circumscribed mass arising from the lateral cortex of the midpole of the left kidney. Lesion exhibits hypointense T2 signal and T1 signal that is isointense to renal cortex. No enhancement following the administration of intravenous gadolinium. This is consistent with a proteinaceous cyst. 3.8 cm fluid signal nonenhancing simple cyst anterior cortex upper pole left kidney. No solid left renal masses. Left kidney normal in size. No hydronephrosis of the left kidney. Gallbladder absent. Liver normal in size. Mild heterogeneous foci of diminished signal within the hepatic parenchyma on opposed-phase sequences consistent with mild hepatic steatosis. No liver masses. Focal fatty atrophy within the uncinate process of the pancreas. The remainder of the pancreas is within normal limits. Signal and morphology of the adrenal glands and spleen are within normal limits. Bowel loops normal in caliber. No pathologically enlarged lymph nodes. No abnormal sites of marrow signal replacement. Procedure Note Manas Arteaga MD - 08/03/2023 PROCEDURE: MRI ABDOMEN WWO CONTRAST DATE/TIME OF EXAM: 08/02/2023 5:59 PM CLINICAL INFORMATION: None relevant/not provided if blank. Indication: N28.89: Other specified disorders of kidney and ureter Restaging right renal cell carcinoma. COMPARISON: MRI abdomen 02/20/2014 TECHNIQUE: Multiplanar, multisequence MR imaging of the abdomen before andfollowing uneventful administration of intravenous contrast according to standard contrast-enhanced protocol. CONTRAST: GADOTERATE MEGLUMINE 0.5 MMOL/ML IV SSM SO:20 mL FINDINGS: Interval right nephrectomy. No abnormal soft tissue within the rightrenal fossa. 2.6 x 2.1 cm exophytic round circumscribed mass arising from the lateral cortex of the midpole of the left kidney. Lesion exhibits hypointense T2 signal and T1 signal that is isointense to renal cortex. No enhancement following the administration of intravenous gadolinium. This isconsistent with a proteinaceous cyst. 3.8 cm fluid signal nonenhancing simple cyst anterior cortex upper pole left kidney. No solid left renal masses. Left kidney normal in size. Nohydronephrosis of the left kidney. Gallbladder absent. Liver normal in size. Mild heterogeneous foci of diminished signalwithin the hepatic parenchyma on opposed-phase sequences consistent with mild hepatic steatosis. No liver masses. Focal fatty atrophy within the uncinate process of the pancreas. The remainder of the pancreas is within normal limits. Signal and morphology of the adrenal glands and spleen are within normal limits. Bowel loops normal in caliber. No pathologically enlarged lymph nodes. No abnormal sites of marrow signal replacement. IMPRESSION: INTERVAL RIGHT NEPHRECTOMY. PROTEINACEOUS AND SIMPLE CYSTS WITHIN THE LEFT KIDNEY. NO FURTHERFOLLOW-UP RECOMMENDED. NO ACUTE FINDINGS. Edited by Phoebe Morin on 08/03/2023 8:22 AM > Interpreting Provider: Manas Arteaga MD on 08/03/2023 10:16 AM Shadi Molina MD MR ORDERABLES * CARDIAC PROCEDURE ORDER (07/17/2023) Only the most recent of4 resultswithin the time period is included. Narrative 07/17/2023 Ordered by an unspecified provider. Scanned Document CARDIAC SERVICES ORD ERABLES * CT ANGIO TAVR NECK CHEST ABD PEL (07/11/2023 12:47 PM [employer] [facility]) Anatomical Region Laterality Modality Chest, Abdomen, Pelvis Computed Tomography 07/11/2023 3:48 PM [facility] Impressions 07/11/2023 3:58 PM [employer] IMPRESSION: 1.Ectatic ascending aorta with vascular measurements as above. 2.Ectatic main pulmonary artery suggesting underlying pulmonary hypertension. 3.Enhancing exophytic mass along the inferior aspect of the left kidney is incompletely evaluated. Further evaluation with renal MRI with contrast is recommended. 4.Surgically absent right kidney. > Interpreting Provider: Brad Hahn MD on 07/11/2023 3:58 PM Narrative 07/11/2023 3:58 PM [facility] PROCEDURE: CT ANGIO TAVR NECK CHEST ABD PEL, DATE/TIME OF EXAM: 07/11/2023 12:49 PM, LOCATION [facility] INDICATION: I35.0: Nonrheumatic aortic (valve) stenosis Z01.818: Encounter for other preprocedural examination I34.0: Nonrheumatic mitral (valve) insufficiency ADDITIONAL CLINICAL INFORMATION: Ordering Provider Reason For Exam: Technologist Note: Additional: COMPARISON: None. TECHNIQUE: CT angiography of the chest, abdomen, and pelvis was performed following the uneventful administration of 200 mL of Isovue-370 intravenous contrast according to a transcatheter aortic valve replacement (TAVR) protocol. Multiplanar, 3-dimensional, and MIP reformats were submitted. Dose reduction techniques were utilized. FINDINGS: None. Vascular: The ascending aorta measures 2.8 cm at the annulus, 4.0 cm at the sinus of Valsalva, 4.1 cm at the sinotubular junction, and 4.1 cm at the level of the main pulmonary artery. The abdominal aorta measures 1.7 cm just superior to the bifurcation. The right common iliac artery measures 9 mm. The right external iliac artery measures 6 mm. The right femoral artery measures 9 mm at the level of the femoral head. The left common iliac artery measures 10 mm The left external iliac artery measures 8 mm. The left femoral artery measures 10 mm at the level of the femoral head. The right subclavian artery measures 5 mm. The left subclavian artery measures 6 mm. The descending thoracic aorta and abdominal aorta are normal in course and caliber. An aortic valve prosthesis is noted. The main pulmonary artery is ectatic measuring 3.4 cm. The coronary arteries are atherosclerotic. The branches of the abdominal aorta are patent and well opacified. Chest: Mild bilateral dependent atelectasis is present. Otherwise no focal consolidation is seen. No pleural effusion or focal pleural thickening is identified. There is no evidence of pneumothorax. No suspicious pulmonary nodule is identified. The trachea is patent and midline. The heart is enlarged. No pericardial effusion is present. No mediastinal, hilar, supraclavicular, or axillary lymphadenopathy is seen. The thyroid gland enhances homogenously. Abdomen/pelvis: The liver enhances homogenously. The gallbladder is absent. The intrahepatic and extrahepatic bile ducts are nondilated. The spleen enhances homogenously without focal lesion. The pancreas and adrenal glands are normal. The right kidney is surgically absent. A left renal cyst measure up to 3.7 cm. There is an enhancing exophytic mass along the inferior aspect of the left kidney which is incompletely evaluated on this exam measuring 2.7 cm. The esophagus and stomach appear normal. The small bowel and large bowel are normal in caliber without evidence of wall thickening or obstruction. The appendix appears normal without appendicolith or surrounding inflammatory changes. No free air or free fluid is identified within the abdomen. There is no abdominal lymphadenopathy. The urinary bladder is distended with fluid and appears normal. The uterus is absent. No free fluid is seen within the pelvis. There is no pelvic lymphadenopathy. Postoperative changes of the sternum are noted. The visible osseous structures are intact. Multilevel degenerative changes are noted in the spine. Procedure Note Brad Hahn MD - 07/11/2023 PROCEDURE: CT ANGIO TAVR NECK CHEST ABD PEL, DATE/TIME OF EXAM:07/11/2023 12:49 PM, LOCATION [facility] INDICATION: I35.0: Nonrheumatic aortic (valve) stenosis Z01.818: Encounter for other preprocedural examination I34.0: Nonrheumatic mitral (valve) insufficiency ADDITIONAL CLINICAL INFORMATION: Ordering Provider Reason For Exam: Technologist Note: Additional: COMPARISON: None. TECHNIQUE: CT angiography of the chest, abdomen, and pelvis wasperformed following the uneventful administration of 200 mL of Isovue-370intravenous contrast according to a transcatheter aortic valve replacement (TAVR) protocol. Multiplanar, 3-dimensional, and MIP reformats were submitted. Dose reduction techniques were utilized. FINDINGS: None. Vascular: The ascending aorta measures 2.8 cm at the annulus, 4.0 cm at the sinusof Valsalva, 4.1 cm at the sinotubular junction, and 4.1 cm at the level of the main pulmonary artery. The abdominal aorta measures 1.7 cm just superior to the bifurcation. The right common iliac artery measures 9 mm. The right external iliac artery measures 6 mm. The right femoral artery measures 9 mm at the level of the femoral head. The left common iliac artery measures 10 mm The left external iliac artery measures 8 mm. The left femoral artery measures 10 mm at the level of the femoral head. The right subclavian artery measures 5 mm. The left subclavian artery measures 6 mm. The descending thoracic aorta and abdominal aorta are normal in courseand caliber. An aortic valve prosthesis is noted. The main pulmonary arteryis ectatic measuring 3.4 cm. The coronary arteries are atherosclerotic. The branches of the abdominal aorta are patent and well opacified. Chest: Mild bilateral dependent atelectasis is present. Otherwise no focal consolidation is seen. No pleural effusion or focal pleural thickeningis identified. There is no evidence of pneumothorax. No suspiciouspulmonary nodule is identified. The trachea is patent and midline. The heart is enlarged. No pericardial effusion is present. Nomediastinal, hilar, supraclavicular, or axillary lymphadenopathy is seen. The thyroid gland enhances homogenously. Abdomen/pelvis: The liver enhances homogenously. The gallbladder is absent. The intrahepatic and extrahepatic bile ducts are nondilated. The spleen enhances homogenously without focal lesion. The pancreas and adrenalglands are normal. The right kidney is surgically absent. A left renal cyst measure up to 3.7 cm. There is an enhancing exophytic mass along the inferior aspect of the left kidney which is incompletely evaluated onthis exam measuring 2.7 cm. The esophagus and stomach appear normal. The small bowel and large bowel are normal in caliber without evidence of wall thickening orobstruction. The appendix appears normal without appendicolith or surrounding inflammatory changes. No free air or free fluid is identified within the abdomen. There is no abdominal lymphadenopathy. The urinary bladder is distended with fluid and appears normal. Theuterus is absent. No free fluid is seen within the pelvis. There is no pelvic lymphadenopathy. Postoperative changes of the sternum are noted. The visible osseous structures are intact. Multilevel degenerative changes are noted in the spine. IMPRESSION: 1.Ectatic ascending aorta with vascular measurements as above. 2.Ectatic main pulmonary artery suggesting underlying pulmonary hypertension. 3.Enhancing exophytic mass along the inferior aspect of the left kidneyis incompletely evaluated. Further evaluation with renal MRI with contrastis recommended. 4.Surgically absent right kidney. > Interpreting Provider: Brad Hahn MD on 07/11/2023 3:58 PM Jasmine Winslow FIRE CONTROLMAN-FILENET DEVELOPER CT ORDERABLES * ECHO DARÍO COMPLETE (06/26/2023 10:45 AM [facility]) BSA 2.92 m2 SS CV [place] PACS Anatomical Region Laterality Modality Ultrasound Narrative 06/27/2023 8:19 AM [facility] Left Ventricle: Left ventricle size is normal. Normal wall thickness. Normal systolic function with a visually estimated EF of 55 - 60%. Normal wall motion. Diastolic function is indeterminate. Mitral Valve: Moderate to severe regurgitation. Aortic Valve: Severe stenosis. Left Ventricle Left ventricle size is normal. Normal wall thickness. Normal systolic function with a visually estimated EF of 55 - 60%. Normal wall motion. Diastolic function is indeterminate. Right Ventricle Right ventricle size is normal. Normal systolic function. Left Atrium Left atrium size is normal. No right to left intracardiac or extracardiac shunt present. No thrombus present in the left atrial appendage (PATT). Right Atrium Right atrium size is normal. Mitral Valve Mild annular dilation. Moderate to severe regurgitation. No stenosis. Tricuspid Valve Valve structure is normal. No regurgitation. No stenosis. Aortic Valve Bioprosthetic valve. No regurgitation. Severe stenosis. Pulmonic Valve No regurgitation. No stenosis. Ascending Aorta Normal sized annulus. Pericardium No pericardial effusion. Study Details A complete echo was performed using complete 2D, color flow Doppler, spectral Doppler and M-mode. During the study the esophageal, transgastric and descending thoracic views were captured. Saline (bubble) contrast was used during the study. The probe was inserted by the orthopedic shoe fitter. There was no probe insertion difficulty. General anesthesia was administered. Sedation was managed by the anesthesiologist. There were no complications during the procedure. Cresencio Cisse MD ECHO CUPID * BASIC METABOLIC PANEL (CALCIUM TOTAL) (06/14/2023 1:33 PM [facility]) Only the most recent of11 resultswithin the time period is included. Glucose 89 70 - 99 mg/dL [facility] INSURANCE BILL BUN 16 6 - 24 mg/dL [facility] INSURANCE BILL Creatinine 0.94 0.57 - 1.00 mg/dL [facility] INSURANCE BILL eGFR by CKD-EPI 70 >59 mL/min/1.7 3 [facility] INSURANCE BILL BUN/Creatinine Ratio 17 9 - 23 [facility] INSURANCE BILL Sodium 143 134 - 144 mmol/L [facility] INSURANCE BILL Potassium 4.6 3.5 - 5.2 mmol/L [facility] INSURANCE BILL Chloride 104 96 - 106 mmol/L [facility] INSURANCE BILL CO2 25 20 - 29 mmol/L [facility] INSURANCE BILL Calcium 9.9 8.7 - 10.2 mg/dL [facility] INSURANCE BILL Blood BLOOD SPECIMEN / Unknown 06/14/2023 1:33 PM [facility] 06/14/2023 Narrative Resulting Agency Comment [facility]: [facility] [address] [facility] [id number] Cresencio Cisse MD LAB - CHEMISTRY [facility] INSURANCE BILL [address] [place] [address] * ECHOCARDIOGRAM 2D WITH DOPPLER (01/21/2022 9:39 AM CDT) Only the most recent of5 resultswithin the time period is included. 01/21/2022 9:39 AM CDT Narrative Procedure Note Phani Townsend MD - 01/25/2022 . [facility] [address] [place] [address] Echocardiography Examination Transthoracic Name: MARLENE SAL [facility]#: MR#: [id number] Admission Number: [id number] Study Date: 01/21/2022 Study Time: 10:15 AM Date Of : 1965 Age: 56 years Height: 70 in. (177.8 cm) Weight: 392 lbs. (177.81 kg) BSA: 2.78 m2 Gender: Female Blood Pressure: 122 mmHg / 75 mmHg Heart Rate: 70 bpm Exam Details Procedure Ordered: ECHOCARDIOGRAM 2D W/DOPPLER Procedure Components: Complete 2D, M-mode, complete spectral Doppler, color Doppler, Definity Procedure Status: Routine study Image Quality: Technically Difficult Contrast: Intravenous contrast (Definity) was administered to opacify the left ventricle. Facility Location: [facility] Indication: Evaluate prosthetic aortic valve Procedure Clinical Biochemist: Yasmeen Reynolds RDCS Ordering Provider: Phani Townsend MD Reading Physician: Phani Townsend MD Conclusions Left Ventricle: Left ventricle is normal in size. Normal global systolic left ventricular function. Left ventricle wall thickness is normal. There are no regional wall motion abnormalities. Doppler parameters are consistent with abnormal left ventricular relaxation (Grade 1 diastolic dysfunction). Left Atrium: The left atrium is mildly dilated. Right Atrium: The right atrium is mildly dilated. Aortic Valve: There is mild aortic stenosis. The aortic valve is a bioprosthesis. Peak/mean aortic systolic gradient is 43/22 mmHg.. Patient: MARLENE SAL Study Date: 01/21/2022 10:15 AM Page 1 of 3 Tricuspid Valve: Mild tricuspid regurgitation. Follow up: Findings Left Ventricle: Left ventricle is normal in size. Normal global systolic left ventricular function. EF evaluated by biplane method of disks. Left ventricle wall thickness is normal. There are no regional wall motion abnormalities. Doppler parameters are consistent with abnormal left ventricular relaxation (Grade 1 diastolic dysfunction). Right Ventricle: Normal size right ventricle. Right ventricular wall thickness is normal. Right ventricular systolic function is normal. Pulmonary artery pressure normal. Left Atrium: The left atrium is mildly dilated. Right Atrium: The right atrium is mildly dilated. Mitral Valve: Mitral leaflets exhibit normal cuspal separation. No mitral regurgitation. No mitral valve stenosis. Aortic Valve: Aortic leaflets exhibit normal cuspal separation. No aortic valve regurgitation. There is mild aortic stenosis. The aortic valve is a bioprosthesis. Peak/mean aortic systolic gradient is 43/22 mmHg.. The prosthetic aortic valve exhibits slightly sclerosed cusps. Tricuspid Valve: Tricuspid valve leaflets are normal. Mild tricuspid regurgitation. No tricuspid valve stenosis. Pulmonic Valve: Pulmonic leaflets exhibit normal cuspal separation. No pulmonic valve regurgitation is evident. There is no pulmonic valve stenosis. Aorta: The aorta is normal. No dilation of the ascending aorta. The aortic root exhibits normal size. Great Vessels: IVC: The inferior vena cava is normal in size and course. Pericardium: The pericardium is normal in appearance. No pericardial effusion. Clinical Data Comment: NICM,HTN,DOREEN,Nonrheumatic AV stenosis Measurements Anatomy Label Value Normal Value Aortic Valve AV Vmean 2.24 m/s Aortic Valve AV VTI 81.83 cm Aortic Valve AV PGmax 34 mmHg Aortic Valve AV PGmean 22 mmHg Aortic Valve AV Vmax, Curve 2.91 m/s (1m/s - 1.7m/s) Aortic Valve LVOT VTI / AV VTI 0.28 Aortic Valve LVOT Vmax / AV Vmax 0.3 Interventricular septum IVSd, MM 1.1 cm (0.6cm - 0.9cm) Patient: MARLENE SAL Study Date: 01/21/2022 10:15 AM Page 2 of 3 Left Ventricle LVOT Vmax 0.86 m/s (0.7m/s - 1.1m/s) Left Ventricle LVOT VTI 22.71 cm (18cm - 22cm) Left Ventricle LVOT PGmax 3 mmHg Left Ventricle LVDd, MM 5.3 cm (3.9cm - 5.3cm) Left Ventricle LVDs, MM 3.9 cm (2cm - 3.8cm) Left Ventricle LVPWd, MM 1.2 cm (0.6cm - 0.9cm) Left Ventricle FS, MM 26.42 % (27% - 45%) Left Ventricle LVOT PGmean 2 mmHg Left Ventricle LVOT Vmean 0.63 m/s Left Ventricle Diastolic MV E Vmax 0.82 m/s Function Left Ventricle Diastolic MV A Vmax 0.72 m/s Function Left Ventricle Diastolic MV E/A 1.14 Function Left Ventricle Diastolic MV DT 309 ms Function Mitral Valve MV Dec Upton 2.66 m/s Right Ventricle Diastolic TR Pmax 25 mmHg Function Tricuspid Valve TR Vmax 2.51 m/s (No Signature Object) Patient: MARLENE SAL Study Date: 01/21/2022 10:15 AM Page 3 of 3 Phani Townsend MD ECHO ORDERABLES [facility] * GROSS + MICRO EXAM (STL) (05/12/2014 9:45 AM [employer]) Only the most recent of2 resultswithin the time period is included. Case Report Surgical Pathology Report Case: [id number] Authorizing Provider: Fran Sotelo MD Collected: 05/12/2014 09:45 AM Ordering Location: [facility] Received: 05/12/2014 10:45 AM Pathologist: Zechariah Rodney MD Specimen: Kidney 05/15/2014 1:23 PM [facility] Final Diagnosis 1. Kidney, right, robotic-assisted laparoscopic nephrectomy: -- Renal cell carcinoma, clear cell type, grade 2 -- Tumor size, 7.0 x 5.0 x 4.5 cm -- Surgical margin of resection free of tumor involvement SURGICAL PATHOLOGY CANCER CASE SUMMARY PROCEDURE: Radical nephrectomy SPECIMEN LATERALITY: Right TUMOR SITE: Upper pole TUMOR SIZE: 7.0 x 5.0 x 4.5 cm TUMOR FOCALITY: Unifocal MACROSCOPIC EXTENT OF THE TUMOR: Tumor limited to kidney HISTOLOGIC TYPE: Clear cell renal cell carcinoma SARCOMATOID FEATURES: Not identified HISTOLOGIC GRADE: G2 MICROSCOPIC TUMOR EXTENSION: Tumor limited to kidney MARGINS: Margins uninvolved by invasive carcinoma PATHOLOGIC STAGING: Primary tumor: pT1b Regional lymph nodes: pNX Distant metastasis: Not applicable PATHOLOGIC FINDING IN NON-NEOPLASTIC KIDNEY: Chronic pyelonephritis JW/mariel 05/15/2014 1:23 PM [facility] Gross Description Received in formalin in a container labeled Marlene Sal, kidney. The container holds a 241 gram right nephrectomy specimen including an 11 x 7.5 x 5.5 cm kidney and surrounding perirenal fat measuring in thickness from 2.5 cm up to 9 cm. Extending from the renal pelvis is a 12.5 cm in length x 0.5 cm in diameter ureter, renal vein measuring 1 cm in length x 1.5 cm in diameter and a renal artery measuring 1 cm in length x 0.4 cm in diameter. The kidney is sectioned. While sectioning the capsule stripped easily. Section shows a 7 x 5 x 4.5 cm circumscribed yanez-yellow mass with central areas of hemorrhage. The mass is located in the upper pole and pushes against the renal capsule but does not appear to penetrate the capsule or invade into the perirenal fat. The mass does not appear to involve the renal pelvis. The remainder of the renal cortex is pacheco-brown with defined cortical medullary junction. The pelvis and calices are covered by smooth glistening mucosa. The adrenal gland is absent. The tissue is sectioned and contains no lymph nodes or lymph node candidates. Credit Card Analyst sections are submitted as follows: A1 - Ureter, renal vein, renal artery margins of resection A2 - Mass in relation to renal capsule A3-A7 - Random sections of mass including mass in relation to unremarkable kidney parenchyma A8 - Unremarkable kidney parenchyma away from mass DYT/dak 05/15/2014 1:23 PM [facility] Microscopic Description Sections of the right kidney show tumor composed of neoplastic cells. Those cells show enlargement of nuclei, prominent nucleoli and clear cytoplasm. Proliferation of blood vessels and extravasation of red blood cells is seen, as well. The surgical margins of resection are free of tumor involvement. Uninvolved kidney shows chronic pyelonephritis. The following immunostains were ordered: CD10, CAM5.2, vimentin and RCC. All the immunostains show positive staining. The immunostaining pattern, together with morphology, is consistent with renal cell carcinoma, clear cell type. JORDYN/mariel 05/15/2014 1:23 PM [facility] Pathology/Cytolo gy ENTIRE KIDNEY / Unknown 05/12/2014 9:45 AM [employer] 05/12/2014 10:45 AM [facility] Comment:[id number]] Fran Sotelo MD LAB - PATHOLOGY/CY TOLOGY ORDERABLES [facility] [address] [place] [address] * CROSSMATCH RBC (05/12/2014 6:23 AM [employer] [facility]) Only the most recent of4 resultswithin the time period is included. Unit Donor # [id number] [id number] 05/16/2014 7:15 AM [facility] Product Code E0336 05/16/2014 7:15 AM [facility] Unit Description E0336 RBC, LR, CPD>AS1 05/16/2014 7:15 AM [facility] ABO Donor Type A 05/16/2014 7:15 AM [facility] Rh Type Unit POS 05/16/2014 7:15 AM [facility] Unit Status Returned 05/16/2014 7:15 AM [facility] Miscellaneous samples (specimen) BLOOD SPECIMEN / Unknown 05/12/2014 6:23 AM [facility] 05/12/2014 7:24 AM [facility] Fran Sotelo MD LAB - BLOOD BANK O RDERABLES [facility] [address] * (ABNORMAL) URINALYSIS ROUTINE AUTO (04/28/2014 10:33 AM [employer]) Only the most recent of2 resultswithin the time period is included. Color UA Yellow Straw, Yellow, Dark Yellow 04/28/2014 11:53 AM [facility] Clarity UA Cloudy 04/28/2014 11:53 AM [facility] Specific [place] UA 1.018 1.005 - 1.030 04/28/2014 11:53 AM [facility] pH UA 5.0 5.0 - 8.0 pH 04/28/2014 11:53 AM [facility] Protein UA Negative Negative 04/28/2014 11:53 AM [facility] Blood UA Negative Negative 04/28/2014 11:53 AM [facility] Leukocyte UA 2+(A) Negative 04/28/2014 11:53 AM [facility] Nitrite UA Negative Negative 04/28/2014 11:53 AM [facility] Glucose UA Negative Negative 04/28/2014 11:53 AM [facility] Ketone UA Negative Negative 04/28/2014 11:53 AM [facility] Bilirubin UA Negative Negative 04/28/2014 11:53 AM [facility] Urobilinogen UA 0.2 0.1 - 1.0 EU/dL 04/28/2014 11:53 AM [facility] WBC UA Auto 20-50(A) 0-2, 2-5 #/hpf 04/28/2014 11:53 AM [facility] RBC UA Auto 5-10(A) 0-2, 2-5 #/hpf 04/28/2014 11:53 AM [facility] Epithelial Cell UA Auto 2-5 0-2, 2-5 #/hpf 04/28/2014 11:53 AM [facility] Bacteria UA Auto None seen None seen 04/28/2014 11:53 AM [facility] Hyaline Casts UA Auto 2-5(A) 0 - 2 #/lpf 04/28/2014 11:53 AM [facility] Urine URINE SPECIMEN OBTAINED BY CLEAN CATCH PROCEDURE / Unknown 04/28/2014 10:33 AM [employer] [facility] 04/28/2014 11:36 AM [employer] [facility] Fran Sotelo MD LAB - URINALYSIS O RDERABLES Performing Organization Address City/[facility]/ZIP Co de Phone Number [facility] [address] [place] [address] * CULTURE URINE (04/28/2014 10:33 AM FARMWORK[employer] CRANBERR[employer]) Only the most recent of3 resultswithin the time period is included. Culture <10,000 CFU/mL normal enteric brooklynn KIRTI 04/30/2014 10:36 AM [facility] Culture 10,000-50,000 CFU/mL normal urogenital brooklynn KIRTI 04/30/2014 10:36 AM [facility] Urine URINE SPECIMEN OBTAINED BY CLEAN CATCH PROCEDURE / Unknown 04/28/2014 10:33 AM [employer] [facility] 04/28/2014 11:36 AM [employer] [facility] Fran Sotelo MD LAB - MICROBIOLOGY ORDERABLES Performing Organization Address City/[facility]/ZIP Co de Phone Number [facility] [address] [place] [address], [facility] * CARDIAC RHYTHM STRIP ORDER (03/14/2014 4:47 AM CDT) Only the most recent of2 resultswithin the time period is included. Narrative 03/14/2014 4:47 AM CDT Ordered by an unspecified provider. Scanned Document CARDIAC SERVICES ORD ERABLES * XR CHEST PA OR AP (03/10/2014 10:34 AM CDT) Anatomical Region Laterality Modality Chest Radiographic Sofia ging 03/10/2014 10:4 0 AM CDT Narrative 03/10/2014 10:41 AM CDT Portable AP chest Indication: Shortness of breath Comparison: Chest x-ray 02/28/2014 Findings: The Tucker-Olena catheter has been removed. The right internal jugular sheath is stable in position. Cardiomegaly, median sternotomy, and a prosthetic cardiac valve are again noted. Mediastinal drain and left-sided chest tube have been removed. There is no pneumothorax. There are low lung volumes with elevation of the right hemidiaphragm. There is mild linear atelectasis in the medial left lung base. Procedure Note Manas Arteaga MD - 03/10/2014 Portable AP chest Indication: Shortness of breath Comparison: Chest x-ray 02/28/2014 Findings: The Tucker-Olena catheter has been removed. The right internal jugular sheath is stable in position. Cardiomegaly, median sternotomy, and a prosthetic cardiac valve are again noted. Mediastinal drain and left-sided chest tube have been removed. There is no pneumothorax. There are low lung volumes with elevation of the right hemidiaphragm. There is mild linear atelectasis in the medial left lung base. Hammad Reno MD DIAGNOSTIC IMAGING O RDERABLES * XR CHEST 1VW PORTABLE (03/10/2014 6:35 AM CDT) Only the most recent of5 resultswithin the time period is included. Anatomical Region Laterality Modality Chest Radiographic Sofia ging 03/10/2014 8:03 AM CDT Impressions 03/10/2014 8:05 AM CDT Stable appearance of the chest. Narrative 03/10/2014 8:05 AM CDT Portable Chest AP History: Status post valve replacement surgery. Comparison: March 08, 2014. Findings: PA catheter are similar. Mediastinal/chest drains in place. Cardiomegaly, status post median sternotomy, and valve replacement. Right perihilar atelectatic changes and elevated right hemidiaphragm. The left lung is clear. The appearance of the chest is stable. No pleural effusion or pneumothorax seen. Procedure Note Edgardo Linn MD - 03/10/2014 Portable Chest AP History: Status post valve replacement surgery. Comparison: March 08, 2014. Findings: PA catheter are similar. Mediastinal/chest drains in place. Cardiomegaly, status post median sternotomy, and valve replacement. Right perihilar atelectatic changes and elevated right hemidiaphragm. The left lung is clear. The appearance of the chest is stable. No pleural effusion or pneumothorax seen. IMPRESSION Stable appearance of the chest. Vanita Davila APRN-FILENET DEVELOPER DIAGNOSTIC IM AGING ORDERABLES * (ABNORMAL) HEPATIC FUNCTION PANEL (03/10/2014 4:07 AM CDT) Alkaline Phosphatase 96 38 - 126 U/L 03/10/2014 4:49 AM CDT [facility] ALT 128(H) 12 - 78 U/L 03/10/2014 4:49 AM CDT [facility] AST 64(H) 5 - 40 U/L 03/10/2014 4:49 AM CDT [facility] Protein Total 5.6(L) 6.4 - 8.2 gm/dL 03/10/2014 4:49 AM CDT [facility] Albumin 2.9(L) 3.4 - 5.0 gm/dL 03/10/2014 4:49 AM CDT [facility] Bilirubin Total 0.6 0.2 - 1.0 mg/dL 03/10/2014 4:49 AM CDT [facility] Bilirubin Direct 0.2 0 - 0.3 mg/dL 03/10/2014 4:49 AM CDT [facility] Blood BLOOD SPECIMEN / Unknown 03/10/2014 4:07 AM CDT 03/10/2014 4:18 AM CDT Yvonne Chavez FIRE CONTROLMAN-FILENET DEVELOPER LAB - CHEMISTRY ORDERABLES [facility] [id number] [place] [address] * (ABNORMAL) COOXIMETRY MIXED VENOUS (03/09/2014 5:51 AM CDT) Only the most recent of3 resultswithin the time period is included. Hemoglobin Mixed Venous 8.6(L) 14.0 - 16.0 gm/dL 03/09/2014 6:28 AM CDT [facility] Oxyhemoglobin Mixed Venous 55 % 03/09/2014 6:28 AM CDT [facility] Carboxyhemoglobin Mixed Venous 2.5 0.0 - 2.5 % 03/09/2014 6:28 AM CDT [facility] Methemoglobin Mixed Venous 0.0 0.0 - 2.0 % 03/09/2014 6:28 AM CDT [facility] Blood BLOOD SPECIMEN / Unknown 03/09/2014 5:51 AM CDT 03/09/2014 5:51 AM CDT Hammad Reno MD LAB - BLOOD GASES OR DERABLES Performing Organization Address [facility]/[place] de Phone Number [facility] [address] [place] [address] * PT-INR (03/09/2014 2:13 AM CDT) Only the most recent of3 resultswithin the time period is included. PT 10.8 9.4 - 11.2 sec 03/09/2014 2:35 AM CDT [facility] INR 1.02 0.9 - 1.1 03/09/2014 2:35 AM CDT [facility] Blood BLOOD SPECIMEN / Unknown 03/09/2014 2:13 AM CDT 03/09/2014 2:22 AM CDT Narrative [facility] - 03/09/2014 2:35 AM CDT Conventional Anticoagulant Therapy INR Reference Ranges: 2.0-3.0 Intensive Anticoagulant Therapy INR Reference Ranges: 2.5-3.5 Hammad Reno MD LAB - COAGULATION OR DERABLES Performing Organization Address City/[facility]/[place] de Phone Number [facility] [address] [place] [address] * (ABNORMAL) CBC W/O DIFFERENTIAL (03/08/2014 2:09 AM CDT) WBC 17.8(H) 4.4 - 10.7 x10^9/L 03/08/2014 2:25 AM CDT [facility] RBC 3.79(L) 3.80 - 5.20 x10^12/L 03/08/2014 2:25 AM CDT [facility] Hemoglobin 10.9(L) 12.0 - 15.6 gm/dL 03/08/2014 2:25 AM CDT [facility] Hematocrit 32.4(L) 35.9 - 45.5 % 03/08/2014 2:25 AM CDT [facility] MCV 85.5 80.7 - 98.3 fl 03/08/2014 2:25 AM CDT [facility] MCH 28.8 26.7 - 34.0 pg 03/08/2014 2:25 AM CDT [facility] MCHC 33.6 30.8 - 35.9 gm/dL 03/08/2014 2:25 AM CDT [facility] Platelet Count 190 153 - 416 x10^9/L 03/08/2014 2:25 AM CDT [facility] RDW-CV 13.5 12.1 - 14.9 % 03/08/2014 2:25 AM CDT [facility] MPV 9.7 9.4 - 12.9 fl 03/08/2014 2:25 AM CDT [facility] Blood BLOOD SPECIMEN / Unknown 03/08/2014 2:09 AM CDT 03/08/2014 2:14 AM CDT Lorraine Woods APRN-FILENET DEVELOPER LAB - HEMATOLOGY ORDERABLES [facility] [address] [place] [address] * (ABNORMAL) BLOOD GASES ART (ISTAT) (03/07/2014 5:37 PM CDT) pH Arterial POCT 7.32(L) 7.35 - 7.45 pH 03/07/2014 5:41 PM CDT [facility] pCO2 Arterial 38.8 32 - 43 mmHg 03/07/2014 5:41 PM CDT [facility] pO2 Arterial 125(H) 72 - 104 mmHg 03/07/2014 5:41 PM CDT [facility] HCO3 Arterial POCT 20.2(L) 22 - 26 mmol/L 03/07/2014 5:41 PM CDT [facility] BE Arterial -5(L) -2 - 2 mmol/L 03/07/2014 5:41 PM CDT [facility] TCO2 Arterial Calc POCT 21(L) 22 - 29 mmol/L 03/07/2014 5:41 PM CDT [facility] O2 Saturation Arterial 99 90 - 100 % 03/07/2014 5:41 PM CDT [facility] Mode PS 03/07/2014 5:41 PM CDT [facility] PEEP 5 03/07/2014 5:41 PM CDT [facility] Pressure Support 5 03/07/2014 5:41 PM CDT [facility] Site Art Line 03/07/2014 5:41 PM CDT [facility] Maxime's Test NA 03/07/2014 5:41 PM CDT [facility] Treatment Delivery Method VENT 03/07/2014 5:41 PM CDT [facility] FI O2 40 % 03/07/2014 5:41 PM CDT [facility] Sample iSTAT ARTERI 03/07/2014 5:41 PM CDT [facility] PT iSTAT [id number] 03/07/2014 5:41 PM CDT [facility] Device 03/07/2014 5:41 PM CDT [facility] Candy Spreader ID [id number] 03/07/2014 5:41 PM CDT [facility] Blood ARTERIAL BLOOD SPECIMEN / Unknown 03/07/2014 5:37 PM CDT 03/07/2014 5:40 PM CDT Hammad Reno MD LAB - POINT OF CARE ORDERABLES [facility] [address] * CULTURE VRE (03/07/2014 4:58 PM CDT) Culture Negative for VRE KIRTI 03/09/2014 6:45 AM CDT [facility] MICROBIOLOG[facility] Stool RECTAL SWAB / Unknown 03/07/2014 4:58 PM CDT 03/07/2014 5:14 PM CDT Lorrainejosh Gandarajackie HOLLY-FILENET DEVELOPER LAB - MICROBIOLO GY ORDERABLES Performing Organization Address [facility]/ZIP Co de Phone Number [facility]OLOG[facility] [address] * CULTURE MRSA (03/07/2014 3:18 PM CDT) Only the most recent of2 resultswithin the time period is included. Culture Negative for MRSA KIRTI 03/08/2014 6:37 PM CDT [facility] MICROBIOLOGY Microbiology SPECIMEN FROM NASAL FOSSAE / Unknown 03/07/2014 3:18 PM CDT 03/07/2014 4:26 PM CDT Lorraine Woods APRN-FILENET DEVELOPER LAB - MICROBIOLO GY ORDERABLES Performing Organization Address [facility] Co de Phone Number [facility] MICROBIOLOGY [address] [place] [place] * PLATELET COUNT AUTO (03/07/2014 1:31 PM CDT) Platelet Count 224 153 - 416 x10^9/L 03/07/2014 1:59 PM CDT [facility] Blood BLOOD SPECIMEN / Unknown 03/07/2014 1:31 PM CDT 03/07/2014 1:47 PM CDT Lorraine Woods APRN-[facility] LAB - HEMATOLOGY ORDERABLES Performing Organization Address City/[facility] Co de Phone Number [facility] [address] [place] [address] * (ABNORMAL) HGB HCT PANEL (03/07/2014 1:31 PM CDT) Hemoglobin 10.8(L) 12.0 - 15.6 gm/dL 03/07/2014 1:55 PM CDT [facility] Hematocrit 31.6(L) 35.9 - 45.5 % 03/07/2014 1:55 PM CDT [facility] Blood BLOOD SPECIMEN / Unknown 03/07/2014 1:31 PM CDT 03/07/2014 1:47 PM CDT Lorraine Looney Chuck LAURA LAB - HEMATOLOGY ORDERABLES [facility] [address] [place] [address] * (ABNORMAL) BLOOD GASES ART + LYTES GLU CA+ HH (ISTAT) (03/07/2014 1:27 PM CDT) Only the most recent of5 resultswithin the time period is included. pH Arterial POCT 7.36 7.35 - 7.45 pH 03/07/2014 1:31 PM CDT [facility] pCO2 Arterial 37.6 32 - 43 mmHg 03/07/2014 1:31 PM CDT [facility] pO2 Arterial 264(H) 72 - 104 mmHg 03/07/2014 1:31 PM CDT [facility] HCO3 Arterial POCT 21.0(L) 22 - 26 mmol/L 03/07/2014 1:31 PM CDT [facility] BE Arterial -4(L) -2 - 2 mmol/L 03/07/2014 1:31 PM CDT [facility] TCO2 Arterial Calc POCT 22 22 - 29 mmol/L 03/07/2014 1:31 PM CDT [facility] O2 Saturation Arterial 100 90 - 100 % 03/07/2014 1:31 PM CDT [facility] Sodium Arterial 138 136 - 145 mmol/L 03/07/2014 1:31 PM CDT [facility] Potassium Arterial 4.2 3.5 - 5.1 mmol/L 03/07/2014 1:31 PM CDT [facility] Calcium Ionized Arterial POCT 1.28 1.12 - 1.32 mmol/L 03/07/2014 1:31 PM CDT [facility] Glucose Arterial POCT 169(H) 74 - 106 mg/dL 03/07/2014 1:31 PM CDT [facility] Hemoglobin Arterial POCT 9.9(L) 12.0 - 15.6 g/dL 03/07/2014 1:31 PM CDT [facility] Hematocrit Arterial POCT 29.0(L) 35.9 - 45.5 %PCV 03/07/2014 1:31 PM CDT [facility] Mode CMV 03/07/2014 1:31 PM CDT [facility] Respiratory Rate 16 03/07/2014 1:31 PM CDT [facility] PEEP 5 03/07/2014 1:31 PM CDT [facility] Site Art Line 03/07/2014 1:31 PM CDT [facility] Maxime's Test NA 03/07/2014 1:31 PM CDT [facility] Treatment Delivery Method VENT 03/07/2014 1:31 PM CDT [facility] FI O2 100 % 03/07/2014 1:31 PM CDT [facility] Sample iSTAT ARTERI 03/07/2014 1:31 PM CDT [facility] PT iSTAT [id number] 03/07/2014 1:31 PM CDT [facility] VT ISTAT 600 03/07/2014 1:31 PM CDT [facility] CPB iSTAT No 03/07/2014 1:31 PM CDT [facility] Blood ARTERIAL BLOOD SPECIMEN / Unknown 03/07/2014 1:27 PM CDT 03/07/2014 1:30 PM CDT Hammad Reno MD LAB - POINT OF CARE ORDERABLES [facility] [address] * (ABNORMAL) COAGULATION PANEL W D-DIMER (03/07/2014 11:54 AM CDT) PT 13.8(H) 9.4 - 11.2 sec 03/07/2014 12:12 PM CDT [facility] INR 1.29(H) 0.9 - 1.1 03/07/2014 12:12 PM CDT [facility] PTT 26.1 24.0 - 32.0 sec 03/07/2014 12:12 PM CDT [facility] Fibrinogen 211 200 - 400 mg/dL 03/07/2014 12:12 PM CDT [facility] D-Dimer 1.30(H) 0 - 0.5 mg/L FEU 03/07/2014 12:12 PM CDT [facility] Platelet Count 186 153 - 416 x10^9/L 03/07/2014 12:12 PM CDT [facility] Blood BLOOD SPECIMEN / Unknown 03/07/2014 11:54 AM CDT 03/07/2014 11:54 AM CDT Narrative [facility] - 03/07/2014 12:12 PM CDT The innovance D-dimer assay now in use at [facility], [facility] and PENDING SALE TO [facility] is intended for use as an aid in diagnosis of venous thromboembolism [(VTE): deep vein thrombosis (DVT), pulmonary embolism (PE), and disseminated intravascular coagulation (DIC)], and has received FDA approval to exclude VTE in patients with low or moderate pretest probability of PE or DVT (per Wells' rules). At a clinical cut-off value 0.50 mg/L FEU, the Negative Predictive Value of this assay is 99.8% for excluding PE and 100% for excluding DVT. A very low percentage of patients with VTE may yield D-dimer results below cut- off value. An elevated D-dimer result has low specificity (40.4% for PE, 35.5% for DVT) and is a poor predictor of VTE. An elevated D-dimer result may indicate DIC in the appropriate clinical setting. Results of this test should always be interpreted in conjunction with the patient's medical history, clinical presentation, and other findings. Hammad Reno MD LAB - COAGULATION OR DERABLES Performing Organization Address City/[facility] Co de Phone Number [facility] [address] [place] [address] * (ABNORMAL) ACT - POINT OF CARE (03/07/2014 11:40 AM CDT) Only the most recent of5 resultswithin the time period is included. [facility] ACT POCT 100(A) 125 - 187 Seconds [facility] POCT TESTING QC Verified Yes Yes [facility] POC T TESTING Blood specimen (specimen) BLOOD SPECIMEN / Unknown 03/07/2014 11:40 AM CDT Hammad Reno MD LAB - POINT OF CARE ORDERABLES Performing Organization Address [facility] Co de Phone Number [facility] [address] * (ABNORMAL) COOXIMETRY ARTERIAL - POCT (IP) (03/07/2014 10:00 AM CDT) Only the most recent of2 resultswithin the time period is included. Hemoglobin POCT 9.1(A) 12 - 17 gm/dl [facility] TEST[facility] O2 Saturation POCT 92 - 98.5 % [facility] QC Verified Yes Yes DP POC T TESTING Blood specimen (specimen) BLOOD SPECIMEN / Unknown 03/07/2014 10:00 AM CDT Hammad Reno MD LAB - POINT OF CARE ORDERABLES Performing Organization Address [facility] Co de Phone Number [facility] [address] * (ABNORMAL) URINALYSIS MICROSCOPIC ONLY (03/07/2014 6:12 AM CDT) RBC UA 0-2 0-2, 2-5 # /hpf 03/07/2014 8:13 AM CDT [facility] WBC UA 5-10(A) 0-2, 2-5 # /hpf 03/07/2014 8:13 AM CDT [facility] Bacteria UA None Seen None Seen 03/07/2014 8:13 AM CDT [facility] Epithelial Cell UA 5-10(A) 0-2, 2-5 03/07/2014 8:13 AM CDT [facility] Hyaline Casts 5-10(A) 0 - 2 # /lpf 03/07/2014 8:13 AM CDT [facility] Urine URINE SPECIMEN OBTAINED BY CLEAN CATCH PROCEDURE / Unknown 03/07/2014 6:12 AM CDT 03/07/2014 6:45 AM CDT Hammad Reno MD LAB - URINALYSIS ORD ERABLES Performing Organization Address City/[facility]/ZIP Co de Phone Number [facility] [address] [place] [address] * PREPARE PLATELET PHERESIS UNIT(S) (03/07/2014 6:12 AM CDT) Unit Donor # [id number] 03/08/2014 12:06 AM CDT [facility] Product Code E3089 03/08/2014 12:06 AM CDT [facility] ABO Donor Type O 03/08/2014 12:06 AM CDT [facility] Rh Type Unit POS 03/08/2014 12:06 AM CDT [facility] Unit Status Transfused Unit 03/08/2014 12:06 AM CDT [facility] Unit Description E3089 PLT, LR, APH ACD 03/08/2014 12:06 AM CDT [facility] Miscellaneous samples (specimen) BLOOD SPECIMEN / Unknown 03/07/2014 6:12 AM CDT 03/07/2014 6:20 AM CDT Hammad Reno MD LAB - BLOOD BANK ORD ERABLES [facility] [address] * RHEUMATOID FACTOR BLOOD QUANTITATIVE (02/20/2014 3:41 AM CDT) Rheumatoid Factor Quantitative <10 <15 IU/mL 02/20/2014 11:16 AM CDT [facility] Comment: Blood BLOOD SPECIMEN / Unknown 02/20/2014 3:41 AM CDT 02/20/2014 4:05 AM CDT Dodie Abdi MD LAB - CHEMISTRY ORD ERABLES [facility] [address] [place] [address] * STANTON BLOOD SCREEN W/REFLEX TITER (02/20/2014 3:41 AM CDT) STANTON Negative Negative 02/24/2014 12:07 PM CDT [facility] Blood BLOOD SPECIMEN / Unknown 02/20/2014 3:41 AM CDT 02/20/2014 4:05 AM CDT Dodie Abdi MD LAB - CHEMISTRY ORD ERABLES [facility] [address] [place] [address] * DNA ANTIBODY DOUBLE STRAND (02/20/2014 3:41 AM CDT) dsDNA Antibody None Detected None Detected 02/22/2014 12:15 AM CDT [facility] ([facility]) Comment: INTERPRETIVE INFORMATION: Double-Stranded DNA (dsDNA) Antibody, IgG by CHAD Positivity for anti-double stranded DNA (anti-dsDNA) IgG antibody is a diagnostic criterion of systemic lupus erythematosus (SLE). Specimens are initially screened by enzyme-linked immunosorbent assay (CHAD). All CHAD results reported as detected (positive) are confirmed by a highly specific IFA titer (Crithidia luciliae indirect fluorescent test [MUNIRA]). Some patients with early or inactive SLE may be positive for anti-dsDNA IgG by CHAD but negative by MUNIRA. If the patient is negative by MUNIRA but positive by CHAD and clinical suspicion remains, consider antinuclear antibody (STANTON) testing by IFA. Additional information and recommendations for testing may be found at [email or web address]. Blood specimen (specimen) BLOOD SPECIMEN / Unknown 02/20/2014 3:41 AM CDT 02/20/2014 4:05 AM CDT Dodie Abdi MD LAB - HEMATOLOGY OR DERABLES [facility] ([facility]) [address] * ECHOCARDIOGRAM TRANSESOPHAGEAL (02/19/2014 3:13 PM CDT) Narrative [facility] - 02/19/2014 3:13 PM CDT Ruel Huizar MD 02/19/2014 3:13 PM After Informed Consent was obtained and risks and alternatives explained to the patient/family, the patient was placed on a monitored bed. The throat was anesthetized with viscous lidocaine. The patient was sedated with 2 mg Versed and 50 mcg Fentanyl IV. The DARÍO probe was passed smoothly down the esophagus and stomach. After images were obtained, the probe was withdrawn. Other than minor discomfort, the patient tolerated the procedure well. Complications: No desaturation, bleeding, injury to esophagus. Findings: There is LV enlargement and hypertrophy with moderately depressed systolic function. The estimated ejection fraction is 30-40%. There is normal left atrial diameter. There is no thrombus in the left atrial appendage. There is normal aortic root diameter but ascending aortic aneurysm (measuring 3.8 cm). There is mild aortic atherosclerosis. There is normal RA and RV size and function. There is no pericardial effusion. The mitral valve leaflets are structurally normal and moving well. The mean transmitral gradient is within normal limits. There is normal LV diastolic filling. There is trace mitral regurgitation. The aortic valve leaflets are quadricuspid and redundant and moving well. The mean transaortic gradient is not accurately estimated from transgastric views. There is severe aortic regurgitation. The tricuspid valve leaflets are structurally normal and moving well. The interatrial septum is structurally continuous, with no color flow across. Saline Contrast study is negative for a right to left shunt. Impression: 1. No cardiac source of embolus identified. 2. Left ventricular enlargement and hypertrophy with moderately depressed systolic function with mild diastolic dysfunction. 3. Quadricuspid aortic valve with redundant, sclerotic leaflets with severe aortic insufficiency with narrow aortic root (2.5 cm) with a relative ascending aortic aneurysm (3.8 cm) 4. Saline contrast study was minimally positive for a sdjte-vi-yqgy shunt. Ruel Huizar M.D., F.A.C.C. Interpreting Chief Airline Radio Operator Phani Townsend MD ECHO ORDERABLES [facility] * HEMOGLOBIN A1C (02/19/2014 5:32 AM CDT) Hemoglobin A1c 5.3 4.2 - 6.3 % 02/19/2014 6:32 AM CDT [facility] Estimated Average Glucose 105 mg/dL 02/19/2014 6:32 AM CDT [facility] Whole Blood BLOOD SPECIMEN WITH EDTA / Unknown 02/19/2014 5:32 AM CDT 02/19/2014 6:01 AM CDT Mary Cole FIRE CONTROLMAN-FILENET DEVELOPER LAB - CHEMI STRY ORDERABLES Performing Organization Address City/[facility]/ZIP Co de Phone Number [facility] [address] [place] [address] * ED CRITICAL CARE (02/18/2014 2:35 PM CDT) Narrative John Hannah MD - 02/18/2014 2:35 PM CDT John Hannah MD 02/18/2014 2:35 PM Provider contact with the patient: 02/18/2014 06:47 Marlene Sal [id number] [facility] History Chief Complaint Patient presents with Shortness of Breath pt come to us via EMS with c/o short of breath and coughing up blood Chief complaint narrative was entered by triage nurse, not by physician. HPI 6:47 AM Marlene Sal, a 48 y.o. female with no relevant past medical history presents to the ER with c/o SOB and hemoptysis that began with acute onset around 0600. CPAP en route. Sudden onset respiratory distress 30min ago. Cough productive of blood. No fever. No ankle swelling. Denies pain. No recent illness. Risk factors for CAD/CVA: No history of A-fib. No previous CVA. No Family history. No DM. No HTN. No hyperlipidemia. No known CAD. Non smoker. No SLE. No RA. Risk factors for DVT/PE: No family history. No previous DVT/PE. No recent surgery. No cancer history. No recent long trips or leg injuries. No history of SLE/IBD. Non smoker. No estrogens/BCP's. Risk factors for Dissection: No hx of Marfan's syndrome, Dasha Danlos syndrome, bicuspid aortic valve, HTN. No . No history of a first degree relative with aortic aneurism. Non smoker. Vitals: BP 152/81 Pulse 89 Temp(Src) 98.3 F Resp 25 Ht 1.753 m (5' 9 ) Wt 136.079 kg (300 lb) BMI 44.28 kg/m2 SpO2 99% on 5 lpm On Examination: Uncomfortable appearing patient. Trachea central. Equal air entry bilaterally. Transmitted sounds. No pericardial friction rub. No epigastric tenderness to palpation. Radial and dorsal pedal pulses intact and equal bilaterally. No point tenderness on palpation of the chest. Differential Dx: SOB -COPD exacerbation/asthma/bronchospasm -Pneumonia -CHF -PE -Parenchymal disease -Manifestation of CAD -Spontaneous pneumothorax -Pericardial effusion -Pleural effusion -anemia -acidosis causing tachypnea -Tight A.S. -Pulmonary HTN Differential Dx for Hemoptysis: -PE -TB -Sarcoidosis -Mitral stenosis -Demian's granulomatosis -Lung cancer -Lung abscess -Aspergillus -Histoplasma -CHF -Tight A.S. Physician: Joanne Louis Allergies: No Known Allergies Social history: reports that she has never smoked. She has never used smokeless tobacco. She reports that she drinks alcohol. She reports that she does not use illicit drugs. Past Medical History Diagnosis Date HTN (hypertension) Past Surgical History Procedure Laterality Date Hysterectomy No family history on file. History Social History Marital Status: Spouse Name: N/A Number of Children: N/A Years of Education: N/A Occupational History Not on file. Social History Main Topics Smoking status: Never Smoker Smokeless tobacco: Never Used Alcohol Use: Yes Drug Use: No Sexual Activity: Not on file Other Topics Concern Not on file Social History Narrative Review of Systems Review of Systems Constitutional: Negative for fever, chills, diaphoresis and fatigue. HENT: Negative for ear discharge, ear pain, hearing loss and sinus pressure. Eyes: Negative for photophobia, pain and redness. Respiratory: Positive for cough (hemoptysis) and shortness of breath. Negative for apnea, choking, chest tightness, wheezing and stridor. Cardiovascular: Negative for chest pain, palpitations and leg swelling. Gastrointestinal: Negative for nausea, vomiting, abdominal pain, diarrhea, constipation, blood in stool, abdominal distention, anal bleeding and rectal pain. Genitourinary: Negative for dysuria, frequency, flank pain, enuresis and difficulty urinating. Musculoskeletal: Negative for myalgias, back pain, joint swelling, arthralgias, gait problem, neck pain and neck stiffness. Skin: Negative for color change. Neurological: Negative for seizures, syncope, facial asymmetry, speech difficulty, weakness, light-headedness, numbness and headaches. Physical Exam BP 152/81 Pulse 89 Temp(Src) 98.3 F Resp 25 Ht 1.753 m (5' 9 ) Wt 136.079 kg (300 lb) BMI 44.28 kg/m2 SpO2 99% Physical Exam Constitutional: She appears well-developed. HENT: Head: Normocephalic and atraumatic. Eyes: EOM are normal. Pupils are equal, round, and reactive to light. Right eye exhibits no discharge. Left eye exhibits no discharge. Right conjunctiva is not injected. Left conjunctiva is not injected. No scleral icterus. Neck: No JVD present. No tracheal tenderness, no spinous process tenderness and no muscular tenderness present. No rigidity. No tracheal deviation, no edema, no erythema and normal range of motion present. No thyroid mass and no thyromegaly present. Cardiovascular: Regular rhythm. Exam reveals no gallop, no S3, no S4 and no distant heart sounds. Pulmonary/Chest: No stridor. See exam above. Abdominal: She exhibits no distension, no pulsatile liver, no abdominal bruit, no ascites, no pulsatile midline mass and no mass. There is no hepatosplenomegaly. There is no rigidity, no rebound, no guarding and no CVA tenderness. No hernia. Musculoskeletal: Right shoulder: She exhibits no bony tenderness, no swelling, no effusion and no crepitus. Lymphadenopathy: Right cervical: No deep cervical and no posterior cervical adenopathy present. Left cervical: No deep cervical and no posterior cervical adenopathy present. Neurological: She is alert. She displays no atrophy and no tremor. No cranial nerve deficit or sensory deficit. She exhibits normal muscle tone. She displays no seizure activity. Coordination normal. She displays no Babinski's sign on the right side. She displays no Babinski's sign on the left side. Skin: No bruising, no ecchymosis and no laceration noted. Psychiatric: Her mood appears not anxious. Her affect is not angry, not blunt, not labile and not inappropriate. Her speech is not rapid and/or pressured, not delayed, not tangential and not slurred. She is not agitated, not aggressive, not hyperactive, not slowed, not withdrawn and not combative. She does not exhibit a depressed mood. She is communicative. Nursing note and vitals reviewed. Medications Current Outpatient Prescriptions Medication Sig Dispense Refill medroxyPROGESTERone (PROVERA) 10 MG tablet Take 1 Tab by mouth once daily. 10 Tab 0 Procedures Critical Care Performed by: JOHN HANNAH Authorized by: JOHN HANNAH Total critical care time: 75 minutes Critical care was necessary to treat or prevent imminent or life-threatening deterioration of the following conditions: respiratory failure (and hemoptysis, elevated troponin, acute diagnosis of cancer). Critical care was time spent personally by me on the following activities: development of treatment plan with patient or surrogate, discussions with consultants, interpretation of cardiac output measurements, evaluation of patient's response to treatment, examination of patient, obtaining history from patient or surrogate, ordering and performing treatments and interventions, ordering and review of laboratory studies, ordering and review of radiographic studies, pulse oximetry and re-evaluation of patient's condition. ECG Interpretation Date/Time: 02/18/2014 6:59 AM Interpreted by ED provider Rhythm: sinus rhythm Rhythm comments: with frequent ventricular complexes Rate: normal BPM: 97 Conduction: incomplete LBBB Other findings: LVH and prolonged QTc interval Other findings comments: woth repolarization abnormality ECG Rhythm Interpretation Lab Interpretation Oxygen Saturation Interpretation The oxygen saturation level is: 99%. The patient was on 5 lpm for the saturation measurement. Measurement frequency: Continuous. Oxygen saturation interpretation is Normal. Intervention(s) used: Oxygen Administration. Results for orders placed during the hospital encounter of 02/18/14 TROPONIN I Result Value Range Troponin I 0.099 (*) 0.000-0.049 ng/mL TROPONIN I Result Value Range Troponin I 1.310 (*) 0.000-0.049 ng/mL CBC W AUTO DIFFERENTIAL Result Value Range WBC 6.4 4.4-10.7 x10^9/L RBC 4.29 3.80-5.20 x10^12/L Hgb 12.4 12.0-15.6 gm/dL HCT 36.7 35.9-45.5 % MCV 85.5 80.7-98.3 fl MCH 28.9 26.7-34.0 pg MCHC 33.8 30.8-35.9 gm/dL Plt Ct 179 153-416 x10^9/L RDW-CV 13.7 12.1-14.9 % MPV 9.8 9.4-12.9 fl Neutro 62.5 44.0-73.0 % Lymph 29.2 20.0-43.0 % [place] 5.6 5.0-13.0 % Eos 1.7 0.0-6.0 % Baso 0.8 0.0-2.0 % Immature Grans 0.2 0-1 % Neutro Abs 4.02 2.01-7.14 x10^9/L Lymph Abs 1.88 1.07-3.94 x10^9/L [place] Abs 0.36 0.26-1.07 x10^9/L Eosin Abs 0.11 0-0.47 x10^9/L Baso Abs 0.05 0-0.08 x10^9/L Immature Grans Abs 0.01 0.00-0.06 x10^9/L COMPREHENSIVE METABOLIC PANEL Result Value Range Glucose 122 (*) 74-106 mg/dL Sodium 139 136-145 mmol/L Potassium 3.3 (*) 3.5-5.1 mmol/L Chloride 106 98-107 mmol/L CO2 27 22-31 mmol/L Calcium 8.8 8.5-10.1 mg/dL Anion Gap 6 5-15 mmol/L BUN 16 7-21 mg/dL Creatinine 0.73 0.50-1.30 mg/dL eGFR MDRD >60 >60 mL/min/1.73m2 eGFR MDRD AFR AMR >60 >60 mL/min/1.73m2 Alk Phos 88 38-126 U/L ALT/SGPT 38 12-78 U/L AST/SGOT 21 5-40 U/L Protein Total 6.5 6.4-8.2 gm/dL Albumin 3.4 3.4-5.0 gm/dL Bili Total 0.6 0.2-1.0 mg/dL B-TYPE NATRIURETIC PEPTIDE Result Value Range BNP 29 0-100 pg/mL ISTAT CG4+ ART Result Value Range Lactate/Lac mmol/l istat poc art 1.63 (*) 0.36-1.25 mmol/L pH Arterial 7.39 7.35-7.45 pH PCO2 Arterial 39.4 32-43 mmHg PO2 Arterial 84 72-104 mmHg HCO3 Arterial 23.7 22-26 mmol/L BE Arterial -1 -2-2 mmol/L TCO2 Arterial 25 22-29 mmol/L O2 Sat Arterial 96 90-100 % Sample ISTAT ARTERI XR CHEST 1VW PORTABLE Final Result: No acute disease. CT CHEST PE Final Result: 1. Negative for pulmonary embolism. 2. Groundglass opacity all lobes of both lungs possibly representing diffuse alveolar hemorrhage in this patient who presents with hemoptysis. Differential includes pulmonary edema and/or infection. 3. Partially imaged solid renal mass right kidney worrisome for renal cell carcinoma. Findings discussed with John Ball by Dr. Linn at 10:45 AM on February 18, 2014. Progress Notes 10:37 Radiology(Dr. Linn) update: Renal cell carcinoma with diffuse alveolar hemorrhage on CT chest. 10:[address] Martinez([facility]) all pertinent aspects of the case including HPI details, physical exam findings, testing completed, medications given, the pt's current condition, my clinical impression, and the need for admission for further evaluation and treatment. Dr. Martinez agrees to accept the patient at this time. We have agreed on an initial plan. 11:01 RN update: Troponin increased from 0.099 to 1.310. 11:06 Rechecked pt - pt is lying comfortably on back, reports improved sx. Updated pt on CT findings, clinical impression, tx plan, and plan to admit. Pt understands and agrees. 11:[address] Ryan(Pulmonary) all pertinent aspects of the case. Agrees to consult. 11:27 I discussed with AMANDA Ferrara for Dr. Townsend(Cardio) all pertinent aspects of the case. Agrees to consult. 11:49 Rediscussed pt case with Dr. Townsend. ED Course Medical Decision Making I have reviewed the: Nursing Notes and Vitals. I have interpreted the following results: Labs, 12 Lead EKG, X-Ray, CT Scans and Oxygen Saturation. I have discussed the case with Admitting Physician (Dr. Martinez([facility])), Cardiology (AMANDA Ferrara for Dr. Townsend), Pulmonary (Dr. Ryan) and Hospitalist (Dr. Martinez([facility])). Orders Placed This Encounter ED CRITICAL CARE XR CHEST 1VW PORTABLE CT CHEST PE XR CHEST 1VW PORTABLE TROPONIN I TROPONIN I CBC W AUTO DIFFERENTIAL COMPREHENSIVE METABOLIC PANEL B-TYPE NATRIURETIC PEPTIDE BASIC METABOLIC PANEL (CALCIUM TOTAL) CBC W AUTO DIFFERENTIAL IP CONSULT TO LABOR/EXCAVATOR IP CONSULT TO CARDIOLOGY IP CONSULT TO UROLOGY OXYGEN OXYGEN EKG 12-LEAD ECHOCARDIOGRAM 2D WITH DOPPLER (AKA ECHO CONSULT) 0.9% NaCl injection 2-10 mL 0.9% NaCl IV Bolus aspirin (ASPIRIN) chew tablet 324 mg nitroglycerin (NITROSTAT) tablet 0.4 mg acetaminophen (TYLENOL) tablet 650 mg iohexol (OMNIPAQUE 350) contrast enoxaparin (LOVENOX) injection 135 mg iodixanol (VISIPAQUE 320) injection medroxyPROGESTERone (PROVERA) 10 MG tablet 0.9% NaCl injection 10 mL And 0.9% NaCl injection 10 mL famotidine (PEPCID) injection 20 mg aspirin (ASPIRIN) chew tablet 81 mg Diagnosis: Final diagnoses: Shortness of breath Diffuse pulmonary alveolar hemorrhage (Primary) Elevated troponin Disposition: Admit to Step Down I have reviewed the information recorded by the scribe and agree with its accuracy and contents--Dr. Hannah 02/18/2014 2:34 PM Transcribed by Dot Babcock acting scribe on behalf of Dr. Hannah 02/18/2014 6:47 AM John Hannah MD PROCEDURE/MINOR SURG ICAL ORDERABLES * (ABNORMAL) TROPONIN I (02/18/2014 1:44 PM CDT) Only the most recent of3 resultswithin the time period is included. Troponin I 1.360(HH) 0.000 - 0.049 ng/mL 02/18/2014 3:22 PM CDT [facility] Blood BLOOD SPECIMEN / Unknown 02/18/2014 1:44 PM CDT 02/18/2014 2:59 PM CDT Narrative [facility] - 02/18/2014 3:22 PM CDT Note: Diagnosis of myocardial infarction requires symptoms of ischemia or EKG changes of ischemia and TNI >99th of normal (0.05 ng/mL). Troponin should be drawn on initial assessment and 3-6 hours later as clinically indicated. Any condition resulting in myocardial cell damage can increase cardiac troponin levels. In addition to myocardial infarction, these include but are not limited to CHF, arrhythmia, myocarditis, and non-cardiac related causes such as pulmonary embolism, renal failure and sepsis. John Hannah MD LAB - CHEMISTRY FAHAD FUENTES [facility] Organization Address City/State/ZIP Co de Phone Number [facility] [address] [place] [address] * CARDIAC CATH CONSULT (for Epic Reporting) (02/18/2014 12:00 PM CDT) 02/18/2014 12:0 0 PM CDT Narrative Transcriptions Phani Townsend MD - 02/19/2014 3:11 AM CDT [facility] CARDIAC CATHETERIZATION PATIENT: MARLENE SAL MR#: [id number] ADMIT DATE: 02/18/2014 CSN: [id number] PROCEDURE DATE: 02/18/2014 :1965 PHYSICIAN: Phani Townsend MD ROOM: [place] [address] REFERRING PHYSICIAN: John Hannah MD PROCEDURE: 1. Left heart catheterization. 2. Left ventriculography. 3. Selective coronary arteriography. CLINICAL SUMMARY: This is a 48-year-old white female admitted withflash pulmonary edema, troponin elevation, and cardiomyopathy onechocardiogram. Coronary angiography was undertaken. PROCEDURE: Cooper. SITE OF ENTRY: Right femoral artery. LOCAL ANESTHESIA: One percent Xylocaine. PREMEDICATIONS: Versed 3 mg, IV fentanyl 75 mcg IV. CATHETERS: A 5-Nigerien arterial sheath, 5-Nigerien pigtail, 5-Nigerien JL4,5- Nigerien 3DRC. PROCEDURE: The patient was brought to the catheterization laboratoryand prepped and draped in the usual sterile fashion. The right groin was anesthetized locally and the arterial sheath was inserted withoutdifficulty. Selective coronary arteriography was performed in multiple AZERBAIJANI and QUIROS projections using cranial and caudal angulation. Left ventriculogram was performed in the 30-degree QUIROS projection using 35mL of nonionic contrast at 14 mL/second. Femoral angiogram showed goodsheath position in the common femoral artery. The sheath was removed and a6-Nigerien Angio-Seal device deployed with good hemostasis. No femoral hematoma.Pedal pulses intact. Patient returned to the holding area in stablecondition. COMPLICATIONS: None. HEMODYNAMICS: PREANGIOGRAPHY PRESSURES: Aorta 110/66, left [id number]. LEFT VENTRICULOGRAM: Left ventricular systolic volume is moderately to markedly increased. Diastolic volume is moderately increased. The posterobasal and diaphragmatic segments are akinetic. Other wall segmentsare severely hypokinetic. Estimated ejection fraction is 30%. No mitral insufficiency. CORONARY ARTERIOGRAPHY: This is a left dominant coronary circulation. Coronary arteries are angiographically normal. FINDINGS: 1. Severe left ventricular systolic dysfunction with ejection fractionof 30%. 2. Angiographically normal coronary arteries. RECOMMENDATIONS: Aggressive medical therapy with beta haylee, ACEinhibitor, and spironolactone is recommended. PHANI TOWNSEND MD SIB/MODL #: [id number] MEDICAL/SURGICAL CARDIAC CATHETERIZATION - DP Phani Townsend MD ECHO ORDERABLES [facility] * CT CHEST PE (02/18/2014 8:47 AM CDT) Anatomical Region Laterality Modality Chest Computed Tomogra phy 02/18/2014 10:2 7 AM CDT Impressions 02/18/2014 10:46 AM CDT 1. Negative for pulmonary embolism. 2. Groundglass opacity all lobes of both lungs possibly representing diffuse alveolar hemorrhage in this patient who presents with hemoptysis. Differential includes pulmonary edema and/or infection. 3. Partially imaged solid renal mass right kidney worrisome for renal cell carcinoma. Findings discussed with John Ball by Dr. Linn at 10:45 AM on February 18, 2014. Narrative 02/18/2014 10:[address] PE Protocol Clinical Indication: Shortness of breath. Coughing up blood. Technique: The pulmonary embolus protocol was utilized. Axial CT images from the lung apices to the lung bases were obtained following Omnipaque 350 80cc intravenous contrast administration. Multiplanar maximum intensity projection reconstructions were created on an independent workstation. Findings: Lung windows show diffuse bilateral groundglass opacity involving all lobes of both lungs, without basal apical gradient. The central airways are patent. No significant bronchial wall thickening seen. Groundglass opacity extends all the way to the subpleural areas. There are no pleural effusions. No pneumothorax. Bone windows show no acute osseous abnormality. Soft tissue windows show no definite filling defect in the main, lobar, or segmental pulmonary arteries. The bolus timing is delayed which limits evaluation of the more distal pulmonary arteries. A small hiatal hernia is seen. Cholecystectomy clips noted. Partially imaged, infiltrative right renal mass. The mass measures at least 7.9 x 5.0 cm. No adrenal nodules or masses seen. No adenopathy visualized in the upper abdomen. A presumed cyst is seen in the left kidney. Procedure Note Edgardo Linn MD - 02/18/2014 CT PE Protocol Clinical Indication: Shortness of breath. Coughing up blood. Technique: The pulmonary embolus protocol was utilized. Axial CT images from the lung apices to the lung bases were obtained following Omnipaque 350 80cc intravenous contrast administration. Multiplanar maximum intensity projection reconstructions were created on an independent workstation. Findings: Lung windows show diffuse bilateral groundglass opacity involving all lobes of both lungs, without basal apical gradient. The central airways are patent. No significant bronchial wall thickening seen. Groundglass opacity extends all the way to the subpleural areas. There are no pleural effusions. No pneumothorax. Bone windows show no acute osseous abnormality. Soft tissue windows show no definite filling defect in the main, lobar, or segmental pulmonary arteries. The bolus timing is delayed which limits evaluation of the more distal pulmonary arteries. A small hiatal hernia is seen. Cholecystectomy clips noted. Partially imaged, infiltrative right renal mass. The mass measures at least 7.9 x 5.0 cm. No adrenal nodules or masses seen. No adenopathy visualized in the upper abdomen. A presumed cyst is seen in the left kidney. IMPRESSION 1. Negative for pulmonary embolism. 2. Groundglass opacity all lobes of both lungs possibly representing diffuse alveolar hemorrhage in this patient who presents with hemoptysis. Differential includes pulmonary edema and/or infection. 3. Partially imaged solid renal mass right kidney worrisome for renal cell carcinoma. Findings discussed with John Ball by Dr. Linn at 10:45 AM on February 18, 2014. John Hannah MD CT ORDERABLES * B-TYPE NATRIURETIC PEPTIDE (02/18/2014 7:05 AM CDT) BNP 29 0 - 100 pg/mL 02/18/2014 8:22 AM CDT [facility] Blood BLOOD SPECIMEN / Unknown 02/18/2014 7:05 AM CDT 02/18/2014 7:11 AM CDT John Hannah MD LAB - CHEMISTRY FAHAD FUENTES [facility] Organization Address City/State/ZIP Co de Phone Number [facility] [address] [place] [address] * (ABNORMAL) ISTAT CG4+ ART (02/18/2014 7:03 AM CDT) Lactate iSTAT Arterial POCT 1.63(H) 0.36 - 1.25 mmol/L 02/18/2014 7:09 AM CDT [facility] pH Arterial POCT 7.39 7.35 - 7.45 pH 02/18/2014 7:09 AM CDT [facility] pCO2 Arterial 39.4 32 - 43 mmHg 02/18/2014 7:09 AM CDT [facility] pO2 Arterial 84 72 - 104 mmHg 02/18/2014 7:09 AM CDT [facility] HCO3 Arterial POCT 23.7 22 - 26 mmol/L 02/18/2014 7:09 AM CDT [facility] BE Arterial -1 -2 - 2 mmol/L 02/18/2014 7:09 AM CDT [facility] TCO2 Arterial Calc POCT 25 22 - 29 mmol/L 02/18/2014 7:09 AM CDT [facility] O2 Saturation Arterial 96 90 - 100 % 02/18/2014 7:09 AM CDT [facility] Sample iSTAT ARTERI 02/18/2014 7:09 AM CDT [facility] Blood ARTERIAL BLOOD SPECIMEN / Unknown 02/18/2014 7:03 AM CDT 02/18/2014 7:08 AM CDT John Hannah MD LAB - POINT OF CARE ORDERABLES Performing Organization Address City/State/[facility] Co de Phone Number [facility] [address] [place], [place] [address] Care Teams Tube Builder Relationship Specialty Start Date End Date Shadi Molina MD [address] [place] [address] PCP - General Family Medicine 12/30/21 Lynette Henry, RN Eddy Current Inspector 02/18/14 Phani Townsend MD Cardiovascular Disease 12/10/19 [place] [address] [place] [address] Cardiovascular Disease 10/05/23
[2024-07-24 16:54] LABS: Kit Draw Collected
== END 2024-07-24 11:43 | disposition home or self-care (01) ==
LOC: ANHGOSHLAB 11:43
PROVIDERS: PCP Family Medicine; Visit Provider Family Medicine
DX: I10 Essential (primary) hypertension (principal); E11.9 Type 2 diabetes mellitus without complications
CPT/HCPCS: 36415

== ENCOUNTER 2024-08-08 15:07 | Outpatient (CLI) | payer BC, SELFPAY ==
--- NOTE | ~2024-08-08 | US_ITS ---
EXAM: RENAL ULTRASOUND HISTORY: Renal mass COMPARISON: Reference is made to a CT examination of the abdomen and pelvis dated 06/02/2020 FINDINGS: RIGHT KIDNEY: Surgically absent LEFT KIDNEY: 12.9 x 6.3 x 7.9 cm No hydronephrosis or renal calculi. A single rounded avascular anechoic focus is identified within the upper pole of the left kidney shelby uring 4.4 x 3.9 x 4.2 cm, consistent with a simple cyst, unchanged from prior CT examination performe d in 2020. Within the lower pole of the left kidney is a well-circumscribed isoechoic vascular focus measuring 3 .3 x 2.4 x 2.8 cm, an interval change from previous CT examination for which a malignancy is suspecte d. BLADDER: Distended, and otherwise unremarkable. IMPRESSION: Stable simple cyst within the upper pole of the left kidney. Indeterminate isoechoic vascular focus within the lower pole of the left kidney, an interval change f rom 2020 CT examination for which contrast enhanced MRI versus CT is recommended (with renal mass pro tocol). Reviewed, dictated and finalized at location A. IMPRESSION: Stable simple cyst within the upper pole of the left kidney. Indeterminate isoechoic vascular focus within the lower pole of the left kidney , an interval change from 2020 CT examination for which contrast enhanced MRI v ersus CT is recommended (with renal mass protocol).
== END 2024-08-08 15:08 | disposition home or self-care (01) ==
LOC: MICIMG 15:09
PROVIDERS: PCP Family Medicine; Visit Provider Urology
DX: N28.89 Other specified disorders of kidney and ureter (principal); N28.1 Cyst of kidney, acquired
CPT/HCPCS: 76775

== ENCOUNTER 2024-09-09 12:27 | Outpatient (CLI) | payer BC, SELFPAY ==
--- NOTE | ~2024-09-09 | MR_ITS ---
EXAMINATION: MR abdomen wo/w con DATE: 09/09/2024 14:38 INDICATION: Renal mass TECHNIQUE: Magnetic resonance imaging (MRI) of the abdomen was performed without and with 20 mL Multi vanesa intravenous contrast. Sequences included coronal T2-weighted SS-FSE, coronal and axial FS 2D-F IESTA, axial STIR FSE, axial T2-weighted SS-FSE, axial T2-weighted FS SS-FSE, axial diffusion-weighte d SE, axial dual-echo T1-weighted FSPGR, and axial and coronal T1-weighted LAVA. Postcontrast axial T 1-weighted LAVA images were obtained in a time course. Postcontrast coronal T1-weighted LAVA images w ere obtained. COMPARISON: Ultrasound dated 08/08/2024 FINDINGS: Heart size is normal. Magnetic field artifact associated with median sternotomy wires and aortic valv e repair. No pericardial or pleural effusion. Additional linear field artifact associated with cholec ystectomy clips at the gallbladder fossa. Liver, pancreas, bilateral adrenal glands are normal. Posto perative change of prior right nephrectomy. T2 hyperintense nonenhancing renal cysts, the largest katt suring 4.1 cm the remainder <1 cm. 2.5 cm enhancing exophytic mass arising from the lower pole of the left kidney corresponding to the solid-appearing exophytic lesion of concern seen on prior ultrasoun d and concerning for renal cell carcinoma. Visualized portions of bowels are unremarkable with no obs truction. No pathologically enlarged abdominal lymphadenopathy. Mild lumbar levocurvature with modera te to severe right-sided prominent disc height loss at L3-L4 with associated fibrofatty degenerative endplate changes. Bone marrow signal is otherwise normal throughout. IMPRESSION: 1. 2.5 cm enhancing exophytic mass at the lower pole of the left kidney consistent with renal cell ca rcinoma. Reviewed, dictated and finalized at location A. IMPRESSION: 1. 2.5 cm enhancing exophytic mass at the lower pole of the left kidney consist ent with renal cell carcinoma.
--- OUTSIDE RECORDS SUMMARY | 2024-09-09 13:40 | XMS_ITS | Clinical Summary ---
Author Organization [facility] Address [address] [facility] [place] [address] Care Team Providers Care Supervisor Kennel Name Role Phone Lynette Henry RN Unavailable [phone] Raul Jacobo MD Unavailable Unavailable Shadi Molina MD Primary Care Provider Cresencio Cisse MD Unavailable [phone] Source Comments [facility],non-owned Affiliates and Associated Physician Practices is amultiple site organization consisting of ambulatory clinics and hospital sitesin [place], [place], [place] and [place]. This disclosure is being madepursuant to the Care Everywhere program and may not contain all information available regarding this patient. Last updated 18.[facility] Allergies No known active allergies Medications * Be aware that medications may not be up to date on this document. Alwaysverify current medications with the patient. aspirin (ASPIRIN) 81 MG chew tablet Take 1 Tab by mouth once daily. 4 Active multivitamin daily (THERAGRAN) tablet Take 1 Tab by mouth daily with breakfast. 4 Active allopurinol (ZYLOPRIM) 300 MG tablet 1 (one) tablet once daily 5 Active oxybutynin CR 24hr (DITROPAN-XL) 5 MG tablet TAKE 1 TABLET DAILY 90 tablet 11 8 Active Vitamin D, Cholecalcifero l, 1000 units Take 1 (one) tablet by mouth once daily Active simvastatin (Zocor) 20 MG tablet Combined both atorvastatin and simvastatin in the toshia bottle and takes whatever comes out. 4 Active dulaglutide (Trulicity) 0.75 MG/0.5ML injection Inject 0.75 (three-quarters) mg subcutaneously every 7 days Active empagliflozin (Jardiance) 10 MG tablet Take 1 (one) tablet by mouth once daily 100 tablet 3 4 025 Active empagliflozin (Jardiance) 10 MG tablet Take 1 (one) tablet by mouth once daily 90 tablet 3 4 Active carvedilol (Coreg) 25 MG tablet Take 1 (one) tablet by mouth 2 times daily with morning and evening meal 180 tablet 3 5 026 Active furosemide (Lasix) 20 MG tablet Take 1 (one) tablet by mouth once daily 90 tablet 3 5 026 Active losartan (Cozaar) 50 MG tablet Take 1 (one) tablet by mouth once daily 90 tablet 3 5 Active Active Problems Problem Noted Date Diagnosed Date S/p TAVR (transcatheter aort ic valve replacement), bioprosthetic 09/25/2023 Overview (09/25/2023): 09/25/23 Dr. Patterson/Dr. Foy implanted an Pathful 26 mm S3 Ultra via RCFA access. [...] insufficiency, severe , s/p bioprosthetic AVR in 01/2014 04/21/2014 09/18/2015 Hemoptysis 02/18/2014 04/21/2014 Elevated troponin 02/18/2014 04/21/2014 Renal mass, bilateral 02/18/20142014 Encounters Date Type Department Care Team Description 07/12/2024 Telephone [facility] [place] [facility] [address] [facility], [facility] [address] [place] [address] Cyndee Weaver MD Med Change Request 07/12/[address] [facility] [place] [facility] [address] [facility], [facility] [address] [place] [address] Cyndee Weaver MD MEDICATION REFILL 06/25/2024 Refill [facility] [place] [facility] [address] [facility], [facility] [address] [place] [address] Cyndee Weaver MD MEDICATION REFILL from Last 3 Months Social History Tobacco [...] and heating? Not hard at all 09/26/2023 [facility] [place] of Occupat ional Health - Occupational Stress [...] place to sleep or slept in a skilled nursing (including now)? No 09/26/2023 Comments No Sex and Gender Information Value Date Recorded Sex Assigned at Not on file Legal Sex Female 6:52 AM CDT Gender Identity Not on file Sexual Orientation Not on file Last Filed Vital Signs Vital Sign Reading Time Taken Comments Blood Pressure 116/69 04/23/2024 11:09 AM BILLING CUSTOMER SERVICE REPRESENTATIVE Pulse 76 04/23/2024 11:09 AM BILLING CUSTOMER SERVICE REPRESENTATIVE Temperature 36.5 C (97.7 F) 09/26/2023 7:39 AM CDT Respiratory Rate 20 09/26/2023 7:39 AM CDT Oxygen Saturation 100% 09/26/2023 9:25 AM CDT Inhaled Oxygen Concentration 21% 11:35 PM CDT Weight 167.9 kg (370 lb 3.2 oz) 024 11:09 AM BILLING CUSTOMER SERVICE REPRESENTATIVE Height 175.3 cm (5' 9.02 ) 04/23/2024 1 1:09 AM BILLING CUSTOMER SERVICE REPRESENTATIVE Body Mass Index 54.64 04/23/2024 11:09 AM BILLING CUSTOMER SERVICE REPRESENTATIVE Plan of Treatment Upcoming Encounters Date Type Department Care Team (Late st Contact Info) Description 10/23/2024 11:10 AM CDT Office Visit [facility] Care [address] [facility], [address] [place] [address] [place] [address] [facility] [address] [place] [address] Health Maintenance Due Date Last Done Comments [...] 2014 COVID-19 VACCINE (1 - season) 2024 Respiratory Syncytial Virus (RSV) Vaccine Pt: or over 60 yrs (1 - Risk 60-74 years 1-dose series) 2024 DEPRESSION SCREENING 05/29/2024 INFLUENZA VACCINE (Season Ended) 2025 02/26/2022, 02/26/2021 SCREENING FOR DIABETES 09/25/2026 , 09/25/2023, 09/25/2023, Additional history exists HEPATITIS B VACCINE Aged Out No longe r eligible based on patient's age to complete this topic HIB VACCINE Aged Out No longer eligi ble based on patient's age to complete this topic HPV VACCINE Aged Out No longer eligi ble based on patient's age to complete this topic MENINGOCOCCAL (Group B) VACCINE SHARED DECISION-MAKING Aged Out No longer eligible based on patient's age to complete this topic MENINGOCOCCAL GROUPS A/C/Y/W VACCINE Aged Out No longer eligible based on patient's age to complete this topic Medical Devices Implanted Type Area News Technical Director Device Identifier Shelf Expiration Date Model / Serial / Lot Vascular Graft Implanted:Qty: 1 on 03/07/2014 by Hammad Reno MD at [facility] Graft Aorta Maquet 07/29/2017 [id number] / / Vlv Magna Ease All - [id number] Implanted:Qty: 1 on 03/07/2014 by Hammad Reno MD at [facility] N/A: Heart [employer] 10/05/2017 [id number] / [id number] / Cath Pace Eltrd Biplr Dist Tip Sara Flw - [id number] Implanted:Qty: 1 on 09/25/2023 by Toshia Patterson MD at [facility] [employer] [id number] 02/25/2025 [id number] / [id number] / [id number] Valve Aor Evolut Fx 29mm - [id number] Implanted:Qty: 1 on 09/25/2023 by Toshia Patterson MD at [facility] [employer] [id number] 05/31/2025 [id number] X- 29 / [id number] / [id number] Vlv Aor 26mm Amparo 3 Cmndr Edwrd - [id number] Implanted:Qty: 1 on 09/25/2023 by Toshia Patterson MD at [facility] [employer] [id number] 06/25/2026 [id number] / [id number] / [id number] Procedures Procedure Name Priority Date/Time Associated Diagnosis Comments RENAL FUNCTION PANEL AM Draw 09/26/2023 6:11 AM CDT from Last 3 Months or Most Recently Relevant to Health Maintenance Results * (ABNORMAL) RENAL FUNCTION PANEL (09/26/2023 6:11 AM CDT) BUN 13 7 - 26 mg/dL 09/26/2023 6:58 AM [facility] Creatinine 0.89 0.56 - 0.96 mg/dL 09/26/2023 6:58 AM [facility] Sodium 140 136 - 145 mmol/L 09/26/2023 6:58 AM [facility] Potassium 3.9 3.5 - 4.5 mmol/L 09/26/2023 6:58 AM [facility] Chloride 110(H) 98 - 107 mmol/L 09/26/2023 6:58 AM [facility] CO2 23 22 - 29 mmol/L 09/26/2023 6:58 AM [facility] Glucose 94 70 - 115 mg/dL 09/26/2023 6:58 AM [facility] Albumin 3.3(L) 3.4 - 5.0 g/dL 09/26/2023 6:58 AM [facility] Calcium 9.7 8.4 - 10.2 mg/dL 09/26/2023 6:58 AM [facility] Phosphorus 2.9 2.9 - 5.1 mg/dL 09/26/2023 6:58 AM [facility] Anion Gap 7 6 - 16 09/26/2023 6:58 AM [facility] BUN/Creatinine Ratio 15 7 - 23 09/26/2023 6:58 AM [facility] Osmolality Calculated 290 275 - 295 mOsm/kg 09/26/2023 6:58 AM [facility] eGFR by CKD-EPI 75(L) >=90 mL/min/1.7 3 m2 09/26/2023 6:58 AM [facility] Blood BLOOD SPECIMEN / Unknown Lab Venipuncture / Unknown 09/26/2023 6:11 AM CDT 09/26/2023 6:25 AM T Toshia Patterson MD LAB - CHEMISTRY ORDERABLES Final Result Performing Organization Address [facility]/State/ZIP Co de Phone Number [facility] [address] [place] [address], [facility] [phone] from Last 3 Months or Most Recently Relevant to Health Maintenance Insurance DASH Advance Directives * Full Code (Latest Code [...] 1:05 PM 03/12/2014 2:13 PM Care Teams Supervisor Kennel Relationship Specialty Start Date End Date Shadi Molina MD [address] [place] [address] PCP - General Family Medicine 12/30/21 Lynette Henry, RN [employer] Dispatcher 02/18/14 Raul Jacobo MD Cardiovascular Disease 12/10/19 [place] [address] [address] Cardiovascular Disease 10/05/23
--- OUTSIDE RECORDS SUMMARY | 2024-09-09 13:40 | XMS_ITS | Patient Health Record ---
Author Organization [facility] Address [address] [facility] [address] [place], [place] [address] Care Team Providers Care Washer And Capper Machine Operator Name Role Phone Barby MORRISON, David Primary Care Provider Jose Eduardo Sotelo MD, Ace Unavailable Unavailable Reason For Referral No Information Medications Medication SIG (Take, Route, Frequency, Duration) Notes Start Date End Date Status Ramipril 5 MG 1 Capsule Orally QD Active Multivitamin w/o Iron 1 Tablet Oral Once a Day Active oxyBUTYnin Chloride ER 5 MG 1 Tablet Ora lly Once a Day Active Coreg 6.25 MG 2 Tablets Orally Onc e a Day Active Aspirin 81 MG 1 Tablet Orally Once a Day Active Allopurinol 300 MG 1 Tablet Orally Once a Day Active Problems Problem Type SNOMED Code ICD Code Onset Dates Problem Status W/U Status Risk Notes Problem 676438426 Diabetes 1.5, 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 Problem 5695679 Aortic valve disease (I35.9) Active confirmed Problem 129313125 Obesity (E66.9) Active confirmed pt is advised to lose weight Problem 570856 Valvular heart disease (I38) Active confirmed previous cardiac valve replacement Problem 268488862 History of nephrectomy (Z90.5) Active confirmed Plan Of Treatment Pending Test Test Name Order Date Ultrasound : Kidneys, bilate ral and urinary bladder with post void residual 06/19/2015 Ultrasound : Kidneys, bilate ral and urinary bladder with post void residual 08/25/2015 Comp. Metabolic Panel (14) 06/19/2015 *CREATININE CLEARANCE 24 hour urine 05/30 Hemoglobin A1C 08/25/2015 random urine for protein to creatine rat io 08/25/2015 random urine for protein to creatine rat io 06/19/2015 Lipid Panel 08/25/2015 Comp Metabolic Panel 08/25/2015 STANTON titer 06/19/2015 Insurance Providers Payer Name Payer Address Payer Phone Subscriber Number Group Number Insured Name Patient Relationship to Insured Coverage Start Date Coverage End Date Ml [facility] [address] [place] [address] [id number] Marlene Hopkins Self - patient is the insured Medical (General) History Medical History History ICD Code HTN hyperlipidemia DM R nephrectomy aortic valve surgery DJD Surgical History Surgery Date(Month/Year) gallbladder aortic valve L knee torn meniscus
--- OUTSIDE RECORDS SUMMARY | 2024-09-09 13:40 | XMS_ITS ---
Author Organization [facility] Address [address] [facility] [place] [address] Care Team Providers Care Aix Architect Name Role Phone Lynette Henry RN Unavailable [phone] Raul Jacobo MD Unavailable Unavailable Shadi Molina MD Primary Care Provider Cresencio Cisse MD Unavailable [phone] Active Problems Problem Noted Date Diagnosed [...] hypertension 10/12/2013 Overview (12/30/2021): BENIGN HYPERTENSION Current Treatment and Therapy Plans No current plan information found. Past Treatment and Therapy Plans No past plan information found. Lifetime Dose Tracking * Chemical Lifetime Dose Automatic Entry Manual Entr y Air Kerma 4,436.45 mGy 0 mGy 4,436.45 mGy Resolved Problems Problem Noted Date Diagnosed Date Resolved Date Renal mass 05/11/2014 09/22/2014 Aortic insufficiency, severe , s/p bioprosthetic AVR in 01/201404/21/2014 09/18/2015 Hemoptysis 02/18/2014 04/21/2014 Elevated troponin 02/18/2014 04/21/2014 Renal mass, bilateral 02/18/20142014
--- OUTSIDE RECORDS SUMMARY | 2024-09-09 13:40 | XMS_ITS | Clinical Summary ---
Author Organization [facility] Address [address] [place] [address] Phone Care Team Providers Care Tool Crib Lead Name Role Phone Shadi Molina MD Primary Care Provider Allergies No known active allergies Medications aspirin (ASPIR) 81 MG EC tablet 1 daily 0 06/01/2018 Act gm Multiple Vitamins-Mineral s (MULTIVITAMIN ADULT) tablet 1 alex;u 0 06/01/2018 Activ e allopurinol (ZYLOPRIM) 300 MG tablet 1 bid 0 06/01/2018 Active Cholecalciferol (VITAMIN D3) 1000 units capsule 1 daily 0 06/04/2018 Active oxybutynin XL (DITROPAN-XL) 10 MG 24 hr tablet 04/22/2019 Act gm atorvastatin (LIPITOR) 20 MG tablet 04/09/2019 Active metFORMIN (GLUCOPHAGE) 1000 MG tablet TK 1 T PO D 10/22/2019 Ac tive ramipril (ALTACE) 10 MG capsule 05/17/2021 Active [...] disease, stage 3 (moderate) 06/04/2018 05/14/2021 Immunizations Immunization Administration Dates Next Due Influenza TIV (IM) 02/26/2022,,06/05/2019(Deferred: Patient Refused) Tdap 04/01/2009 Family History Medical History Relation Comments Kidney disease Neg Hx Social History Tobacco Use Types Packs/Day Years Used Date Smoking Tobacco: Never Smokeless Tobacco: Never Alcohol Use Standard Drinks/Week Comments Yes 0 (1 standard drink = 0.6 oz pur e alcohol) Alcoholic Drinks/day: rare Comments Unknown Sex and Gender Information Value Date Recorded Sex Assigned at Not on file Legal Sex Female 9:48 AM MST Gender Identity Not on file Sexual Orientation Not on file Last Filed Vital Signs Vital Sign Reading Time Taken Comments Blood Pressure 118/80 05/18/2022 1:11 PM CAD INTERN Pulse 72 05/18/2022 1:11 PM CAD INTERN Temperature 35.4 C (95.7 F) 05/18/2022 1:11 PM CAD INTERN Respiratory Rate - - Oxygen Saturation - - Inhaled Oxygen Concentration - - Weight 180 kg (397 lb) 05/18/2022 1:11 PM CAD INTERN Height 172.7 cm (5' 8 ) 05/18/2022 1:11 PM CAD INTERN Body Mass Index 60.36 05/18/2022 1:11 PM CAD INTERN Plan of Treatment Health Maintenance Due Date Last Done Comments Influenza Vaccine (Season Ended) 2025 02/27/20 22, 02/26/2021 Insurance BLUE CROSS - [place] ([place]) Care Teams Tool Crib Lead Relationship Specialty Start Date End Date Shadi Molina MD [address] [place] [address] PCP - General Internal Medicine 04/26/21
--- OUTSIDE RECORDS SUMMARY | 2024-09-09 13:40 | XMS_ITS | Encounter Summary ---
Author Organization [facility] Address [address] [facility] [place] [address] Care Team Providers Care Exhaust Emissions Inspector Name Role Phone Joanne Louis MD Primary Care Provider [phone] Lynette Henry RN Unavailable [phone] David Dior MD Primary Care Provider [phone] Raul Jacobo MD Unavailable Unavailable Shadi Molina MD Primary Care Provider Cresencio Cisse MD Unavailable [phone] Encounter Details Date Type Department Care Team (Late st Contact Info) Description 06/20/2014 Therapy Visit [facility] [address], [address] [place], [place] [id number] Raul Jacobo MD Social History Tobacco Use Types Packs/Day Years Used Date Smoking Tobacco: Never Smokeless Tobacco: Never Alcohol Use Standard Drinks/Week Comments No 0 (1 standard drink = 0.6 oz pur e alcohol) Comments No Sex and Gender Information Value Date Recorded Sex Assigned at Not on file Legal Sex Female 6:52 AM CDT Gender Identity Not on file Sexual Orientation Not on file documented as of this encounter Functional Status * Is person deaf or have serious hearing difficulty? Answer Date of Assessment Author No 05/12/2014 6:22 AM Myriam Angela RN * Is person blind or have serious difficulty seeing? Answer Date of Assessment Author No 05/12/2014 6:22 AM PRODUCTION LINE MECHANIC Hawley, Mar y G., RN * Does person have serious difficulty walking/climbing stairs? Answer Date of Assessment Author No 05/12/2014 6:22 AM Myriam Angela RN * Does person have difficulty dressing/bathing? Answer Date of Assessment Author No 05/12/2014 6:22 AM Myriam Angela RN * Does person have difficulty doing errands alone? Answer Date of Assessment Author No 05/12/2014 6:22 AM Myriam Angela RN documented as of this encounter Mental Status * Does person have difficulty concentrating/remembering/making decisions? Answer Entry Date Author No 05/12/2014 6:22 AM Myriam Angela RN documented in this encounter Plan of Treatment Upcoming Encounters Date Type Department Care Team (Late st Contact Info) Description 10/23/2024 11:10 AM CDT Office Visit [facility] Heart [facility]ascular Care [address] [facility] [address] [place] [address] [place] [address] [address] documented as of this encounter Visit Diagnoses Not on filedocumented in this encounter Care Teams Exhaust Emissions Inspector Relationship Specialty Start Date End Date Joanne Louis MD [address] [place] [id number] PCP - General Family Medicine 02/18/14 10/01/18 David Dior MD [address] [place] [address] PCP - General Family Medicine 10/02/18 12/29/21 Shadi Molina MD [address] [place] [address] PCP - General Family Medicine 12/30/21 Lynette Henry RN Associate [employer] 02/18/14 Raul Jacobo MD [address] [place] [address] Cardiovascular Disease 12/10/19 [place] [address] [address] Cardiovascular Disease 10/05/23 documented as of this encounter
== END 2024-09-09 12:28 | disposition home or self-care (01) ==
PROVIDERS: PCP Family Medicine; Visit Provider Urology
DX: N28.89 Other specified disorders of kidney and ureter (principal)
CPT/HCPCS: 74183; A9577

== ENCOUNTER 2025-02-07 11:31 | Emergency (ER) | payer BC, SELFPAY ==
[2025-02-07 11:38] VITALS: BP 146/77; PULSE 62; RESP 20; TEMP 36.9; O2SAT 99
--- NOTE | 2025-02-07 12:01 | ED.SKABFB ---
HPI - Skin/Abscess/Foreign Bdy General Chief complaint: Skin/Abscess/Foreign Body Stated complaint: Allergic Reaction Time Seen by Provider: 02/07/25 12:01 Source: patient Mode of arrival: ambulatory Limitations: no limitations History of Present Illness HPI narrative: 59 yo F presents with poison bella rash to chest, between breast and L side neck. Started after pulling weeds two days ago. Taking benadryl for itching and using anti itch cream. All systems reviewed and negative except as noted above. Related Data Home Medications ?Medication ?Instructions ?Recorded ?Confirmed ?Last Taken ?Type aspirin 81 mg tablet,delayed 81 mg PO DAILY 04/22/19 01/28/25 Unknown History release (Martine Low Dose Aspirin) multivitamin 1 tablet PO DAILY 04/22/19 01/28/25 Unknown History cholecalciferol (vitamin D3) 50 50 mcg PO DAILY 04/28/20 01/28/25 Unknown History mcg (2,000 unit) capsule carvedilol 25 mg tablet (Coreg) 25 mg PO Q12H 07/17/23 01/28/25 Unknown History famotidine 20 mg tablet (Pepcid) 20 mg PO DAILY gerd 01/28/25 01/28/25 Unknown History furosemide 20 mg tablet 20 mg PO DAILY PRN 01/28/25 01/28/25 Unknown History Allergies Allergy/AdvReac Type Severity Reaction Status Date / Time No Known Allergies Allergy Mild Verified 02/07/25 11:53 [facility] Past Medical History Medical History GERD without esophagitis Overweight (05/02/16) Nonischemic cardiomyopathy Chronic right hip pain Bilateral chronic knee pain Type 2 diabetes mellitus without complications Left foot pain Hx of renal cell carcinoma Cyst of skin Right lower quadrant pain Disorder of kidney and ureter, unspecified (~04/2014) Essential (primary) hypertension (~2013) Chronic gout, unspecified, 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) Hyperlipidemia LDL goal <100 (~10/2018) Obstructive sleep apnea on CPAP (~06/07/05) Overactive bladder (~05/2013) Postmenopausal (~05/2013) Surgical History Surgical History History of partial nephrectomy (~11/2024) left lower pole due to RCC Status post transcatheter aortic valve replacement (~08/2023) Hx of colonoscopy with polypectomy (~03/2020) H/O of hysterectomy with bilateral oophorectomy (~1999) d/t endometriosis S/P aortic valve replacement (~02/2014) H/O right nephrectomy (~05/12/14) S/P robot-assisted surgical procedure (~05/12/14) Family History Family History Mother Family history of migraine headaches Cerebrovascular accident Hypothyroidism (acquired) H/O parathyroidectomy Father , 2016 Hypertension Diabetes mellitus Throat cancer Other Hypothyroidism (acquired) Social History Social History Social History: . . 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 There is no relevant family history pertinent to the presenting complaint. Exam Narrative: GENERAL: This is a well-nourished, well-developed patient, in no apparent distress. HEAD: normocephalic, atraumatic. EYES: PERRL. Sclera clear/white. Vision is grossly intact. EARS: External ears normal NOSE: External nose normal NECK: Neck supple, non-tender without lymphadenopathy, masses or thyromegaly. CARDIOVASCULAR: Regular rate and rhythm without murmurs, gallops, or rubs. RESPIRATORY: Clear to auscultation. Breath sounds equal bilaterally. No wheezes, rales, or rhonchi. SKIN: warm, Dry, good texture and turgor. erythematous vesicular weeping rash to chest, L side of neck and between breasts NEURO: awake, alert, and oriented to person, place and time. There were no obvious focal neurologic abnormalities. EXTREMITIES: No joint tenderness, effusion, or edema noted. Course Course Level of Care: Express Care Visit Vital Signs Vital signs: Vital Signs Temperature 36.9 C 02/07/25 11:38 Pulse Rate 62 02/07/25 11:38 Respiratory Rate 20 02/07/25 11:38 Blood Pressure 146/77 H 02/07/25 11:38 Pulse Oximetry 99 02/07/25 11:38 Oxygen Delivery Room Air 02/07/25 11:38 Temperature 36.9 C 02/07/25 11:38 Pulse Rate 62 02/07/25 11:38 Respiratory Rate 20 02/07/25 11:38 Blood Pressure 146/77 H 02/07/25 11:38 Pulse Oximetry 99 02/07/25 11:38 Oxygen Delivery Room Air 02/07/25 11:38 reviewed MDM - Skin/Abscess/Foreign Bdy MDM Narrative Medical decision making narrative: Will treat poison bella rash with prednisone, triamcinolone. Will continue an antihistamine either Benadryl or Zyrtec at home. Patient is well-appearing, nontoxic. Differential Diagnosis Differential diagnosis: Likely urticaria, cellulitis, eczema, insect bites and contact dermatitis Discharge Plan Discharge Clinical Impression: Dermatitis due to plants, including poison bella, sumac, and oak Patient Disposition: Home Condition: Stable Instructions: Antibiotic Form, Poison Bella (ED) Additional Instructions: Take prednisone as prescribed. apply steroid cream sparingly to affected areas. Avoid face. May take [id number] Benadryl as needed for itching. Follow-up with your primary care physician if not improving. Patient Language: [place] Prescriptions: New prednisone 10 mg tablet See Rx Instructions .ROUTE .COMPLEX Qty: 42 0RF Rx Instructions: Take 6 tablets for 2 days Take 5 tablets for 2 days Take 4 tablets for 2 days Take 3 tablets for 2 days Take 2 tablets for 2 days Take 1 tablet for 2 days triamcinolone acetonide 0.1 % cream 1 applic topical BID PRN (Reason: insect bite) Qty: 30 0RF No Action cholecalciferol (vitamin D3) 50 mcg (2,000 unit) capsule 50 mcg PO DAILY aspirin [Martine Low Dose Aspirin] 81 mg tablet,delayed release (DR/EC) 81 mg PO DAILY multivitamin Tablet 1 tablet PO DAILY carvedilol [Coreg] 25 mg tablet 25 mg PO Q12H Rx Instructions: must administer with a meal/food furosemide 20 mg tablet 20 mg PO DAILY PRN famotidine [Pepcid] 20 mg tablet 20 mg PO DAILY simvastatin 20 mg tablet 20 mg PO QHS Qty: 90 1RF oxybutynin chloride 10 mg tablet extended release 24hr 10 mg PO DAILY Qty: 90 1RF Trulicity 3 mg/0.5 mL pen injector 3 mg subcut WEEKLY Qty: 2 3RF Follow-up/Referrals: Phil Molina MD [Primary Care Provider, Family Practice] Time of Disposition: 12:16
== END 2025-02-07 12:20 | disposition home or self-care (01) ==
PROVIDERS: Emergency Provider Nurse Practitioner Family; PCP Family Medicine
DX: L23.7 Allergic contact dermatitis due to plants, except food (principal); K21.9 Gastro-esophageal reflux disease without esophagitis; I42.8 Other cardiomyopathies; E11.9 Type 2 diabetes mellitus without complications; E78.5 Hyperlipidemia, unspecified; G47.33 Obstructive sleep apnea (adult) (pediatric); Z85.528 Personal history of other malignant neoplasm of kidney; Z90.5 Acquired absence of kidney; Z95.2 Presence of prosthetic heart valve; Z79.82 Long term (current) use of aspirin
CPT/HCPCS: 99213; G0463